=== PATIENT | male | born 1940 | race Caucasian/White ===

== ENCOUNTER 2022-04-17 09:50 | Inpatient (IN) | payer MEDICARE, SELFPAY ==
[2022-04-17] VITALS (15 sets, daily range): BP systolic 104–149; BP diastolic 65–92; PULSE 77–89; RESP 16–20; TEMP 37.2–37.4; O2SAT 91–98; BMI 26.4
--- NOTE | 2022-04-17 12:29 | CRLHL7_ITS ---
For Patients: As a result of the Century Cures Act, medical imaging exams and procedure reports are released immediately into your electronic medical record. You may view this report before your referring provider. If you have questions, please contact your health care provider. INDICATION: Abdominal pain x2 days. TECHNIQUE: CT abdomen and pelvis acquired with 100 cc Isovue 370 IV contrast. COMPARISON: None. FINDINGS: Lower chest: Scattered dependent atelectasis. Liver: Unremarkable. Normal in size and attenuation. No suspicious masses. Gallbladder and bile ducts: Unremarkable. No stones or inflammation. No biliary dilatation. Pancreas: Unremarkable. No mass or inflammation. Spleen: Unremarkable. Normal in size. No masses. Adrenal glands: Unremarkable. No nodules. Kidneys: Tiny hypodensities in both kidneys, too small to characterize. No suspicious masses, stones, or hydronephrosis. GI tract: Moderately distended appendix with appendicolith at the base (series 2/image 98). Significant wall thickening with inflammatory stranding about the adjacent cecum without dominant mass. No drainable fluid collections. Vasculature: Moderate aortoiliac arterial calcifications. Abdominal aorta is normal in caliber. Mesenteric arteries are patent. Lymph nodes: No lymphadenopathy. Peritoneum/Abdominal Wall: Unremarkable. No sign of mass or infiltration. No free air or significant free fluid. Pelvis: Mild prostatomegaly. Mildly distended bladder. Bones: Degenerative changes of the osseous structures. IMPRESSION: Findings suggestive of acute relatively uncomplicated appendicitis without drainable fluid collections. Significant inflammatory changes with wall thickening about the cecum, without dominant mass, favored to represent reactive inflammatory changes (particularly in this patient with appendicolith). However, consider endoscopic evaluation upon treatment form more definitive diagnosis. Case discussed with Dr. Aldrich at 1:20 p.m. on 04/17/2022. Please note that all CT scans at this facility use dose modulation, iterative reconstruction, and/or weight-based dosing when appropriate to reduce radiation dose to as low as reasonably achievable. Dictated by Jemal Khoury MD @ 04/17/2022 3:26:21 PM (Electronically Signed)
--- NOTE | 2022-04-17 12:49 | ED_ITS ---
[facility] - General Adult General Date Seen: 04/17/22 Chief complaint: Abdominal Pain Stated complaint: Abdominal pain Time Seen by Provider: 04/17/22 12:16 Source: patient History of Present Illness HPI narrative: Patient is an 81-year-old male here for evaluation of right lower quadrant pain. He says he has had pain in that area for the past couple of days and it seems to be getting worse. He indicates the right lower quadrant and right pelvis as the area of pain. He says as long as he is laying kind of still it does not hurt too badly but when he walks or tries to have a bowel movement he has a lot of pain. His appetite is decreased quite a bit over the past couple of days any really did not have much to eat today. He has had some nausea but has not had any vomiting. He denies diarrhea, says he has not had much in the way of bowel movements the past couple of days because he does not want to push. No black or bloody stools. Denies fever or urinary symptoms. He does have a history of remote hernia surgery on that side but has not noticed any bulges or swelling. 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 Related Data Home Medications Medication Instructions Recorded Confirmed No Known Home Medications 04/17/22 04/17/22 Allergies Allergy/AdvReac Type Severity Reaction Status Date / Time No Known Drug Allergies Allergy Verified 04/17/22 10:29 Review of Systems Status of ROS: Reports: 10 or more systems reviewed and unremarkable except as noted in History and below Exam Narrative: Exam Narrative: Vital signs as noted above. In general, an alert, well-appearing patient. Looks comfortable. Easily. Head: Normocephalic, atraumatic. Eyes: Pupils are equal reactive. Extraocular movements are full. Conjunctivae are normal. ENT: Mucous membranes are moist. Throat is normal. Neck: Supple without lymphadenopathy. Heart: Regular rate and rhythm. No murmur or rub. Lungs: Clear bilaterally. No increased work of breathing, crackles or wheezes. Abdomen: Nondistended. Isolated right lower quadrant tenderness with guarding. Bowel sounds are quiet. No palpable hernia. Extremities: Well perfused. No edema. No calf tenderness. Pulses intact. Neurologic: Patient is alert and oriented to person and place. Speech is fluent. Face is symmetric. Moves all extremities equally. Affect: Normal. Skin: Warm and dry. Well perfused. Const: Vital Signs, click to edit/add: Vital Signs - 24 hr 04/17/22 10:25 04/17/22 13:57 Temperature 99.4 F Pulse Rate [Right Pulse Oximeter] 89 89 Respiratory Rate 20 17 Blood Pressure [Ri ght Upper Arm] 125/75 149/87 H Pulse Oximetry 96 97 Oxygen Delivery Me thod Room Air Room Air Documenting provider has reviewed patient's vital signs: yes Course Course Hospital Course: Following initial evaluation, patient had an IV established, labs were drawn. White blood cell count is elevated at 16, hemoglobin is 13.1. Platelets normal. Metabolic panel is unremarkable. CRP is elevated at 8.8. UA was ordered but has not yet been obtained. Patient declined anything for pain. I did given 500 mL of normal saline given that he said he had not been taking much in orally today. Given his abdominal tenderness and worsening right lower quadrant pain, concern was for possible appendicitis. Other considerations were colitis, diverticulitis, aortic pathology felt less likely given duration of symptoms. Bowel obstruction less likely in the absence of vomiting. Urinary pathology less likely without urinary symptoms. Patient does not have any upper abdominal symptoms, therefore my suspicion for hepatitis, cholecystitis, cholangitis, pancreatitis, gastritis, was lessened. CT scan of the abdomen by my review showed a dilated and thickened appendix with surrounding inflammatory changes and inflamed bowel. I discussed his case with Dr. Whitley, who agreed. Final radiology report is pending at this time. Plan is for appendectomy, awaiting final radiology report to determine whether any evidence of perforation exists. Holding off on antibiotics per Dr. Whitley. Patient continues to feel comfortable and declines need for anything for pain. Hemodynamically stable. Reevaluation(s) Reevaluation #1: Final radiology report is as follows: Findings suggestive of acute relatively uncomplicated appendicitis without drainable fluid collections. Significant inflammatory changes with wall thickening about the cecum, without dominant mass, favored to represent reactive inflammatory changes (particularly in this patient with appendicolith). However, consider endoscopic evaluation upon treatment form more definitive diagnosis. Note that radiologist dictated that he discussed the report with me at 1:20 a.m., case was read at 3:30 a.m. and was not discussed with me in person. No evidence of perforation. Mention is made of consideration of endoscopic evaluation of colon if indicated to further evaluate after surgery. Vital Signs Vital signs: Initial Vital Signs Temperature 99.4 F 04/17/22 10:25 Temperature Source Temporal Artery Scan 04/17/22 10:25 Pulse Rate 89 04/17/22 10:25 Respiratory Rate 20 04/17/22 10:25 Blood Pressure 125/75 04/17/22 10:25 Blood Pressure Mean 91 04/17/22 10:25 Blood Pressure Position Sitting 04/17/22 10:25 Pulse Oximetry 96 04/17/22 10:25 Oxygen Delivery Method 04/17/22 10:25 Vital Signs Temperature 99.4 F 04/17/22 10:25 Pulse Rate 89 04/17/22 10:25 Respiratory Rate 20 04/17/22 10:25 Blood Pressure 125/75 04/17/22 10:25 Pulse Oximetry 96 04/17/22 10:25 Oxygen Delivery Method 04/17/22 10:25 Temperature 99.4 F 04/17/22 10:25 Pulse Rate 89 04/17/22 13:57 Respiratory Rate 17 04/17/22 13:57 Blood Pressure 149/87 H 04/17/22 13:57 Pulse Oximetry 97 04/17/22 13:57 Oxygen Delivery Method 04/17/22 13:57 Medical Decision Making Lab Data Labs: Lab Results 04/17/22 04/17/22 Range/Units 12:32 12:32 WBC 16.23 H (4.50-11.00) K/uL RBC 4.33 (4.30-5.90) m/uL Hgb 13.1 L (13.5-17.5) gm/dL Hct 39.1 (37.0-53.0) % MCV 90 (80-100) fL MCH 30 (26-34) pg MCHC 34 (32-36) gm/dL RDW Coeff of Gelacio 13.2 (11.5-15.5) % Plt Count 229 (140-440) K/uL Neut % (Auto) 83.7 H (42.0-72.0) % Lymph % (Auto) 7.0 L (20-44) % Cook % (Auto) 8.7 (0.0-11.0) % Eos % (Auto) 0.1 (0.0-7.0) % Baso % (Auto) 0.1 (0.0-3.0) % Neut # (Auto) 13.60 H (1.7-7.0) K/uL Lymph # (Auto) 1.10 (0.90-2.90) K/uL Cook # (Auto) 1.40 H (0.00-0.90) K/UL Eos # (Auto) 0.00 (0.00-0.50) K/uL Baso # (Auto) 0.00 (0.00-0.30) K/uL Sodium 137 (135-149) mmol/L Potassium 4.0 (3.6-5.1) mmol/L Chloride 105 (96-114) mmol/L Carbon Dioxide 23 (20-32) mmol/L BUN 20 (7-30) mg/dL Creatinine 1.1 (0.5-1.5) mg/dL Estimated Creat Clear 55.85 Estimated GFR 67 ml/min Glucose 107 (60-115) mg/dL Calcium 9.1 (8.4-10.6) mg/dL C-Reactive Protein 8.8 H (0.5-1.0) mg/dL Discharge Plan Discharge Clinical Impression: Acute appendicitis Patient Disposition: Admitted As Inpatient Condition: Stable
[2022-04-17 12:59] LABS: Basophils Percent Auto 0.1 % (0.0-3.0); Eosinophils Percent Auto 0.1 % (0.0-7.0); Hematocrit 39.1 % (37.0-53.0); Hemoglobin* 13.1 gm/dL (13.5-17.5); Immature Granulocytes Pct Auto 0.4 %; Mean Corpuscular HGB Conc 34 gm/dL (32-36); Mean Corpuscular Hemoglobin 30 pg (26-34); Mean Corpuscular Volume 90 fL (80-100); Monocytes Percent Auto 8.7 % (0.0-11.0); Neutrophils Percent Auto 83.7 % (42.0-72.0); Platelet Count* 229 K/uL (140-440); RDW Coefficient of Variation % 13.2 % (11.5-15.5); Red Blood Count 4.33 m/uL (4.30-5.90); White Blood Count* 16.23 K/uL (4.50-11.00)
[2022-04-17 13:02] LABS: Slide Review Reflex No
[2022-04-17] MEDS: 0.9 % SODIUM CHLORIDE 500 ML 500 ML IV (13:12)
[2022-04-17 13:14] LABS: Chloride* 105 mmol/L (96-114)
[2022-04-17 13:15] LABS: Sodium* 137 mmol/L (135-149)
[2022-04-17 13:17] LABS: Creatinine* 1.1 mg/dL (0.5-1.5); Est. Creatinine Clearance* 55.85; Estimated Glomerular Filt Rate 67 ml/min
[2022-04-17 13:18] LABS: Blood Urea Nitrogen* 20 mg/dL (7-30); Carbon Dioxide* 23 mmol/L (20-32)
[2022-04-17 13:19] LABS: Calcium* 9.1 mg/dL (8.4-10.6); Glucose* 107 mg/dL (60-115)
[2022-04-17 13:21] LABS: C Reactive Protein* 8.8 mg/dL (0.5-1.0)
--- NOTE | 2022-04-17 16:13 | PM.GSCN ---
History of Present Illness Consult details Date Seen: 04/17/22 Consult date: 04/17/22 Narrative: Patient presented to the emergency department for 3 day history of right lower quadrant abdominal pain. He states that he has never had pain like this before. He came into the emergency department today because the pain never went away and continued to get worse. Moving makes the pain more severe, nothing seems to improve it. He denies any fevers or chills at home. No reported diarrhea but has suffered from constipation for the last 6 months. Denies any nausea or vomiting but has had a decreased appetite. He last ate yesterday evening. His surgical history is positive for an open sigmoidectomy and open right inguinal hernia repair. He denies any problems with anesthesia. He does not take any medications on a daily basis. He does live independently with his and is very active. Review of Systems Status of ROS: Reports: 10 or more systems reviewed and unremarkable except as noted in History and below Meds Home Medications and Allergies Home Medications Medication Instructions Recorded Confirmed Type No Known Home Medications 04/17/22 04/17/22 History Allergies Allergy/AdvReac Type Severity Reaction Status Date / Time No Known Drug Allergies Allergy Verified 04/17/22 10:29 Exam Narrative: Exam Narrative: General: Alert and oriented, no acute distress Respiratory: Equal breath rise bilaterally, maintained on room air CV: Regular rhythm rate, well perfused Abdomen: Midline incision well healed. Soft, nondistended, tender to palpation right lower quadrant with some guarding. Const: Vital Signs, click to edit/add: Vital Signs - 24 hr 04/17/22 10:25 04/17/22 13:57 Temperature 99.4 F Pulse Rate [Right Pulse Oximeter] 89 89 Respiratory Rate 20 17 Blood Pressure [Ri ght Upper Arm] 125/75 149/87 H Pulse Oximetry 96 97 Oxygen Delivery Me thod Room Air Room Air Results Labs Labs: Abnormal lab results 04/17/22 04/17/22 Range/Units 12:32 12:32 WBC 16.23 H (4.50-11.00) K/uL Hgb 13.1 L (13.5-17.5) gm/dL Neut % (Auto) 83.7 H (42.0-72.0) % Lymph % (Auto) 7.0 L (20-44) % Neut # (Auto) 13.60 H (1.7-7.0) K/uL [place] # (Auto) 1.40 H (0.00-0.90) K/UL C-Reactive Protein 8.8 H (0.5-1.0) mg/dL Diabetes panel 04/17/22 Range/Units 12:32 Sodium 137 (135-149) mmol/L Potassium 4.0 (3.6-5.1) mmol/L Chloride 105 (96-114) mmol/L Carbon Dioxide 23 (20-32) mmol/L BUN 20 (7-30) mg/dL Creatinine 1.1 (0.5-1.5) mg/dL Glucose 107 (60-115) mg/dL Calcium 9.1 (8.4-10.6) mg/dL Calcium panel 04/17/22 Range/Units 12:32 Calcium 9.1 (8.4-10.6) mg/dL Pituitary panel 04/17/22 Range/Units 12:32 Sodium 137 (135-149) mmol/L Potassium 4.0 (3.6-5.1) mmol/L Chloride 105 (96-114) mmol/L Carbon Dioxide 23 (20-32) mmol/L BUN 20 (7-30) mg/dL Creatinine 1.1 (0.5-1.5) mg/dL Glucose 107 (60-115) mg/dL Calcium 9.1 (8.4-10.6) mg/dL Adrenal panel 04/17/22 Range/Units 12:32 Sodium 137 (135-149) mmol/L Potassium 4.0 (3.6-5.1) mmol/L Chloride 105 (96-114) mmol/L Carbon Dioxide 23 (20-32) mmol/L BUN 20 (7-30) mg/dL Creatinine 1.1 (0.5-1.5) mg/dL Glucose 107 (60-115) mg/dL Calcium 9.1 (8.4-10.6) mg/dL All other labs normal. Imaging Abdomen CT scan report/results: report reviewed and image reviewed Assessment and Plan Assessment and plan (1) Acute appendicitis: Status: Acute Plan The patient presented with a history, exam and imaging findings consistent with acute appendicitis. I discussed the treatment options with the patient including non-surgical and surgical options. I recommended laparoscopic appendectomy. The risks of surgery were reviewed with the patient including the risks of bleeding, post-operative wound or intra-abdominal infection, injury to abdominal structures and possible conversion to an open operation. We also discussed anesthetic complications including CT, stroke, respiratory failure and blood clots. The patient voiced an understanding of our conversation, had the opportunity to ask questions, agreed to accept the risks of surgery and asked that we proceed with surgery. -OR for laparoscopic appendectomy -NPO -IV Jatinder
[2022-04-17] MEDS: LACTATED RINGERS 1000 ML 1,000 ML 75 ML IV ×2 (16:30→19:47)
[2022-04-17] MEDS: PIPERACILLIN/TAZOBACTAM 3.375 GM INJ IVPB (16:40)
--- NOTE | 2022-04-17 19:44 | SUR.OPER ---
contacted at [phone], [phone], and [phone] with updates.
--- NOTE | 2022-04-17 19:49 | P.NB_ITS ---
Nerve Block Nerve Block Time Seen by Provider: 16:40 Date Seen: 04/17/22 Type of block requested by surgeon for post-operative analgesia: TAP Side: bilateral Time out performed: Yes Verification of patient name: Yes Verification of date of : Yes Site marking: site marked Name of person performing procedure: Gene Hutton Continuous monitoring Was continuous monitoring of O2 sat, B/P, information technology specialist, recorded every 15 minutes?: Yes Procedure Checklist: sterile prep, needles and gloves Ultrasound guided. Images saved: Yes Medications given in 5ml increments after negative aspiration: Marcaine %: 0.25 mL: 30 Needle gauge: 20 and Exparel mL: 10 Needle gauge: 20 Patient tolerated procedure well: Yes Additional comments: Injected in 5ml increments after negative aspiration Block Charges Block Charge (with Pro Fee): TAP Bilateral Use of Ultrasound Machine for Block: Yes- US Guidance/pain block
--- NOTE | 2022-04-17 20:29 | P.GSOP_ITS ---
Operative Note Date of procedure: 04/17/22 Pre-op diagnosis: 1. Acute appendicitis Post-op diagnosis: 2. Acute appendicitis, perforation and necrosis at base of appendix Type of Procedure: Laparoscopic appendectomy converted to open ileocecectomy Procedure Description: After discussing the risks and benefits of the procedure, the patient signed informed consent.? The operative site was marked and the patient was brought to the operating room and placed on the operating table in supine position.? Care was taken to pad the patient's pressure points.?? The patient was then [intubated/given sedation] by anesthesia.?? The operative site was then prepped and draped in the usual sterile fashion.? A time-out was then performed. Entrance to the abdomen was obtained via a 5 mm optical trocar in the left upper quadrant. The abdomen was insufflated and briefly surveyed for any signs of injury. There were none. A 12 mm port was placed lateral to the umbilicus as we ll as a 5 mm port in the left lower quadrant under direct vision. There were a significant amount of midline omental adhesions present, obscuring my view of the appendix. These were taken down with careful dissection via the LigaSure. Once the adhesions were free the patient was then placed in Trendelenburg position with the right side up. The cecum was edematous and erythematous. There was adherent necrotic fat to the appendiceal base. The lateral and anterior abdominal wall adhesions were bluntly dissected free with a copious amount of purulence present. The right colon was mobilized with the LigaSure device by taking down the white line of Toldt. This allowed the cecum to come towards midline and better visualize the appendix base. With blunt dissection the base was seen and appeared frankly necrotic with a perforation right at the base and a small amount of feculent material present in the surrounding area. Due to the location of the perforation and associated edema of the cecum the decision was made to convert to an open operation The laparoscopic equipment was taken off the field. A transverse right lower quadrant incision was made with a 15 scalpel. Dissection was carried down through subcutaneous tissue with electrocautery. The anterior fascia was incised with electrocautery and extended medial and lateral. The underlying rectus muscle was partially divided with cautery. The posterior fascia was grasped and sharply incised to enter into the abdomen. The posterior fascia was then extended medial and lateral. A medium Alcon wound retractor was placed into the wound. Using [place]'s the cecum was identified and brought out onto the field. Using blunt and sharp dissection the body of the appendix was dissected free from the underlying cecum. The appendiceal mesentery was ligated with a 3-0 Vicryl tie. The appendix base was frankly necrotic with again the underlying perforation identified. The appendix body was then transected with electrocautery and passed off the field. I initially tried to close the cecal defect with a double layer closure of running 3-0 Vicryl on the mucosa and overlying 3-0 silk suture Lembert stitches. Unfortunately secondary to the inflammation and surrounding edema the sutures continued to tear through the tissue. The decision was then made to proceed with an ileocecectomy. The right colon was further mobilized by carefully taking down the lateral attachments with electrocautery. Mobilization of the small bowel was very difficult secondary to adhesions in the pelvis. The right lower quadrant incision was extended medial and lateral, to help assist with visualization. The adhesions were taken down with a right angle and electrocautery. There was a moderate amount of inter bowel adhesions, which were sharply excised. Once mobilization was complete a point of transection was identified on healthy ascending colon. A mesenteric defect was created along the colonic wall with electrocautery. Using a hand-held SADA 100 mm stapler the descending colon was transected. The staple line was inspected and appeared viable. A point of transection was then identified on healthy distal ileum. A mesenteric defect was created along the small bowel wall with electrocautery. Using a hand-held SADA 100 mm stapler the small bowel was transected. The staple line was inspected and appeared viable. A corner of each staple line along the small bowel and colon were then sharply excised. An arm of each stapler was placed in to the small bowel and colon enterotomies. The 100 mm staple load was then fired to create a functional [id number] anastomosis. As the stapler was removed the mucosa staple lines were inspected, appeared viable and had adequate hemostasis. The common enterotomy was closed with 3-0 silk suture Lembert stitches. A single 3-0 silk suture crotch stitch was placed. The mesenteric defect was closed with running 3-0 Vicryl suture. After the completion of the anastomosis the staple line on the ascending colon was slightly dusky in appearance, so I made the decision to over sew the staple line. The staple line was sewed with interrupted 3-0 silk Lembert stitches. The anastomosis was palpated and widely patent. The abdomen was then irrigated with warm normal saline. At this point in the procedure all dirty equipment was removed and we changed our outer gloves. The posterior fascia and peritoneum was closed with running 3-0 Vicryl. The anterior fascia was then closed with two running 1 PDS suture. The subcutaneous tissues were irrigated with a mixture of normal saline and iodine. The skin was then closed with jenna. The 12 mm port site fascia was closed with a figure-eight 0 Vicryl stitch. The laparoscopic sites were then closed with 4-0 Monocryl suture. The laparoscopic sites were dressed with Steri-Strips. The right lower quadrant incision was dressed with 4 x 4 and Medipore tape. Instrument sponge and needle counts were correct at the end of the case. The patient was then woken and transported to the PACU in stable condition. ? Sterile dressings were then applied. ? The patient was then woken and transported to the recovery area in stable condition. ? The patient tolerated the procedure well. Indications: Perforated appendicitis Findings: Perforated appendicitis with a necrotic appendix base and associated cecal edema. Anesthesia: GETA Surgeon: Nyasia Whitley MD Estimated blood loss (mL): 20 Additional Specimen Information: 1. Appendix 2. Cecum and distal ileum Condition: stable Disposition: floor
--- NOTE | 2022-04-17 21:25 | P.IMCN_ITS ---
Date of Consult Patient: Jeannie Patient Consult date: 04/17/22 Requesting Physician: General Surgery Primary Care Provider: Lisa Marcus MD Consult Narrative Reason for consult: Narrative: HOSPITALIST CONSULT Hospital Day # 1 Post Op Day # 0 Date of procedure: 04/17/22/Dr. Whitley Acute appendicitis, perforation and necrosis at base of appendix Type of Procedure: Laparoscopic appendectomy converted to open ileocecectomy Estimated blood loss (mL): 20 The hospital medicine team was asked by General Surgery team to manage the patient's peripheral neuropathy, advanced age, prolonged anethesia There have been no perioperative concerns or questions. His H/P was reviewed as were his annual physicals at the [facility]. His last physical was in 08/01. He does not take prescription meds and has had a few routine surgeries to include a hemicolectomy, sphincterectomy, left total knee replacement, left ankle fracture without anesthesia complications. Postop vitals 130/71 Pulse 79 Respiratory rate 18 Socks 98% on 3 L nasal cannula oxygen 88.4 kilos Preop labs: 16.23 leukocytosis, 83.7% neutrophils Hemoglobin 13.1 Platelet count 229 Basic chemistries are normal with a creatinine of 1.1 and GFR of 67 CRP 8.8 I updated the [facility] histories and Medications and Allergies in the Expanse tabs REVIEW OF SYSTEMS: 12-point ROS completed with patient and negative unless otherwise stated in HPI or below. PHYSICAL EXAM: CODE STATUS: FULL CODE CONSTITUTIONAL: groggy but answers questions appropriately; knows how long he's been . gives me his history. holding his 's hand. VITAL SIGNS: see record. HEENT: Normocephalic, atraumatic. PERRL, EOMI, conjunctivae pink, no scleral icterus. Ears and nose externally normal. Pharynx normal. NECK: No JVD. No carotid bruit, no thyromegaly, no adenopathy. CHEST: Clear to auscultation bilaterally HEART: No harsh murmurs. S1/S2. ABDOMEN: flat; nondistended. surgical dressing is intact. no hematoma. EXTREMITIES: No edema. NEURO: Cranial nerves intact. Normal affect. No gross deficits. Speech intelligible. SKIN: No rashes, petechiae, concerning changes PSYCHIATRIC: Euthymic. INVESTIGATIONS: EMR Reviewed DISPOSITION: Floor care DVT: Lovenox tomorrow GI: IV PPI PFSH PFSH Medical History (Updated 04/17/22 @ 22:20 by Letty Sim MD) [place] (hard of hearing) 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 Surgical History (Updated 04/17/22 @ 21:49 by Letty Sim MD) H/O fracture of ankle H/O hemicolectomy H/O hernia repair H/O rectal sphincterotomy History of total left knee replacement Meds Home Medications and Allergies Home Medications Medication Instructions Recorded Confirmed Type No Known Home Medications 04/17/22 04/17/22 History Allergies Allergy/AdvReac Type Severity Reaction Status Date / Time No Known Drug Allergies Allergy Verified 04/17/22 10:29 Exam Const: Vital Signs, click to edit/add: Vital Signs - 24 hr 04/17/22 10:25 04/17/22 13:57 04/17/22 20:30 Temperature 99.4 F 99.4 F Pulse Rate 82 Pulse Rate [Right Pulse Oximeter] 89 89 Respiratory Rate 20 17 16 Blood Pressure 133/81 Blood Pressure [Ri ght Upper Arm] 125/75 149/87 H Pulse Oximetry 96 97 93 Oxygen Delivery Me thod Room Air Room Air Room Air Oxygen Flow Rate 04/17/22 20:35 04/17/22 20:40 04/17/22 20:45 Temperature Pulse Rate 84 80 81 Pulse Rate [Right Pulse Oximeter] Respiratory Rate 16 16 18 Blood Pressure 126/92 H 108/80 131/80 Blood Pressure [Ri ght Upper Arm] Pulse Oximetry 97 97 98 Oxygen Delivery Me thod Nasal Cannula Room Air Room Air Oxygen Flow Rate 3 3 3 04/17/22 20:50 Temperature Pulse Rate 79 Pulse Rate [Right Pulse Oximeter] Respiratory Rate 18 Blood Pressure 130/71 Blood Pressure [Ri ght Upper Arm] Pulse Oximetry 98 Oxygen Delivery Me thod Oxygen Flow Rate Labs Labs: Short CBC 04/17/22 Range/Units 12:32 WBC 16.23 H (4.50-11.00) K/uL Hgb 13.1 L (13.5-17.5) gm/dL Hct 39.1 (37.0-53.0) % Plt Count 229 (140-440) K/uL BMP 04/17/22 12:32 Sodium 137 Potassium 4.0 Chloride 105 Carbon Dioxide 23 BUN 20 Creatinine 1.1 Glucose 107 Calcium 9.1 Assessment and Plan Assessment and plan (1) Acute appendicitis: Problem comment: Hospital medicine team is happy to follow this patient through to discharge. I have asked for some add on labs to his preop blood draw to include a BNP, troponin, LFTs and a procalcitonin. He is hemodynamically stable. His pain is well managed. I have ordered a respiratory panel, liver he is COVID vaccinated x4. 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 Status: Acute (2) 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: Problem comment: saw neurology in 2015; sent to PT. c/o of cold feet and left foot drop. Good for PT/OT to know as we head into postop recovery and mobility Status: Acute (3) [place] (hard of hearing): Problem comment: Wears hearing aids Status: Acute
[2022-04-17] MEDS: HYDROmorphone 0.5 mg/0.5 ml inj IVP (21:42)
[2022-04-17] MEDS: PIPERACILLIN/TAZOBACTAM 3.375 GM in 0.9 % SODIUM CHLORIDE Mini-bag 100 ML IVPB (21:43)
[2022-04-17] MEDS: LACTATED RINGERS 1000 ML 1,000 ML 100 ML IV (21:43)
[2022-04-17 21:52] LABS: INR 1.02 (0.91-1.10)
[2022-04-17 22:10] LABS: Troponin I* 0.02 ng/mL (0.01-0.04)
[2022-04-17 22:12] LABS: NT Pro B Type NatriureticPept* 178 pg/mL
[2022-04-17 22:25] LABS: Albumin* 4.4 g/dL (3.3-5.0)
[2022-04-17 22:27] LABS: Bilirubin Direct* 0.2 mg/dL (0.0-0.5); Bilirubin Total* 2.5 mg/dL (0.1-1.5)
[2022-04-17 22:28] LABS: Alanine Aminotransferase* 18 U/L (4-50); Alkaline Phosphatase* 92 U/L (40-150); Aspartate Amino Transferase* 37 U/L (12-35); Total Protein* 7.6 g/dL (6.0-8.3)
[2022-04-17 22:35] LABS: PCR FLU A Negative PCR FLU A (Negative); PCR FLU B Negative PCR FLU B (Negative); PCR RSV Negative PCR RSV (Negative)
[2022-04-17 22:57] LABS: SARS PCR* Negative SARS-CoV-2 (Negative)
[2022-04-18] VITALS (10 sets, daily range): BP systolic 96–120; BP diastolic 57–76; PULSE 78–85; RESP 18–20; TEMP 37–37.8; O2SAT 91–97
[2022-04-18] MEDS: PIPERACILLIN/TAZOBACTAM 3.375 GM in 0.9 % SODIUM CHLORIDE Mini-bag 100 ML IVPB ×4 (03:03→20:44)
[2022-04-18] MEDS: HYDROmorphone 0.5 mg/0.5 ml inj IVP ×2 (03:08→06:43)
[2022-04-18] MEDS: LACTATED RINGERS 1000 ML 1,000 ML 100 ML IV ×2 (06:43→20:43)
--- NOTE | 2022-04-18 07:51 | PC.NURSE ---
Patient to unit at 2100. Pleasant and cooperative. Nevin at bedside and supportive. 3 lap sites with steri-strips and R. lateral incision C/D/I. Rates pain 0-4/10. PRN Dilaudid x3 for relief. A1/walker/GB. Tolerating small amounts of ice chips. Denies N/V. Unable to void. Bladder scan for 374.
[2022-04-18 07:52] LABS: Hematocrit 36.9 % (37.0-53.0); Hemoglobin* 12.2 gm/dL (13.5-17.5); Immature Granulocytes Pct Auto 0.1 %; Lymphocytes Percent Auto 5.1 % (20-44); Mean Corpuscular HGB Conc 33 gm/dL (32-36); Mean Corpuscular Hemoglobin 30 pg (26-34); Mean Corpuscular Volume 91 fL (80-100); Neutrophils Percent Auto 85.8 % (42.0-72.0); Platelet Count* 226 K/uL (140-440); RDW Coefficient of Variation % 13.4 % (11.5-15.5); Red Blood Count 4.05 m/uL (4.30-5.90); White Blood Count* 15.06 K/uL (4.50-11.00)
[2022-04-18 07:58] LABS: Slide Review Reflex No
[2022-04-18 08:07] LABS: Chloride* 108 mmol/L (96-114); Sodium* 138 mmol/L (135-149)
[2022-04-18 08:09] LABS: Creatinine* 1.2 mg/dL (0.5-1.5); Est. Creatinine Clearance* 51.19; Estimated Glomerular Filt Rate 60 ml/min
[2022-04-18 08:10] LABS: Blood Urea Nitrogen* 20 mg/dL (7-30); Carbon Dioxide* 22 mmol/L (20-32); Glucose* 139 mg/dL (60-115)
--- NOTE | 2022-04-18 13:45 | PM.GSPN ---
Subjective Subjective Date Seen: 04/18/22 Interval history: Jayson is doing well this morning. Minimal pain. He is hoping to get up and ambulate. He has continued to have urinary retention however. He has gotten straight catheterization x2. No nausea. Exam Narrative: Exam Narrative: General: No acute distress CV: Regular rate and rhythm Pulmonary: Clear to auscultation bilaterally Abdomen: Soft, minimally tender. Incisions are clean and dry without erythema. Const: Vital Signs, click to edit/add: Vital Signs - 24 hr 04/17/22 22:43 04/17/22 21:00 04/17/22 21:15 Temperature 98.9 F 98.9 F 98.9 F Pulse Rate 79 Pulse Rate [Right Pulse Oximeter] 79 80 Respiratory Rate 18 18 18 Blood Pressure Blood Pressure [Le ft Arm] 133/76 133/76 130/76 Blood Pressure [Ri ght Upper Arm] Pulse Oximetry 92 94 Oxygen Delivery Me thod Room Air Room Air Room Air Oxygen Flow Rate 04/17/22 21:30 04/17/22 21:45 04/17/22 22:00 Temperature 98.9 F 98.9 F 99.1 F Pulse Rate Pulse Rate [Right Pulse Oximeter] 82 83 85 Respiratory Rate 16 18 16 Blood Pressure Blood Pressure [Le ft Arm] 123/76 121/69 106/66 Blood Pressure [Ri ght Upper Arm] Pulse Oximetry 92 91 94 Oxygen Delivery Me thod Room Air Room Air Room Air Oxygen Flow Rate 04/17/22 22:30 04/17/22 23:00 04/18/22 00:00 Temperature 99.1 F 99.1 F 99.1 F Pulse Rate Pulse Rate [Right Pulse Oximeter] 81 77 81 Respiratory Rate 16 18 18 Blood Pressure Blood Pressure [Le ft Arm] 113/68 104/65 114/68 Blood Pressure [Ri ght Upper Arm] Pulse Oximetry 94 91 92 Oxygen Delivery Me thod Room Air Room Air Room Air Oxygen Flow Rate 04/18/22 01:00 04/18/22 02:00 04/18/22 03:00 Temperature 99.2 F 99.2 F 99.2 F Pulse Rate Pulse Rate [Right Pulse Oximeter] 82 85 80 Respiratory Rate 18 18 20 Blood Pressure Blood Pressure [Le ft Arm] 120/68 111/65 103/63 Blood Pressure [Ri ght Upper Arm] Pulse Oximetry 92 91 91 Oxygen Delivery Me thod Room Air Room Air Room Air Oxygen Flow Rate 04/17/22 13:57 04/17/22 20:30 04/17/22 20:35 Temperature 99.4 F Pulse Rate 82 84 Pulse Rate [Right Pulse Oximeter] 89 Respiratory Rate 17 16 16 Blood Pressure 133/81 126/92 H Blood Pressure [Le ft Arm] Blood Pressure [Ri ght Upper Arm] 149/87 H Pulse Oximetry 97 93 97 Oxygen Delivery Me thod Room Air Room Air Nasal Cannula Oxygen Flow Rate 3 04/17/22 20:40 04/17/22 20:45 04/17/22 20:50 Temperature Pulse Rate 80 81 79 Pulse Rate [Right Pulse Oximeter] Respiratory Rate 16 18 18 Blood Pressure 108/80 131/80 130/71 Blood Pressure [Le ft Arm] Blood Pressure [Ri ght Upper Arm] Pulse Oximetry 97 98 98 Oxygen Delivery Me thod Room Air Room Air Oxygen Flow Rate 3 3 Labs/Imaging Labs Labs: White blood cell count remains elevated but is 15 from 16. Hemoglobin is 12 from 13 Electrolytes within normal limits but for mild hypocalcemia Progress Note: A&P Assessment and plan (1) Acute appendicitis: Status: Acute (2) S/P small bowel resection: Problem details: Ileocecectomy for perforated appendicitis Status: Acute (3) Urinary retention: Status: Acute Plan Jayson is an 81-year-old male who is postop day 1 status post open ileocecectomy for perforated appendicitis. He is doing well today. -continue maintenance IV fluids -encouraged him to go very slowly with sips of clear liquids as he will likely have an ileus. Burping or nausea should result in NPO status again -continue IV Zosyn -hemoglobin is slightly lower, however stable likely mostly dilutional. Have ordered Lovenox to start tomorrow for DVT prophylaxis. -ambulate with assist as this patient is somewhat unsteady. Will order PT OT. -will continue bladder scans and post void residuals. If he continues to have urinary retention will place a So today. I explained the rationale behind this to the patient and his family.
[2022-04-18] MEDS: ACETAMINOPHEN 325 MG TABLET 650 MG PO ×2 (14:14→23:37)
--- NOTE | 2022-04-18 20:05 | PC.NURSE ---
shift note [id number]: pt pleasant and cooperative. pain controlled with tylenol and heating pad. up to ambulate in hallway today and tolerated this well with walker and GB. BS hypo active. no flatus reported. Pt retaining urine. Bladder scan this AM at 0700- 374cc's, 0830 pt able to void 70cc's, post void residual scanned for 258 however when straight cathed at 0940, 750cc clear/ngozi urine. pt attempted to void at 1500, unsuccessful. Bladder scanned at 1520 for 86cc in bladder. Certified Energy Manager discussed with Dr. Vides who agreed if patient is unable to void next attempt, So catheter will be placed. Certified Energy Manager passed this along to next shift. afebrile. denies nausea with sips of clears. surgical dressing/lap sites CDI.
[2022-04-19] VITALS (7 sets, daily range): BP systolic 106–121; BP diastolic 60–73; PULSE 75–938; RESP 16–18; TEMP 36.8–37.4; O2SAT 92–96
[2022-04-19] MEDS: PIPERACILLIN/TAZOBACTAM 3.375 GM in 0.9 % SODIUM CHLORIDE Mini-bag 100 ML IVPB ×4 (02:30→20:32)
--- NOTE | 2022-04-19 05:36 | PC.NURSE ---
Addendum entered by Cari Wiley RN 04/19/22 06:57: Patient voided 250mL @0600 Original Note: [id number]: Patient pleasant and cooperative. Rates pain 2/10. Declined pain medications. Using the Aqua K pad for pain relief. Tylenol administered for 100.1 temp, decreased to 99.3. BS active. Denies passing gas. Lap sites and lateral incision C/D/I. A1/walker/GB/. Tolerating clears. Denies N/V. Voided 175mL at 2030 with post residue of 157. Voided 250 @2330.
[2022-04-19 07:13] LABS: Basophils Percent Auto 0.1 % (0.0-3.0); Eosinophils Percent Auto 0.3 % (0.0-7.0); Hematocrit 35.4 % (37.0-53.0); Hemoglobin* 11.5 gm/dL (13.5-17.5); Immature Granulocytes Pct Auto 0.3 %; Lymphocytes Percent Auto 7.9 % (20-44); Mean Corpuscular HGB Conc 33 gm/dL (32-36); Mean Corpuscular Hemoglobin 30 pg (26-34); Mean Corpuscular Volume 92 fL (80-100); Monocytes Percent Auto 8.1 % (0.0-11.0); Neutrophils Percent Auto 83.3 % (42.0-72.0); Platelet Count* 230 K/uL (140-440); RDW Coefficient of Variation % 13.1 % (11.5-15.5); Red Blood Count 3.87 m/uL (4.30-5.90); White Blood Count* 11.78 K/uL (4.50-11.00)
[2022-04-19 07:17] LABS: Slide Review Reflex No
[2022-04-19 07:26] LABS: Albumin* 3.5 g/dL (3.3-5.0); Chloride* 106 mmol/L (96-114); Sodium* 138 mmol/L (135-149)
[2022-04-19 07:27] LABS: Potassium* 3.8 mmol/L (3.6-5.1)
[2022-04-19 07:29] LABS: Creatinine* 1.3 mg/dL (0.5-1.5); Est. Creatinine Clearance* 47.26; Estimated Glomerular Filt Rate 55 ml/min
[2022-04-19 07:30] LABS: Alanine Aminotransferase* 17 U/L (4-50); Alkaline Phosphatase* 77 U/L (40-150); Aspartate Amino Transferase* 31 U/L (12-35); Bilirubin Direct* 0.5 mg/dL (0.0-0.5); Bilirubin Total* 2.5 mg/dL (0.1-1.5); Blood Urea Nitrogen* 19 mg/dL (7-30); Calcium* 8.3 mg/dL (8.4-10.6); Carbon Dioxide* 26 mmol/L (20-32); Glucose* 104 mg/dL (60-115); Total Protein* 6.6 g/dL (6.0-8.3)
[2022-04-19 07:49] LABS: C Reactive Protein* 20.4 mg/dL (0.5-1.0)
[2022-04-19] MEDS: LACTATED RINGERS 1000 ML 1,000 ML 100 ML IV ×2 (08:21→22:19)
--- NOTE | 2022-04-19 13:59 | PM.GSPN ---
Subjective Subjective Date Seen: 04/19/22 Interval history: Jayson is now able to urinate on his own. He is complaining of some abdominal pain with eating. No nausea. He does have some incisional pain as well when he coughs. Very low-grade fever yesterday Exam Narrative: Exam Narrative: General: No acute distress CV: Regular rate and rhythm Pulmonary: Clear to auscultation bilaterally Abdomen: Soft. Appropriately tender for the postop state. No erythema around incisions. Bowel sounds are present Const: Vital Signs, click to edit/add: Vital Signs - 24 hr 04/18/22 15:00 04/18/22 15:00 04/18/22 19:00 Temperature 98.7 F 99.0 F Pulse Rate [Right Pulse Oximeter] 78 81 78 Respiratory Rate 20 20 18 Blood Pressure [Le ft Arm] 96/57 L 119/66 Pulse Oximetry 92 97 Oxygen Delivery Me thod Room Air Room Air Oxygen Flow Rate 0 04/18/22 23:37 04/19/22 04:18 04/18/22 23:30 Temperature 100.1 F H 99.3 F 100.1 F H Pulse Rate [Right Pulse Oximeter] 85 Respiratory Rate 20 Blood Pressure [Le ft Arm] 120/65 Pulse Oximetry 94 Oxygen Delivery Me thod Room Air Oxygen Flow Rate 04/19/22 02:30 04/19/22 09:00 04/19/22 11:00 Temperature 99.3 F 99 F 99 F Pulse Rate [Right Pulse Oximeter] 82 75 92 Respiratory Rate 18 18 16 Blood Pressure [Le ft Arm] 106/60 112/68 114/65 Pulse Oximetry 93 92 96 Oxygen Delivery Me thod Room Air Room Air Room Air Oxygen Flow Rate Labs/Imaging Labs Labs: White blood cell count is down this morning. CRP is 20 Electrolytes within normal limits Bilirubin remains elevated however this is indirect Progress Note: A&P Assessment and plan (1) S/P small bowel resection: Problem details: Ileocecectomy for perforated appendicitis Status: Acute Plan The patient is an 81-year-old male who is postop day 2 status post ileocecectomy for perforated appendicitis. His urinary retention has resolved. -continue IV fluids. -will decrease his diet to ice chips for comfort given that he states taking in p.o. increased abdominal discomfort -okay to start Lovenox tonight DVT prophylaxis -continue IV Zosyn -recheck labs tomorrow. -continue therapy
[2022-04-19] MEDS: HYDROmorphone 0.5 mg/0.5 ml inj IVP ×2 (14:08→19:32)
[2022-04-19] MEDS: ONDANSETRON 2 MG/ML inj IVP (14:13)
--- NOTE | 2022-04-19 14:53 | PC.NURSE ---
Shift Summary: Patient pleasant and cooperative. Up with one assist, using urinal per self and staff empty as needed. Was clears this morning but has not been tolerating well, c/o nausea and pain 09/19, managed with PRN medication. Aqua-k over abdomen for comfort, dressings dry and intact. Still not passing gas, no BM.
[2022-04-19] MEDS: ENOXAPARIN 40 MG/0.4 ML INJ SUBCUT (20:32)
--- NOTE | 2022-04-19 22:14 | PC.NURSE ---
Shift note: Pt complained os pain of 10/10 art the incisional sites. Pain was managed with IV Deluded. Pt remained in bed for the shift. Incisional sites clean and dry and open to air. Active abdominal sound heard on auscultation.
[2022-04-20] VITALS (9 sets, daily range): BP systolic 96–118; BP diastolic 69–88; PULSE 70–136; RESP 14–18; TEMP 36.7–37.7; O2SAT 92–95
[2022-04-20] MEDS: PIPERACILLIN/TAZOBACTAM 3.375 GM in 0.9 % SODIUM CHLORIDE Mini-bag 100 ML IVPB ×4 (02:20→20:14)
[2022-04-20] MEDS: HYDROmorphone 0.5 mg/0.5 ml inj IVP ×5 (02:21→20:26)
--- NOTE | 2022-04-20 05:06 | PC.NURSE ---
Shift Summary [id number]: Patient pleasant and cooperative. C/o pain 5/10, given PRN dilaudid with relief. Patient stated he has been up x2 during the noc to use urinal at bedside.
[2022-04-20 06:32] LABS: Basophils Absolute Auto 0.02 K/uL (0.00-0.30); Basophils Percent Auto 0.2 % (0.0-3.0); Eosinophils Percent Auto 1.9 % (0.0-7.0); Hemoglobin* 11.2 gm/dL (13.5-17.5); Immature Granulocytes Abs Auto 0.03 K/uL (0.00-0.30); Immature Granulocytes Pct Auto 0.3 %; Lymphocytes Percent Auto 13.4 % (20-44); Mean Corpuscular HGB Conc 33 gm/dL (32-36); Mean Corpuscular Hemoglobin 30 pg (26-34); Mean Corpuscular Volume 91 fL (80-100); Monocytes Percent Auto 9.8 % (0.0-11.0); Neutrophils Percent Auto 74.4 % (42.0-72.0); Platelet Count* 292 K/uL (140-440); RDW Coefficient of Variation % 13.4 % (11.5-15.5); Red Blood Count 3.75 m/uL (4.30-5.90); White Blood Count* 10.27 K/uL (4.50-11.00)
[2022-04-20 06:36] LABS: Slide Review Reflex No
[2022-04-20 07:08] LABS: Chloride* 111 mmol/L (96-114)
[2022-04-20 07:09] LABS: Potassium* 3.7 mmol/L (3.6-5.1); Sodium* 141 mmol/L (135-149)
[2022-04-20 07:11] LABS: Creatinine* 1.3 mg/dL (0.5-1.5); Est. Creatinine Clearance* 47.26; Estimated Glomerular Filt Rate 55 ml/min
[2022-04-20 07:12] LABS: Blood Urea Nitrogen* 19 mg/dL (7-30); Carbon Dioxide* 24 mmol/L (20-32)
[2022-04-20 07:13] LABS: Calcium* 8.2 mg/dL (8.4-10.6); Glucose* 97 mg/dL (60-115)
[2022-04-20 07:34] LABS: C Reactive Protein* 20.2 mg/dL (0.5-1.0)
--- NOTE | 2022-04-20 09:46 | P.GSPN_ITS ---
Subjective Subjective Date Seen: 04/20/22 Interval history: Patient overall feels like he is doing better. His abdominal pain is well controlled. He has been urinating without difficulty. He has not yet passed gas. He has been tolerating some sips of water and ice chips, but denies fe eling hungry for anything more. If he does drink too much he states that he will get nauseous and feel bloated. No other concerns. No fevers overnight. Exam Narrative: Exam Narrative: General: Alert and oriented, no acute distress. Sitting comfortably in bed Abdomen: Soft, nondistended, appropriately tender over incision sites. Right lower quadrant with jenna in place clean/dry/intact. Lap sites with Steri- Strips in place. Const: Vital Signs, click to edit/add: Vital Signs - 24 hr 04/19/22 11:00 04/19/22 15:00 04/19/22 19:00 Temperature 99 F 98.5 F 98.5 F Pulse Rate [Right Pulse Oximeter] 92 83 93 Respiratory Rate 16 16 16 Blood Pressure [Le ft Arm] 114/65 107/67 121/71 Pulse Oximetry 96 94 93 Oxygen Delivery Me thod Room Air Room Air Room Air Oxygen Flow Rate 0 0 04/19/22 23:00 04/19/22 23:00 04/20/22 03:53 Temperature 98.3 F 98.8 F Pulse Rate [Right Pulse Oximeter] 89 938 H 86 Respiratory Rate 16 16 16 Blood Pressure [Le ft Arm] 112/73 104/72 Pulse Oximetry 93 92 Oxygen Delivery Me thod Room Air Room Air Oxygen Flow Rate 0 04/20/22 07:00 Temperature 98.9 F Pulse Rate [Right Pulse Oximeter] 70 Respiratory Rate 14 Blood Pressure [Le ft Arm] 111/75 Pulse Oximetry 95 Oxygen Delivery Me thod Oxygen Flow Rate Labs/Imaging Labs Labs: No evidence of leukocytosis. CRP remains elevated at 20.2, it is no longer trending up. Hemoglobin stable. Progress Note: A&P Assessment and plan (1) S/P small bowel resection: Problem details: Ileocecectomy for perforated appendicitis Status: Acute Plan The patient is an 81-year-old male who is postop day 3 status post ileocecectomy for perforated appendicitis. Vital signs stable and afebrile overnight. CRP remains elevated, but is no longer trending up and no evidence of WBC. Will continue with IV Zosyn while awaiting return of bowel function. Patient NPO with sips and chips. -continue IV fluids. -sips of water and ice chips for comfort until evidence of return of bowel function -Lovenox and SCDs for DVT prophylaxis -continue IV Zosyn -recheck labs tomorrow. -continue therapy
--- NOTE | 2022-04-20 11:49 | W.PM.CROSSCO ---
Subjective Subjective Date Seen: 04/20/22 Interval history: Jayson was found to be in AFib with RVR during routine VS check with nursing staff this morning. He has no chest pain or dyspnea, not noting any palpitations. Objective Objective Data Details: Patient is laying comfortably in bed, nontoxic in appearance Heart rate reveals irregular rhythm, rate in the 130s Lungs clear to auscultation bilaterally Assessment and Plan Assessment and plan (1) Atrial fibrillation with RVR: Problem comment: - will give IV Metoprolol x1, further medications for rate control pending response - increase dose of Lovenox to 1.5mg/kg daily; transition to Xarelto upon discharge - TTE ordered Status: Acute Plan - per above - reviewed plan of care with Dr. Whitley of General Surgery, patient, and Nevin
[2022-04-20] MEDS: METOPROLOL TARTRATE 1 MG/ML inj 5 MG IVP ×4 (11:51→22:11)
[2022-04-20] MEDS: LACTATED RINGERS 1000 ML 1,000 ML 100 ML IV (11:56)
[2022-04-20] MEDS: LACTATED RINGERS 1000 ML 500 ML IV (12:45)
[2022-04-20] MEDS: 0.9 % SODIUM CHLORIDE 500 ML 500 ML IV (16:07)
[2022-04-20 16:24] LABS: Lactate* 0.9 mmol/L (0.5-1.9)
[2022-04-20] MEDS: ALBUMIN HUMAN 25% 100 ML VIAL IV (16:32)
[2022-04-20 16:51] LABS: Potassium* 4.1 mmol/L (3.6-5.1)
[2022-04-20 16:54] LABS: Magnesium* 2.1 mg/dL (1.5-2.6)
--- NOTE | 2022-04-20 23:06 | CRLHL7_ITS ---
For Patients: As a result of the Cures Act, medical imaging exams and procedure reports are released immediately into your electronic medical record. You may view this report before your referring provider. If you have questions, please contact your health care provider. INDICATION: Fever. TECHNIQUE: Chest 1 views. COMPARISON: None. FINDINGS: Cardiovascular and mediastinum: Heart size and vasculature are normal in caliber and appearance. Lungs and pleural spaces: Low lung volumes. Lungs are clear. No sign of infiltrate or mass. No sign of pleural effusion. No pneumothorax. Bones and soft tissues: No significant findings. IMPRESSION: Low lung volumes without acute cardiopulmonary abnormality. Dictated by Jemal Khoury MD @ 04/20/2022 11:58:26 PM (Electronically Signed)
[2022-04-20 23:41] LABS: Lactate* 1.2 mmol/L (0.5-1.9)
[2022-04-21] VITALS (9 sets, daily range): BP systolic 107–118; BP diastolic 68–77; PULSE 78–131; RESP 20; TEMP 36.8–37.1; O2SAT 92–94
[2022-04-21] MEDS: METOPROLOL TARTRATE 1 MG/ML inj 5 MG IVP ×2 (00:55→06:22)
[2022-04-21] MEDS: HYDROmorphone 0.5 mg/0.5 ml inj IVP ×2 (01:02→08:13)
[2022-04-21] MEDS: LACTATED RINGERS 1000 ML 1,000 ML IV (02:37)
[2022-04-21] MEDS: PIPERACILLIN/TAZOBACTAM 3.375 GM in 0.9 % SODIUM CHLORIDE Mini-bag 100 ML IVPB ×4 (04:40→21:06)
--- NOTE | 2022-04-21 05:02 | PC.NURSE ---
pt had temp of 100, back down to 98.8. IV Abx. Bolus LR given. Pt continues to be tachy. Scheduled metoprolol given along with one time ordered doses. C/o pain to abdomen, given dilaudid declined tramadol and acetaminophen. Pt c/o of difficulty swallowing pills and declined also his metoprolol pill earlier.
[2022-04-21 06:19] LABS: Basophils Percent Auto 0.3 % (0.0-3.0); Eosinophils Percent Auto 3.7 % (0.0-7.0); Hematocrit 36.2 % (37.0-53.0); Hemoglobin* 11.9 gm/dL (13.5-17.5); Immature Granulocytes Pct Auto 0.4 %; Lymphocytes Percent Auto 15.2 % (20-44); Mean Corpuscular HGB Conc 33 gm/dL (32-36); Mean Corpuscular Hemoglobin 30 pg (26-34); Mean Corpuscular Volume 91 fL (80-100); Monocytes Percent Auto 10.4 % (0.0-11.0); Platelet Count* 394 K/uL (140-440); RDW Coefficient of Variation % 13.4 % (11.5-15.5); Red Blood Count 3.97 m/uL (4.30-5.90); White Blood Count* 12.05 K/uL (4.50-11.00)
[2022-04-21] MEDS: LACTATED RINGERS 1000 ML 1,000 ML 100 ML IV ×2 (06:25→13:23)
[2022-04-21 06:26] LABS: Slide Review Reflex No
[2022-04-21 06:33] LABS: Chloride* 111 mmol/L (96-114); Potassium* 3.7 mmol/L (3.6-5.1); Sodium* 142 mmol/L (135-149)
[2022-04-21 06:36] LABS: Creatinine* 1.2 mg/dL (0.5-1.5); Est. Creatinine Clearance* 51.19; Estimated Glomerular Filt Rate 60 ml/min
[2022-04-21 06:37] LABS: Blood Urea Nitrogen* 21 mg/dL (7-30); Calcium* 8.3 mg/dL (8.4-10.6); Carbon Dioxide* 24 mmol/L (20-32); Glucose* 102 mg/dL (60-115)
[2022-04-21 06:54] LABS: C Reactive Protein* 15.8 mg/dL (0.5-1.0)
--- NOTE | 2022-04-21 12:06 | PM.GSPN ---
Subjective Subjective Date Seen: 04/21/22 Interval history: Patient is full of energy this morning and doing well. He states that he slept good overnight. He has been passing gas. He had some clear liquids for breakfast, tolerated this well with no nausea or vomiting. He denies feeling really hungry, but regular food sounds appealing. He does suffer from chronic constipation and frequently uses stool softeners and suppositories at home. He has been walking the halls and working with therapy. His is at the bedside. She spoke with me outside the room and states that earlier today the patient seemed a little bit confused. This was shortly after he received IV pain medicine, but she still feels like he is telling ?stories?. Denies any shortness of breath or chest pain. Exam Narrative: Exam Narrative: General: Alert and oriented, no acute distress Abdomen: Soft, nontender and nondistended. Right lower quadrant with jenna in place. Left side incisions with Steri-Strips. Incisions are clean/dry/intact with no concern for infection. Active bowel sounds. Const: Vital Signs, click to edit/add: Vital Signs - 24 hr 04/20/22 16:17 04/20/22 15:45 04/20/22 15:15 Temperature 98.1 F Pulse Rate 122 H Pulse Rate [Right Pulse Oximeter] 127 H 127 H Respiratory Rate 16 16 Blood Pressure [Le ft Arm] 96/69 Pulse Oximetry 95 Oxygen Delivery Me thod Room Air Oxygen Flow Rate 0 04/20/22 18:00 04/20/22 20:04 04/21/22 00:58 Temperature 98.1 F 100 F H 98.2 F Pulse Rate Pulse Rate [Right Pulse Oximeter] 114 H 123 H 123 H Respiratory Rate 16 18 20 Blood Pressure [Le ft Arm] 118/79 98/88 107/72 Pulse Oximetry 94 92 94 Oxygen Delivery Me thod Room Air Room Air Room Air Oxygen Flow Rate 0 04/21/22 01:14 04/21/22 03:42 04/21/22 03:42 Temperature 98.8 F Pulse Rate 131 H 113 H Pulse Rate [Right Pulse Oximeter] 112 H Respiratory Rate 20 Blood Pressure [Le ft Arm] 116/77 Pulse Oximetry 92 Oxygen Delivery Me thod Room Air Oxygen Flow Rate 04/21/22 07:18 04/21/22 07:30 04/21/22 09:08 Temperature 98.7 F Pulse Rate 109 H 79 Pulse Rate [Right Pulse Oximeter] 114 H Respiratory Rate 20 Blood Pressure [Le ft Arm] 110/73 Pulse Oximetry 93 Oxygen Delivery Me thod Room Air Oxygen Flow Rate 0 Labs/Imaging Labs Labs: WBC has slightly increased at 12 this morning. CRP continues to down trend (20-->15). Hemoglobin remains stable. Imaging Imaging: Chest x-ray with no acute findings. Progress Note: A&P Assessment and plan (1) S/P small bowel resection: Problem details: Ileocecectomy for perforated appendicitis Status: Acute Plan The patient is an 81-year-old male who is postop day 4 ileocecectomy for perforated appendicitis. Vital signs stable, he did have a low-grade fever last night (100.1). He had a chest x-ray at that time, which was within normal limits and a 1 time dose of IV vancomycin by the hospitalist. He has been afebrile this morning and his rhythm converted back into normal sinus rhythm. His white blood cell count has slightly increased (10--12), but CRP is down trending (20--15). His exam this morning is benign with him reporting improvement in his abdominal pain. He has also started to pass gas and is tolerating clear liquids. Hospitalist continues to follow for atrial fibrillation management. They are working up his confusion with a cognitive exam scheduled for tomorrow. This could be associated with his medications. Patient is at risk for postoperative abscess/infection, given the amount of contamination noted intraoperatively. No concern for anastomotic leak. No evidence of pneumonia on chest x-ray. UA has been ordered and is pending. Low concern for DVT or PE. At this time we will continue with IV Zosyn. -will advance to low fiber diet -stool softeners, suppository this afternoon -Lovenox and SCDs for DVT prophylaxis -continue IV Zosyn -recheck labs tomorrow. -trend fever and WBC, CRP curves -continue therapy
--- NOTE | 2022-04-21 12:17 | PM.IMPN1 ---
Progress Note: A&P Assessment and plan (1) Atrial fibrillation with RVR: Problem details: - will give IV Metoprolol x1, further medications for rate control pending response - increase dose of Lovenox to 1.5mg/kg daily; transition to Xarelto upon discharge - TTE unremarkable - now converted to normal sinus rhythm. Since atrial fibrillation lasted less than 48 hours, stop metoprolol and anticoagulation. Continue to monitor on telemetry in case of recurrence. I suspect this happen secondary to fluid shifting. Status: Resolved (2) Urinary retention: Status: Resolved (3) S/P small bowel resection: Problem details: Ileocecectomy for perforated appendicitis Status: Acute (4) [place] (hard of hearing): Problem details: Wears hearing aids Status: Chronic (5) 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: Problem details: saw neurology in 2014; sent to PT. c/o of cold feet and left foot drop. Good for PT/OT to know as we head into postop recovery and mobility Status: Chronic (6) Acute appendicitis: Status: Acute (7) Dysphagia: Problem details: This has been going on since childhood and has not changed. He recently get new dentures. He is deciding if he would like an outpatient speech therapy consult to help him find foods that are easier for him to eat. Status: Chronic Plan Change enoxaparin to low-dose nightly dosing for VTE prophylaxis. White count trended back upward today, CRP trending downward. I have reviewed yesterday's chest x-ray and it is unremarkable. He has no symptoms at present that would be concerning for infection. He is currently on Zosyn and got a dose of vancomycin last night. At this time I am not finding a reason to continue vancomycin. Obtain UA UC. Recheck white count and CRP tomorrow. Monitor symptoms. Time Spent With Patient Total time spent: Today I spent 35 minutes rounding on the patient. Greater than 50% included discussing care with the patient and , team, Dr. Whitley, reviewing data, updating and managing the care plan. Subjective Time Seen by Provider: 09:53 Date Seen: 04/21/22 Interval history: This morning Jayson converted back into NSR. Since then, he has been feeling a lot better. Jayson's , Nevin, was in the room with him this morning. He has passed gas 3 times this morning already. Jayson told me that he has a long history of dysphagia. He had two tonsil procedures as a child because of it. He recently got new dentures. He described sometimes pureeing his food, but mostly just chewing very well. We discussed outpatient speech therapy evaluation. He wanted to think about this first. Exam Narrative: Exam Narrative: General: No acute distress. Awake, alert, oriented. No pallor. No jaundice. Oropharynx: Clear. Mucous membranes moist. Cardiovascular: Regular rate and rhythm. No murmurs, gallops, or rubs. Respiratory: Clear to auscultation bilaterally. No wheezes or crackles. Abdomen: Bowel sounds hypoactive. Soft, nondistended, nontender. Surgical wound is clean, dry, and intact. Extremities: No pedal edema. Const: Vital Signs, click to edit/add: Vital Signs - 24 hr 04/20/22 16:17 04/20/22 15:45 04/20/22 15:15 Temperature 98.1 F Pulse Rate 122 H Pulse Rate [Right Pulse Oximeter] 127 H 127 H Respiratory Rate 16 16 Blood Pressure [Le ft Arm] 96/69 Pulse Oximetry 95 Oxygen Delivery Me thod Room Air Oxygen Flow Rate 0 04/20/22 18:00 04/20/22 20:04 04/21/22 00:58 Temperature 98.1 F 100 F H 98.2 F Pulse Rate Pulse Rate [Right Pulse Oximeter] 114 H 123 H 123 H Respiratory Rate 16 18 20 Blood Pressure [Le ft Arm] 118/79 98/88 107/72 Pulse Oximetry 94 92 94 Oxygen Delivery Me thod Room Air Room Air Room Air Oxygen Flow Rate 0 04/21/22 01:14 04/21/22 03:42 04/21/22 03:42 Temperature 98.8 F Pulse Rate 131 H 113 H Pulse Rate [Right Pulse Oximeter] 112 H Respiratory Rate 20 Blood Pressure [Le ft Arm] 116/77 Pulse Oximetry 92 Oxygen Delivery Me thod Room Air Oxygen Flow Rate 04/21/22 07:18 04/21/22 07:30 04/21/22 09:08 Temperature 98.7 F Pulse Rate 109 H 79 Pulse Rate [Right Pulse Oximeter] 114 H Respiratory Rate 20 Blood Pressure [Le ft Arm] 110/73 Pulse Oximetry 93 Oxygen Delivery Me thod Room Air Oxygen Flow Rate 0 Documenting provider has reviewed patient's vital signs: yes Labs Labs: Laboratory Results - last 24 hr 04/20/22 04/20/22 04/20/22 16:17 16:17 23:25 WBC RBC Hgb Hct MCV MCH MCHC RDW Coeff of [place]acio Plt Count Neut % (Auto) Lymph % (Auto) [place] % (Auto) Eos % (Auto) Baso % (Auto) Neut # (Auto) Lymph # (Auto) [place] # (Auto) Eos # (Auto) Baso # (Auto) Sodium Potassium 4.1 Chloride Carbon Dioxide BUN Creatinine Estimated Creat Clear Estimated GFR Glucose Lactate 0.9 1.2 Calcium Magnesium 2.1 C-Reactive Protein 04/21/22 04/21/22 05:45 05:45 WBC 12.05 H RBC 3.97 L Hgb 11.9 L Hct 36.2 L MCV 91 MCH 30 MCHC 33 RDW Coeff of [place]acio 13.4 Plt Count 394 Neut % (Auto) 70.0 Lymph % (Auto) 15.2 L [place] % (Auto) 10.4 Eos % (Auto) 3.7 Baso % (Auto) 0.3 Neut # (Auto) 8.40 H Lymph # (Auto) 1.80 [place] # (Auto) 1.30 H Eos # (Auto) 0.40 Baso # (Auto) 0.00 Sodium 142 Potassium 3.7 Chloride 111 Carbon Dioxide 24 BUN 21 Creatinine 1.2 Estimated Creat Clear 51.19 Estimated GFR 60 Glucose 102 Lactate Calcium 8.3 L Magnesium C-Reactive Protein 15.8 H Imaging Echo: Attestation: I have reviewed the pertinent imaging results. Radiologist's impression: 04/20/2022 Technically limited exam. Normal LV size, not well visualized wall thickness. EF 65-70%. RV is not well visualized. No significant valve disease detected. IVC is not well visualized. ECG Attestation: I personally reviewed and interpreted this ECG as follows: (04/21/2022 12:24 p.m.) Interpretation: Normal sinus rhythm with sinus arrhythmia. Heart rate [address] and T-wave abnormality, consider inferior lateral ischemia.
[2022-04-21] MEDS: TRAMADOL HCL 50 MG TABLET PO ×2 (12:53→21:07)
[2022-04-21] MEDS: ONDANSETRON 2 MG/ML inj IVP (13:52)
--- NOTE | 2022-04-21 15:54 | PC.NURSE ---
PATIENT TELE AT BEGINNING OF SHIFT SHOWING AFIB WITH RVR. PATIENT NOTED TO HAVE CONVERTED MID-MORNING CONFIRMED BY EKG. MD UPDATED. PATIENT REPORTING HALLUCINATIONS THAT IT WAS RAINING FROM THE CEILING. PATIENT AGITATED AND TIMES AND NEEDING REORIENTATION. PATIENT TOLERATED CLEAR LIQUIDS FOR BREAKFAST. PATIENT ATTEMPTED TO EAT FISH FOR LUNCH BUT HAD INCREASE IN PAIN AND REPORTED NAUSEA. ZOFRAN ADMINISTERED AND DR. MUNSON UPDATED. PATIENT STATED HE WAS STILL PASSING GAS AND BURPING FREQUENTLY. PAIN IMPROVED WITH TRAMADOL. PATIENT DOES NEED MEDS CRUSHED IN APPLESAUCE. PATIENT REPORTS LONGSTANDING ISSUES WITH SWALLOWING PILLS AND SOME FOODS.
[2022-04-21] MEDS: ENOXAPARIN 40 MG/0.4 ML INJ SUBCUT (21:06)
--- NOTE | 2022-04-21 23:22 | PC.NURSE ---
Patient has positive bowel sounds in all 4 quadrants. Reports passing gas. No bowel movement. Abdomen incision is clean dry and open to air. Rates pain at a 4/10 - Pt given 50mg tramadol for this. Up in the halls for walk - tolerated well.
[2022-04-22] VITALS (10 sets, daily range): BP systolic 127–146; BP diastolic 67–87; PULSE 73–85; RESP 16–20; TEMP 36.7–37.4; O2SAT 79–95
[2022-04-22] MEDS: PIPERACILLIN/TAZOBACTAM 3.375 GM in 0.9 % SODIUM CHLORIDE Mini-bag 100 ML IVPB ×2 (02:41→08:15)
[2022-04-22] MEDS: SENNOSIDES/DOCUSATE TABLET 1 TAB PO ×2 (03:54→21:26)
--- NOTE | 2022-04-22 04:36 | PC.NURSE ---
Pt c/o pain to abdomen but decline prn. C/o constipation and given scheduled stool softener. No BM yet. BSC available in room. VSS. IV Abx given. Afebrile. Tele - normal sinus rhythm.
[2022-04-22 04:50] LABS: Appearance Urine Clear (Clear); Bilirubin Urine 1+ (Negative); Blood Urine Negative (Negative); Color Urine Amber (Yellow); Glucose Urine Negative (Negative); Ketones Urine 1+ (Negative); Leukocyte Esterase Urine Negative (Negative); Nitrite Urine Negative (Negative); Protein Urine 1+ (Negative); pH Urine 5.5 (5.0-8.5)
[2022-04-22 05:05] LABS: Bacteria Urine Few; Fine Granular Casts Urine Few; RBC Urine 0-2 (0-2); Squamous Epithelial Cell Urine Few (None-Few)
[2022-04-22 06:51] LABS: Basophils Absolute Auto 0.02 K/uL (0.00-0.30); Basophils Percent Auto 0.2 % (0.0-3.0); Eosinophils Percent Auto 7.1 % (0.0-7.0); Hematocrit 30.3 % (37.0-53.0); Hemoglobin* 10.3 gm/dL (13.5-17.5); Immature Granulocytes Abs Auto 0.07 K/uL (0.00-0.30); Immature Granulocytes Pct Auto 0.8 %; Lymphocytes Percent Auto 16.6 % (20-44); Mean Corpuscular HGB Conc 34 gm/dL (32-36); Mean Corpuscular Hemoglobin 31 pg (26-34); Mean Corpuscular Volume 91 fL (80-100); Monocytes Percent Auto 10.6 % (0.0-11.0); Neutrophils Absolute Auto 5.68 K/uL (1.7-7.0); Neutrophils Percent Auto 64.7 % (42.0-72.0); Platelet Count* 322 K/uL (140-440); RDW Coefficient of Variation % 13.4 % (11.5-15.5); Red Blood Count 3.33 m/uL (4.30-5.90); White Blood Count* 8.78 K/uL (4.50-11.00)
[2022-04-22 06:54] LABS: Chloride* 112 mmol/L (96-114); Potassium* 3.8 mmol/L (3.6-5.1); Sodium* 141 mmol/L (135-149)
[2022-04-22 06:56] LABS: Slide Review Reflex No
[2022-04-22 06:57] LABS: Carbon Dioxide* 27 mmol/L (20-32); Creatinine* 1.1 mg/dL (0.5-1.5); Est. Creatinine Clearance* 55.85; Estimated Glomerular Filt Rate 67 ml/min
[2022-04-22 06:58] LABS: Blood Urea Nitrogen* 20 mg/dL (7-30); Calcium* 7.9 mg/dL (8.4-10.6); Glucose* 96 mg/dL (60-115)
[2022-04-22 07:16] LABS: C Reactive Protein* 11.5 mg/dL (0.5-1.0)
--- NOTE | 2022-04-22 08:28 | P.GSPN_ITS ---
Subjective Subjective Date Seen: 04/22/22 Interval history: Patient is doing well this morning. He was able to sleep last night. He denies any abdominal pain. Yesterday around lunch she had a little bit of nausea when he tried to eat some fish. For dinner he tolerated some full liquids. Still does not have much of an appetite. Continues to pass gas, no bowel movement yet. Has been ambulating the hallway and working with therapies. Exam Narrative: Exam Narrative: General: Alert and oriented, no acute distress. Lying comfortably in bed Abdomen: Soft, appropriately tender over incision sites. Right lower quadrant with jenna in place clean/dry/intact. Left side of the abdomen with Steri- Strips in place. No concern for infection. Const: Vital Signs, click to edit/add: Vital Signs - 24 hr 04/21/22 09:08 04/21/22 13:45 04/21/22 15:00 Temperature 98.7 F Pulse Rate 79 79 Pulse Rate [Right Pulse Oximeter] 80 Respiratory Rate 20 Blood Pressure [Le ft Arm] 118/68 Pulse Oximetry 94 Oxygen Delivery Me thod Room Air Oxygen Flow Rate 0 04/21/22 15:00 04/21/22 15:00 04/21/22 19:00 Temperature 98.5 F 98.7 F Pulse Rate Pulse Rate [Right Pulse Oximeter] 80 78 79 Respiratory Rate 20 20 20 Blood Pressure [Le ft Arm] 108/73 118/74 Pulse Oximetry 94 94 Oxygen Delivery Me thod Room Air Room Air Oxygen Flow Rate 0 0 04/22/22 00:12 04/22/22 01:52 04/22/22 03:46 Temperature 98.1 F 98.5 F Pulse Rate 81 Pulse Rate [Right Pulse Oximeter] 77 77 Respiratory Rate 20 20 Blood Pressure [Le ft Arm] 135/77 139/85 Pulse Oximetry 94 95 Oxygen Delivery Me thod Room Air Room Air Oxygen Flow Rate 04/22/22 07:50 Temperature Pulse Rate 73 Pulse Rate [Right Pulse Oximeter] Respiratory Rate Blood Pressure [Le ft Arm] Pulse Oximetry Oxygen Delivery Me thod Oxygen Flow Rate Labs/Imaging Labs Labs: WBC has normalized, CRP continues to trend down (15--11) Imaging Imaging: No new imaging Progress Note: A&P Assessment and plan (1) S/P small bowel resection: Problem details: Ileocecectomy for perforated appendicitis Status: Acute Plan The patient is an 81-year-old male who is postop day 5 ileocecectomy for perforated appendicitis. Vital signs stable and afebrile overnight. He has had normalization of his leukocytosis and CRP continues to trend down. He continues to pass gas and is tolerating full liquids, still waiting for a bowel movement. Patient does suffer from constipation chronically. Will transition to oral antibiotic today. -continue full liquids until patient has a bowel movement -stool softeners, suppository, will add some milk of magnesia -Lovenox and SCDs for DVT prophylaxis -oral Augmentin to start today -continue therapy
[2022-04-22] MEDS: LACTATED RINGERS 1000 ML 1,000 ML 100 ML IV ×2 (11:38→21:28)
--- NOTE | 2022-04-22 14:53 | PM.IMPN1 ---
Progress Note: A&P Assessment and plan (1) Atrial fibrillation with RVR: Problem details: - will give IV Metoprolol x1, further medications for rate control pending response - increase dose of Lovenox to 1.5mg/kg daily; transition to Xarelto upon discharge - TTE unremarkable - now converted to normal sinus rhythm. Since atrial fibrillation lasted less than 48 hours, stop metoprolol and anticoagulation. Continue to monitor on telemetry in case of recurrence. I suspect this happen secondary to fluid shifting. Status: Resolved (2) Urinary retention: Status: Resolved (3) Acute appendicitis: Status: Acute (4) S/P small bowel resection: Problem details: Ileocecectomy for perforated appendicitis Status: Acute (5) [place] (hard of hearing): Problem details: Wears hearing aids Status: Chronic (6) 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: Problem details: saw neurology in 2014; sent to PT. c/o of cold feet and left foot drop. Status: Chronic (7) Dysphagia: Problem details: Outpatient speech referral if patient desires. Status: Chronic Plan Low-dose nightly enoxaparin for VTE prophylaxis. White count has normalized, UA fairly unremarkable, blood cultures x2 from 04/20/2022 are negative. CRP is trending downward. Subjective Time Seen by Provider: 10:20 Date Seen: 04/22/22 Interval history: Jayson is feeling better today. He continues to have flatus, no bowel movement yet. He has remained in normal sinus rhythm. Exam Narrative: Exam Narrative: General:? No acute distress.? Awake, alert, oriented.? No pallor.? No jaundice. Oropharynx:? Clear.? Mucous membranes moist. Cardiovascular:? Regular rate and rhythm.? No murmurs, gallops, or rubs. Respiratory:? Clear to auscultation bilaterally.? No wheezes or crackles. Abdomen:? Bowel sounds active.? Soft, nondistended, nontender.? Surgical wound is clean, dry, and intact. Const: Vital Signs, click to edit/add: Vital Signs - 24 hr 04/21/22 15:00 04/21/22 15:00 04/21/22 15:00 Temperature 98.5 F Pulse Rate 79 Pulse Rate [Right Pulse Oximeter] 80 78 Respiratory Rate 20 20 Blood Pressure [Le ft Arm] 108/73 Pulse Oximetry 94 Oxygen Delivery Me thod Room Air Oxygen Flow Rate 0 04/21/22 19:00 04/22/22 00:12 04/22/22 01:52 Temperature 98.7 F 98.1 F Pulse Rate 81 Pulse Rate [Right Pulse Oximeter] 79 77 Respiratory Rate 20 20 Blood Pressure [Le ft Arm] 118/74 135/77 Pulse Oximetry 94 94 Oxygen Delivery Me thod Room Air Room Air Oxygen Flow Rate 0 04/22/22 03:46 04/22/22 07:50 04/22/22 07:00 Temperature 98.5 F 98.3 F Pulse Rate 73 Pulse Rate [Right Pulse Oximeter] 77 76 Respiratory Rate 20 16 Blood Pressure [Le ft Arm] 139/85 133/83 Pulse Oximetry 95 94 Oxygen Delivery Nm thod Room Air Room Air Oxygen Flow Rate 04/22/22 07:00 04/22/22 11:00 Temperature 98.5 F Pulse Rate Pulse Rate [Right Pulse Oximeter] 77 77 Respiratory Rate 16 Blood Pressure [Le ft Arm] 135/86 Pulse Oximetry 92 Oxygen Delivery Nm thod Room Air Oxygen Flow Rate 0 Labs Labs: Laboratory Results - last 24 hr 04/22/22 04/22/22 04/22/22 04:04 05:45 05:45 WBC 8.78 RBC 3.33 L Hgb 10.3 L Hct 30.3 L MCV 91 MCH 31 MCHC 34 RDW Coeff of [place]acio 13.4 Plt Count 322 Neut % (Auto) 64.7 Lymph % (Auto) 16.6 L [place] % (Auto) 10.6 Eos % (Auto) 7.1 H Baso % (Auto) 0.2 Neut # (Auto) 5.68 Lymph # (Auto) 1.50 [place] # (Auto) 0.90 Eos # (Auto) 0.60 H Baso # (Auto) 0.02 Sodium 141 Potassium 3.8 Chloride 112 Carbon Dioxide 27 BUN 20 Creatinine 1.1 Estimated Creat Clear 55.85 Estimated GFR 67 Glucose 96 Calcium 7.9 L C-Reactive Protein 11.5 H Urine Color [place] A Urine Appearance Clear Urine pH 5.5 Ur Specific [place] 1.020 Urine Protein 1+ A Urine Glucose (UA) Negative Urine Ketones 1+ A Urine Blood Negative Urine Nitrite Negative Urine Bilirubin 1+ A Urine Urobilinogen 1.0 Ur Leukocyte Esterase Negative Urine RBC 0-2 Urine WBC 2-5 Ur Squamous Epith Cells Few Urine Bacteria Few A Fine Granular Casts Few A
[2022-04-22] MEDS: AMOXICILLIN/CLAVULANATE 500 mg/125 mg TABLET PO (17:47)
[2022-04-22] MEDS: ENOXAPARIN 40 MG/0.4 ML INJ SUBCUT (21:27)
[2022-04-23] VITALS (10 sets, daily range): BP systolic 104–136; BP diastolic 72–88; PULSE 72–86; RESP 16–20; TEMP 36.4–36.9; O2SAT 95–97
--- NOTE | 2022-04-23 06:18 | PC.NURSE ---
pt continues to c/o not having BM. Declined stool softener prn when suggested because he stated that his stomach couldn't take another crushed medication. Pt meds are crushed per request of patient because of difficulty swallowing pills since childhood. C/o pain to abdomen. Kpad effective with alleviating pain. VSS.
[2022-04-23] MEDS: SENNOSIDES/DOCUSATE TABLET 1 TAB PO ×2 (09:01→20:38)
[2022-04-23] MEDS: ACETAMINOPHEN 325 MG TABLET 650 MG PO (09:01)
[2022-04-23] MEDS: AMOXICILLIN/CLAVULANATE 500 mg/125 mg TABLET PO ×2 (09:02→18:30)
[2022-04-23] MEDS: LACTATED RINGERS 1000 ML 1,000 ML 100 ML IV (09:02)
--- NOTE | 2022-04-23 10:07 | P.GSPN_ITS ---
Subjective Subjective Date Seen: 04/23/22 Interval history: Patient is doing great this morning. He continues to pass a lot of gas but still no bowel movement. He is feeling hungry and wants to try regular food today, he denies any nausea. No fevers overnight. Exam Narrative: Exam Narrative: General: Alert and oriented, no acute distress. Lying comfortably in bed. Abdomen: Soft, nontender, mild distention. Positive bowel sounds. Right lower quadrant with jenna in place, left-sided incisions with Steri-Strips. No concern for infection. Const: Vital Signs, click to edit/add: Vital Signs - 24 hr 04/22/22 11:00 04/22/22 18:00 04/22/22 17:00 Temperature 98.5 F Pulse Rate 74 Pulse Rate [Right Pulse Oximeter] 77 79 Respiratory Rate 16 16 Blood Pressure [Le ft Arm] 135/86 Pulse Oximetry 92 Oxygen Delivery Me thod Room Air Oxygen Flow Rate 0 04/22/22 17:00 04/22/22 19:50 04/22/22 23:51 Temperature 98.6 F 99.3 F 98.1 F Pulse Rate Pulse Rate [Right Pulse Oximeter] 79 85 79 Respiratory Rate 16 20 18 Blood Pressure [Le ft Arm] 127/67 146/78 H 146/87 H Pulse Oximetry 94 94 79 L Oxygen Delivery Me thod Room Air Room Air Room Air Oxygen Flow Rate 0 04/23/22 01:57 04/23/22 03:08 04/23/22 08:06 Temperature 98.2 F Pulse Rate 76 72 Pulse Rate [Right Pulse Oximeter] 77 Respiratory Rate 20 Blood Pressure [Le ft Arm] 134/85 Pulse Oximetry 96 Oxygen Delivery Me thod Room Air Oxygen Flow Rate Progress Note: A&P Assessment and plan (1) S/P small bowel resection: Problem details: Ileocecectomy for perforated appendicitis Status: Acute Plan The patient is an 81-year-old male who is postop day 6 ileocecectomy for perfor ated appendicitis. Vital signs stable and afebrile overnight. Meds have been transition to oral. Will advance diet to regular this morning and try suppository. Anticipate discharge once patient has a bowel movement.
[2022-04-23] MEDS: ONDANSETRON 2 MG/ML inj IVP (10:32)
[2022-04-23] MEDS: bisacodyL 10 MG SUPP.RECT PR (12:12)
--- NOTE | 2022-04-23 14:06 | PC.NURSE ---
PATIENT PLEASANT AND COOPERATIVE, UP 1A WITH WALKER AND BELT TOLERATING WELL, ENCOURAGING PATIENT TO WALK MORE EACH SHIFT, PILLS CRUSHED AND GIVEN WITH SOME YOGURT PATIENT TOLERATED FAIRLY, THOSE MEDICATION TASTE GROSS, DO I HAVE TO TAKE MORE, SALINE LOCKED, TOLERATED REGULAR DIET, EXPRESSED SOME NAUSEA AFTER BREAKFAST BUT PATIENT FELT THE NAUSEA WAS MORE RELATED TO THE PILLS THAN BREAKFAST, LAP SITES INTACT OPEN TO AIR, SURGICAL SITE TO RIGHT LOWER ABDOMEN INTACT WITH CHRIS, X1 STAPLE REMOVED PER DR. MUNSON THE STAPLE WAS ONLY PARTIALLY ATTACHED TO PATIENT, TELE SHOWING SINUS ARRHYTHMIA, PRN SUPPOSITORY GIVEN PER MD NO RESULTS AT THIS TIME, RATING PAIN 3-5/10 IN ABDOMEN BEING MANAGED WITH PRN TYLENOL DECLINING NEED FOR ANY STRONGER PAIN MEDICATION.
--- NOTE | 2022-04-23 16:35 | PM.IMPN1 ---
Progress Note: A&P Assessment and plan (1) S/P small bowel resection: Problem details: Ileocecectomy for perforated appendicitis Status: Acute (2) Atrial fibrillation with RVR: Problem details: -resolved. - TTE unremarkable - now converted to normal sinus rhythm. Since atrial fibrillation lasted less than 48 hours, stop metoprolol and anticoagulation. Continue to monitor on telemetry in case of recurrence. I suspect this happen secondary to fluid shifting. 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 c/o of cold feet and left foot drop. Status: Chronic (5) Dysphagia: Problem details: Outpatient speech referral if patient desires. Status: Chronic Subjective Date Seen: 04/23/22 Interval history: Daily Progress Note - Hospital Medicine Day #:7 POST OP Day #6 Type of Procedure: Laparoscopic appendectomy converted to open ileocecectomy (04/17/22 MUNSON Direct from ED to OR) CC: Acute perforated complicated appendicitis, history of AFib RVR, now in sinus OVERNIGHT UPDATES FROM STAFF & MED, LAB, IMAGING UPDATES Improving. Passing gas and and as of this afternoon stool. His pain is well controlled. He has chronic issues with swallowing and dysphagia. This is not acute. 121/82. Afebrile. Pulse 76. Respiratory rate 16. Pulse ox 95% on room air. Postop hemoglobin is now 10.3, on presentation it was 13.1 Leukocytosis has resolved. CRP is down trending Echo on 04/20/2022 was normal. Objective: Vitals: see above Lungs: Clear. Cardiac: S1S2. Abdomen: Continues to improve in his less tender. Disposition/Potential discharge - Likely to return to previous living situation. Total time is 35 minutes with greater than 50% spent in counseling and coordination of care. Exam Const: Vital Signs, click to edit/add: Vital Signs - 24 hr 04/22/22 18:00 04/22/22 17:00 04/22/22 17:00 Temperature 98.6 F Pulse Rate 74 Pulse Rate [Right Pulse Oximeter] 79 79 Respiratory Rate 16 16 Blood Pressure [Le ft Arm] 127/67 Pulse Oximetry 94 Oxygen Delivery Me thod Room Air Oxygen Flow Rate 0 04/22/22 19:50 04/22/22 23:51 04/23/22 01:57 Temperature 99.3 F 98.1 F Pulse Rate 76 Pulse Rate [Right Pulse Oximeter] 85 79 Respiratory Rate 20 18 Blood Pressure [Le ft Arm] 146/78 H 146/87 H Pulse Oximetry 94 79 L Oxygen Delivery Me thod Room Air Room Air Oxygen Flow Rate 04/23/22 03:08 04/23/22 08:06 04/23/22 07:00 Temperature 98.2 F 98.2 F Pulse Rate 72 Pulse Rate [Right Pulse Oximeter] 77 75 Respiratory Rate 20 18 Blood Pressure [Le ft Arm] 134/85 128/88 Pulse Oximetry 96 95 Oxygen Delivery Me thod Room Air Room Air Oxygen Flow Rate 0 04/23/22 11:00 Temperature 97.6 F Pulse Rate Pulse Rate [Right Pulse Oximeter] 76 Respiratory Rate 16 Blood Pressure [Le ft Arm] 121/82 Pulse Oximetry 95 Oxygen Delivery Me thod Room Air Oxygen Flow Rate 0
[2022-04-23] MEDS: MAGNESIUM HYDROXIDE 30 ML ORAL.SUSP PO (18:30)
[2022-04-23] MEDS: ENOXAPARIN 40 MG/0.4 ML INJ SUBCUT (20:38)
--- NOTE | 2022-04-23 22:24 | PC.NURSE ---
End of Shift: Patient pleasant and cooperative. Afebrile. Lap sites with steri-strips and horizontal incision with jenna to abdomen C/D/I. Bowel sounds active and 2 small BMs this shift. Tolerating regular diet with no nausea. Up to bathroom and chair with SBA, walker and gait belt. Walked in hallway 1. Rating pain in abdomen 2-3/10 and denies need for PRN pain medication.
[2022-04-24 03:00] VITALS: BP 120/84; PULSE 74; RESP 18; TEMP 36.9; O2SAT 93
--- NOTE | 2022-04-24 05:16 | PC.NURSE ---
PT PLEASANT AND COOPERATIVE WITH CARES. VSS ON RA; AFEBRILE. PT DENIES CP, SOB, N/V. 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 PT PASSING FLATUS. PLAN TO D/C HOME WITH 04/24. LSCTA. PT USING URINAL OVERNIGHT.
[2022-04-24] MEDS: METOPROLOL TARTRATE 1 MG/ML inj 5 MG IVP (08:01)
[2022-04-24] MEDS: AMOXICILLIN/CLAVULANATE 500 mg/125 mg TABLET PO (08:01)
[2022-04-24 08:20] VITALS: BP 129/83; PULSE 116; PULSE 79; RESP 16; TEMP 36.7; O2SAT 94
[2022-04-24 08:25] VITALS: PULSE 116
[2022-04-24] MEDS: SENNOSIDES/DOCUSATE TABLET 1 TAB PO (08:45)
--- NOTE | 2022-04-24 08:45 | P.DS_ITS ---
DS: Providers Provider Date Seen: 04/24/22 Date of admission: 04/17/22 20:26 Primary care physician: Lisa Marcus MD Admitting Clinician: Nyasia Whitley MD Consults: 04/17/22 20:26 Consult to Physician [CONS] Routine Comment: Consulting Provider: Letty Sim Has provider been notified: Yes 04/18/22 13:51 Consult to Occupational Therapy [CONS] Routine Comment: Reason(s) for OT Consult:: ADLs Prior to Discharge Any Restrictions?:: No Restrictions Consult to Physical Therapy [CONS] Routine Comment: Reason(s) for PT Consult:: Balance Assessment Any Restrictions?:: No Restrictions 04/21/22 10:31 Consult to Occupational Therapy [CONS] Routine Comment: Reason(s) for OT Consult:: Evaluate and Treat Any Restrictions?:: Unknown Comment: moca Attending Physician on discharge: Nyasia Whitley MD DS: Summary Hospital Course Hospital Course: Patient presented the emergency department with clinical workup consistent with acute appendicitis. He was taken to the operating room, where there was evidence of perforation and necrosis at the appendix base. The procedure was converted from laparoscopic to open. Due to the surrounding amount of edema and inflammation and ileocecectomy was performed. Postoperatively the patient did have slow to return bowel function. He does suffer from constipation chronically. At the time of discharge he was passing gas, having bowel movements and tolerating a regular diet. He was continued on antibiotics, to complete a 10 day course. During his hospital stay he had new onset atrial fibrillation. This was likely secondary to fluid shifts postoperatively. He spontaneously converted back to normal rhythm. The decision was made by the hospitalist to not start him anticoagulation. An echo was obtained and stable. At the time of discharge patient was tolerating a regular diet, having bowel movements, pain was well controlled on oral medication and he was ambulating independently. Time Spent with Patient Time attestation: Total time spent providing and/or coordinating discharge services: Exam Narrative: Exam Narrative: General: Alert and oriented, no acute distress Respiratory: Equal breath rise bilaterally, maintained on room air CV: Regular rhythm rate, well perfused Abdomen: Soft, nontender and nondistended. Right lower quadrant jenna removed with Steri-Strips replaced. Left-sided incisions with Steri-Strips in place. No concern for infection. Const: Vital Signs, click to edit/add: Vital Signs - 24 hr 04/23/22 11:00 04/23/22 15:00 04/23/22 15:00 Temperature 97.6 F 98.1 F Pulse Rate Pulse Rate [Right Pulse Oximeter] 76 72 72 Respiratory Rate 16 18 18 Blood Pressure [Le ft Arm] 121/82 104/72 Pulse Oximetry 95 95 Oxygen Delivery Me thod Room Air Room Air Oxygen Flow Rate 0 04/23/22 17:00 04/23/22 19:00 04/23/22 23:00 Temperature 98.4 F Pulse Rate 75 Pulse Rate [Right Pulse Oximeter] 76 86 Respiratory Rate 16 20 Blood Pressure [Le ft Arm] 109/79 Pulse Oximetry 97 Oxygen Delivery Me thod Room Air Oxygen Flow Rate 04/23/22 23:00 04/23/22 23:35 04/24/22 03:00 Temperature 98.4 F Pulse Rate 75 Pulse Rate [Right Pulse Oximeter] 76 74 Respiratory Rate 20 18 Blood Pressure [Le ft Arm] 136/82 120/84 Pulse Oximetry 95 93 Oxygen Delivery Me thod Room Air Room Air Oxygen Flow Rate 04/24/22 08:20 04/24/22 08:20 04/24/22 08:25 Temperature 98.1 F Pulse Rate 116 H Pulse Rate [Right Pulse Oximeter] 116 H 79 Respiratory Rate 16 Blood Pressure [Le ft Arm] 129/83 Pulse Oximetry 94 Oxygen Delivery Me thod Room Air Oxygen Flow Rate DS: Data Data Completed and Pending Labs on day of discharge: Preliminary micro results at discharge 04/20/22 23:30 Blood Culture - Preliminary Blood NO GROWTH AFTER 72 HOURS 04/20/22 23:25 Blood Culture - Preliminary Blood NO GROWTH AFTER 72 HOURS Discharge Plan Discharge Disposition: Home, Self-Care Date of Admission: 04/17/22 20:26 Attending Provider on Discharge: Nyasia Whitley Consulting Providers: Letty Sim Primary Care Provider: Lisa Marcus Condition: Improved Anticipated Discharge Date/Time: 04/23/22 10:10 Discharge Medications: New sennosides-docusate sodium [Stool Softener-Laxative] 8.6-50 mg Tablet 1 tab PO BID Qty: 90 0RF tramadol 50 mg Tablet 50 - 100 mg PO Q6H PRN (Reason: Pain) Qty: 10 0RF amoxicillin-pot clavulanate [Augmentin] 500-125 mg Tablet 1 tab PO BIDWM Qty: 6 0RF Discharge Orders: Discharge Order (Routine); Ordered 04/24/22 Ordered By: Nyasia Whitley Consulting provider completed their portion of the discharge: No Patient Education: Post-Operative Instructions: Appendectomy Additional Instructions: Activity as tolerated. Avoid strenuous activity. No lifting greater than 20 lb for 6 weeks. You can shower. Do not soak in a bath or swim until your incisions are fully healed. You have jenna in place. These need to be removed 10 days after the procedure. A nursing visit has been scheduled for this. You were prescribed a narcotic pain medication. In addition you may supplement with Tylenol and/or ibuprofen. Be sure to not exceed greater than 4 g of Tylenol in a 24 hour period. While on narcotic pain medicine please take stool softeners. A prescription of stool softeners has been sent to the pharmacy. Stop if having greater than 2 stools per day. Activity Level: No strenuous activity Discharge Diet: Regular Follow Up Appointments: Nyasia Whitley MD [Staff Physician] - (Nursing appointment for suture removal needed on 04/27/22. visit for 2 weeks post op) Forms: [employer] Info Instructions
[2022-04-24 09:20] VITALS: BP 98/72; PULSE 150
[2022-04-24] MEDS: dilTIAZem 5 MG/ML inj 10 MG IVP (09:22)
[2022-04-24 10:00] VITALS: BP 105/72; PULSE 145
[2022-04-24] MEDS: METOPROLOL TARTRATE 25 MG TABLET PO (10:02)
[2022-04-24] MEDS: APIXABAN 5 MG TABLET 10 MG PO (10:17)
[2022-04-24 13:49] VITALS: BP 117/82; PULSE 76; RESP 18; TEMP 36.6
--- NOTE | 2022-04-24 13:51 | PC.NURSE ---
Addendum entered by Janee Miles RN 04/24/22 13:54: discharge @ 1341 Original Note: Shift Summary: Patient pleasant and cooperative. Up with SBA and walker. HR as high as 150bpm this morning, see MAR for management, HR at time of discharge controlled, rate 76bpm, BP WNL. Surgical site dry and intact with steristrips. IV removed, discharge instructions given, follow ups reviewed. Questions answered as needed. Patient discharged home with @ 1441 via wheelchair.
--- NOTE | 2022-04-24 18:53 | P.IMPN_ITS ---
Progress Note: A&P Assessment and plan (1) S/P small bowel resection: Problem details: Ileocecectomy for perforated appendicitis -converted the pill form of Augmentin to liquid. Status: Acute (2) Atrial fibrillation with RVR: Problem details: Paroxysmal - TTE unremarkable - now converted to normal sinus rhythm. Since this is now considered paroxysmal. I sent him home on a Holter monitor. I also making sure he is anticoagulated with Eliquis 5 mg b.i.d.. I am also sending him home on 12.5 mg of metoprolol b.i.d.. Would like for him to see his PCP within the next week. I have asked the to monitor his heart rate twice a day. She is also instructed on how to use metoprolol p.r.n. for increased heart rate. -I think discharge is still appropriate. I did have him walk up and down the [place] with PT after he had spontaneously converted to sinus. He stayed in sinus. I am hopeful that his paroxysmal AFib will become history once he completely recovered from his appendicitis. Status: Resolved (3) [place] (hard of hearing): Problem details: Wears hearing aids Status: Chronic (4) 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: Problem details: saw neurology in 2014; sent to PT. c/o of cold feet and left foot drop. Status: Chronic (5) Dysphagia: Problem details: Outpatient speech referral if patient desires. Status: Chronic Subjective Date Seen: 04/24/22 Interval history: Daily Progress Note - Hospital Medicine Day #:8 POST OP Day #7 Type of Procedure: Laparoscopic appendectomy converted to open ileocecectomy (04/17/22 [facility] Direct from ED to OR) CC: Acute perforated complicated appendicitis, new diagnosis of AFib RVR, now paroxysmal. OVERNIGHT UPDATES FROM STAFF & MED, LAB, IMAGING UPDATES Patient was set for discharge. Upon ambulation this morning, noted to be in RVR, AFib on the telemetry with a heart rate in the 140s. Patient is completely asymptomatic. Within 2 hours the patient was back in sinus spontaneously. We did use 1 push of 5 mg of metoprolol, 1 push of 10 mg of Cardizem, 1 p.o. dose of 25 mg of metoprolol. I also started him on Eliquis. 121/82. Afebrile. Pulse 76. Respiratory rate 16. Pulse ox 95% on room air. Postop hemoglobin is now 10.3, on presentation it was 13.1 Leukocytosis has resolved. CRP is down trending Echo on 04/20/2022 was normal. Objective: Vitals: see above Lungs: Clear. Cardiac: S1S2. Regular. Abdomen: Continues to improve in his less tender. Disposition/Potential discharge - Likely to return to previous living situation. Total time is 35 minutes with greater than 50% spent in counseling and coordination of care. Exam Const: Vital Signs, click to edit/add: Vital Signs - 24 hr 04/23/22 19:00 04/23/22 23:00 04/23/22 23:00 Temperature 98.4 F Pulse Rate Pulse Rate [Right Pulse Oximeter] 76 86 76 Respiratory Rate 16 20 20 Blood Pressure Blood Pressure [Le ft Arm] 109/79 136/82 Pulse Oximetry 97 95 Oxygen Delivery Me thod Room Air Room Air 04/23/22 23:35 04/24/22 03:00 04/24/22 08:20 Temperature 98.4 F Pulse Rate 75 Pulse Rate [Right Pulse Oximeter] 74 116 H Respiratory Rate 18 Blood Pressure Blood Pressure [Le ft Arm] 120/84 Pulse Oximetry 93 Oxygen Delivery Me thod Room Air 04/24/22 08:20 04/24/22 08:25 04/24/22 09:20 Temperature 98.1 F Pulse Rate 116 H Pulse Rate [Right Pulse Oximeter] 79 150 H Respiratory Rate 16 Blood Pressure Blood Pressure [Le ft Arm] 129/83 98/72 Pulse Oximetry 94 Oxygen Delivery Me thod Room Air 04/24/22 10:00 04/24/22 13:49 Temperature 98 F Pulse Rate 76 Pulse Rate [Right Pulse Oximeter] 145 H Respiratory Rate 18 Blood Pressure 117/82 Blood Pressure [Le ft Arm] 105/72 Pulse Oximetry Oxygen Delivery Me thod
--- NOTE | 2022-05-08 09:44 | W.ANESCHARGE ---
Anesthesia Charges Start Date/Time Anesthesia Start Date: 04/17/22 Anesthesia Start Time: 16:30 Stop Date/Time Anesthesia Stop Date: 04/17/22 Anesthesia Stop Time: 20:31 Summary Emergency: Yes Extremes of Age: Over 68-CPT [id number]
== END 2022-04-24 13:41 | disposition home or self-care (01) | DRG 330 ==
LOC: ED 15:12 → OR 15:15 → MEDSURG 04-18 03:00
PROVIDERS: Family Medicine; Hospitalist; Surgery; Admitting Provider Surgery; Emergency Provider Emergency Medicine; PCP Family Medicine; Visit Provider Surgery
PROC: 0DTJ4ZZ Resection of Appendix, Percutaneous Endoscopic Approach (ICD-10-PCS; CPT 44970; principal; 2022-04-17 16:30)
DX: K35.32 Acute appendicitis with perforation, localized peritonitis, and gangrene, without abscess (principal); I97.191 Other postprocedural cardiac functional disturbances following other surgery; G62.9 Polyneuropathy, unspecified; H90.5 Unspecified sensorineural hearing loss; R33.9 Retention of urine, unspecified; I48.91 Unspecified atrial fibrillation; R13.10 Dysphagia, unspecified; Z96.652 Presence of left artificial knee joint
CPT/HCPCS: 00840; 36415; 51702; 51798; 64488; 71045; 74177; 76942; 80048; 80076; 81001; 83605; 83735; 83880; 84132; 84145; 84146; 84484; 85025; 85610; 86140; 87040; 87502; 87634; 87635; 88304; 88307; 93005; 93225; 93226; 93306; 97110; 97112; 97116; 97161; 97165; 97535; 99100; 99140; 99284; 99285; G0378; A9270; J0330; J1100; J1170; J1650; J2405; J2543; J2704; J3010; J3370; J7120; P9047; Q9967

== ENCOUNTER 2023-02-20 13:12 | Emergency (ER) | payer MEDICARE, SELFPAY ==
[2023-02-20 13:17] VITALS: BP 143/77; PULSE 84; RESP 18; TEMP 36.4; O2SAT 97; BMI 23.7
--- NOTE | 2023-02-20 13:18 | ED.GENADULT ---
HPI - General Adult General Date Seen: 02/20/23 Chief complaint: Extremity Pain/Injury, Upper Stated complaint: Caught in a machine-debride? Susan peralta Time Seen by Provider: 02/20/23 13:17 History of Present Illness HPI narrative: This is a very pleasant, robust 82-year-old male presenting to the ER today with his for evaluation of a right hand, 5th digit injury. 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 He was wearing gloves. As he was wiping away some metal shards he got his right hand caught in the Milling machine. It sounds like in a machine caught hold of his glove and then abruptly pulled his hand into the machine. He suffered injury to the pinky finger. The distal phalanx of the finger at was torn off an amputated. The middle phalanx was degloved in the bone is explosives. The proximal phalanx is still covered with skin. He is having pain radiating all the way down the ulnar border of his hand into the flexor compartment on the ulnar side of his wrist. He suspects he might have injured the tendon that flexes his fingers (possibly flexor carpi ulnaris tendon?). No other injuries. He has mild pain in the 4th and 3rd digit but they are not deformed. No lacerations there. No numbness or tingling in his 4th and 3rd digits. He is up-to-date on tetanus. He is not diabetic or immunosuppressed. No known drug allergies. Related Data Previous Rx's Medication Instructions Recorded sennosides 8.6 mg-docusate sodium 1 tab PO BID #90 tabs 04/23/22 50 mg tablet (Stool Softener-Laxative) tramadol 50 mg tablet 50 - 100 mg (1 - 2 x 50 mg) PO Q6H 04/23/22 PRN Pain #10 tabs amoxicillin 250 mg-potassium 10 ml PO TID #150 mL 04/24/22 clavulanate 62.5 mg/5 mL oral suspension (Augmentin) apixaban 5 mg tablet (Eliquis) 5 mg PO BID #60 tabs 04/24/22 metoprolol tartrate 25 mg tablet 12.5 mg (1/2 x 25 mg) PO BID #90 04/24/22 tabs Allergies Allergy/AdvReac Type Severity Reaction Status Date / Time No Known Drug Allergies Allergy Verified 04/17/22 10:29 [facility] Medical History (Updated 02/20/23 @ 14:16 by Tai Argueta MD) [place] (hard of hearing) ?H91.90 - Unspecified hearing loss, unspecified ear (ICD-10) 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, 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) ?G62.9 - Polyneuropathy, unspecified (ICD-10) ?H90.5 - Unspecified sensorineural hearing loss (ICD-10) Surgical History (Updated 04/24/22 @ 18:57 by Letty Sim MD) H/O rectal sphincterotomy ?Z98.890 - Other specified postprocedural states (ICD-10) H/O hemicolectomy ?Z90.49 - Acquired absence of other specified parts of digestive tract (ICD-10) History of total left knee replacement ?Z96.652 - Presence of left artificial knee joint (ICD-10) H/O fracture of ankle ?Z87.81 - Personal history of (healed) traumatic fracture (ICD-10) H/O hernia repair ?Z98.890 - Other specified postprocedural states (ICD-10) ?Z87.19 - Personal history of other diseases of the digestive system (ICD-10) Social History Smoking Status: Unknown if ever smoked How often do you have a drink containing alcohol: never AUDIT-C Alcohol total score: 0 Non-prescribed substance use: denies use service: No Exam Narrative: Exam Narrative: Constitutional: Appears well-developed and well-nourished. Alert. Conversant. Non toxic. HENT: Head: Atraumatic. Nose: Nose normal. Mouth/Throat: Oral mucosa is clear and moist. no trismus. Pharynx normal. Tonsils symmetric. No tonsillar enlargement, erythema, or exudate. Eyes: Conjunctivae normal. EOM normal. Pupils equal, round, and reactive to light. No scleral icterus. Neck: Normal range of motion. Neck supple. No tracheal deviation present. Cardiovascular: Normal rate, regular rhythm. Symmetric radial artery pulses . Scant amount of slow venous oozing from the injured finger. No pulsatile bleeding. Pulmonary/Chest: Effort normal. No stridor. No respiratory distress. No wheezes. No rales. No rhonchi . No tenderness. Abdominal: Soft. Bowel sounds normal. No distension. No mass. No tenderness. No rebound. No guarding. Musculoskeletal: RUE: Normal range of motion in the shoulder, elbow, wrist, thumb, and digits 2, 3, 4. The 5th digit is injured. The distal phalanx is absent. The skin from the middle phalanx has been degloved on the dorsal and volar aspects, exposing the bone and a little bit of flexor tendon or ligament. The proximal phalanx seems to be intact and is covered by skin. He is able to flex and extend the MCP and to a lesser extent the PIP joint. He has pain and tenderness in the line spreading proximally from the 5th digit along the hypothenar eminence and the radial aspect of his forearm. There is no other bruising, abrasion, or other injuries. Normal range of motion in his wrist. No other deformity LUE: Normal range of motion. No tenderness. No deformity RLE: Normal range of motion. No edema. No tenderness. No deformity LLE: Normal range of motion. No edema. No tenderness. No deformity Neurological: Alert and oriented to person, place, and time. Normal strength. CN II-VII intact. No sensory deficit. GCS eye subscore is 4. GCS verbal subscore is 5. GCS motor subscore is 6. Normal coordination Skin: Skin is warm and dry. No rash noted. No pallor. Normal capillary refill. Psychiatric: Normal mood. Normal affect. Const: Vital Signs, click to edit/add: Vital Signs - 24 hr 02/20/23 13:17 Temperature 97.5 F L Pulse Rate [Right Pulse Oximeter] 84 Respiratory Rate 18 Blood Pressure [Ri ght Upper Arm] 143/77 H Pulse Oximetry 97 Oxygen Delivery Me thod Room Air Course Course ED Course: Patient arrived and was assessed in room 4. Based on my initial assessment I felt the patient need evaluation by Hand surgery. Likely will require more extensive amputation of the digit, and or a grafting procedure to try to cover his exposed middle phalanx bone. He and his requested [facility] rather than transfer to the trauma center is in the [facility]. I placed a consult phone call through the [facility] transfer line. Patient was accepted to the ER at [facility] in [facility] by Dr. Tillman. While this was occurring I had the nurses started an IV, administer 1 g of IV Ancef. Once I completed the transfer call to [facility] we performed a digital block. Procedure: Digital block Indication-right hand 5th digit injury Procedure: Sterile prepped using Betadine. Using 0.25% bupivacaine without epinephrine after sterile prep we used a 27 gauge needle from a dorsal approach on the radial side and on the ulnar side of the digit. We injected a total of 5 mL of 0.5% bupivacaine. Good anesthesia of the digit was achieved. No complication noted. Patient continued to have pain in his right wrist and forearm, likely from a tendon injury that was more bothersome than his finger. For this we administered IV Dilaudid. Zofran to prevent nausea. Subsequently I received a phone call back from the hand surgeon at [facility], Dr. granados. He requested that we obtain x-rays and push them to [facility]. X-rays were obtained, as above. Vital Signs Vital signs: Initial Vital Signs Temperature 97.5 F L 02/20/23 13:17 Temperature Source Temporal Artery Scan 02/20/23 13:17 Pulse Rate 84 02/20/23 13:17 Respiratory Rate 18 02/20/23 13:17 Blood Pressure 143/77 H 02/20/23 13:17 Blood Pressure Mean 99 02/20/23 13:17 Blood Pressure Position Sitting 02/20/23 13:17 Pulse Oximetry 97 02/20/23 13:17 Oxygen Delivery Method Room Air 02/20/23 13:17 Vital Signs Temperature 97.5 F L 02/20/23 13:17 Pulse Rate 84 02/20/23 13:17 Respiratory Rate 18 02/20/23 13:17 Blood Pressure 143/77 H 02/20/23 13:17 Pulse Oximetry 97 02/20/23 13:17 Oxygen Delivery Method Room Air 02/20/23 13:17 Temperature 97.5 F L 02/20/23 13:17 Pulse Rate 84 02/20/23 13:17 Respiratory Rate 18 02/20/23 13:17 Blood Pressure 143/77 H 02/20/23 13:17 Pulse Oximetry 97 02/20/23 13:17 Oxygen Delivery Method Room Air 02/20/23 13:17 Medications Administered Medications: Discontinued Medications Generic Name Dose Route Start Last Admin Trade Name Sunitha PRN Reason Stop Dose Admin Cefazolin Sodium 1 gm 02/20/23 13:31 02/20/23 13:53 Cefazolin 1 Gm Inj IVP 02/20/23 13:32 1 gm ONCE ONE Administration Hydromorphone HCl 0.5 mg 02/20/23 13:31 02/20/23 13:55 Hydromorphone 0.5 Mg/0.5 Ml Inj IVP 0.5 mg Q1H PRN Administration Pain Ondansetron HCl 4 mg 02/20/23 13:31 02/20/23 13:55 Ondansetron 2 Mg/Ml Inj IVP 02/20/23 13:32 4 mg ONCE ONE Administration Medical Decision Making MDM Narrative Medical decision making narrative: Who very pleasant robust 82-year-old gentleman presenting to the ER today with a partial amputation/partial degloving injury to his right hand 5th digit that occurred in his home shop while using a 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 Based on his presentation we believe that he needs evaluation today by Hand surgery. He and his family selected [facility]. We were able to contact [facility] and arrange transfer for the patient to go from our ER in [place] to the ER at [facility] where he will be evaluated in the ER and seen by Hand surgery. Discussed with the patient that he will either require grafting to cover his exposed bone and or further amputation of the injured digit. Tetanus is up-to-date. He was started on IV prophylactic antibiotics here in the ER. Digital block and IV opiates for pain. His will be able to drive him to his home in [place]. From there they will ride with her adult son straight to [facility]. He will remain NPO until seen in the ER at [facility] The patient left his amputated part of his finger tip in the dirty glove in the shop of his home. While they stop at home they will roller picker the glove and digit. I recommended that they put the amputated digit into zip lockk bag and then put that is the block bagged a cool water but not directly on ice. Discussed with them that it has likely been too contaminated by working in the shop and had too much warm ischemia time to be reimplanted. Nonetheless they will bring it with him to [facility] in case and surgeon wants to try to reimplant or use part of it for grafting. Imaging Data xr roght 5th fingers: Attestation: I have reviewed the pertinent imaging results. My impression: Amputation of the distal phalanx. No fracture through the middle or proximal phalanges. No definite FB Radiologist's impression: FINDINGS: Amputation of the right 5th phalanx to the middle phalanx. No radiopaque foreign body. Soft tissue edema. There is otherwise no acute fractures are seen. Discharge Plan Discharge Clinical Impression: Degloving injury of finger, Amputation of finger of right hand Patient Disposition: [facility] Additional Instructions: Please go directly home and meet with your son. Leave with him as soon as possible to get to the ER at [facility]. Go to the emergency department of [address] If you have time and if it is feasible at home, please receive the amputated part of your finger from the shop. If possible, remove the finger from the glove and place it into a ziplock bag. But the ziplock bag into some cool water with some ice cubes into a cooler. Do not place your injured finger directly onto ice. Do not eat or drink until you are seen in the ER at [facility] Prescriptions: No Action sennosides-docusate sodium [Stool Softener-Laxative] 8.6-50 mg Tablet 1 tab PO BID Qty: 90 0RF tramadol 50 mg Tablet 50 - 100 mg PO Q6H PRN (Reason: Pain) Qty: 10 0RF Eliquis 5 mg tablet 5 mg PO BID Qty: 60 2RF metoprolol tartrate 25 mg tablet 12.5 mg PO BID Qty: 90 3RF amoxicillin-pot clavulanate [Augmentin] 250-62.5 mg/5 mL suspension for reconstitution 10 ml PO TID Qty: 150 0RF Rx Instructions: finish three days of antibiotics; three doses each day Stand Alone Forms: [employer] Info Instructions
--- NOTE | 2023-02-20 13:50 | CRLHL7_ITS ---
For Patients: As a result of the Cures Act, medical imaging exams and procedure reports are released immediately into your electronic medical record. You may view this report before your referring provider. If you have questions, please contact your health care provider. INDICATION: Injury amputation TECHNIQUE: Views of the right 5th finger FINDINGS: Amputation of the right 5th phalanx to the middle phalanx. No radiopaque foreign body. Soft tissue edema. There is otherwise no acute fractures are seen. Dictated by Simi Smith MD @ 02/20/2023 2:19:20 PM (Electronically Signed)
[2023-02-20] MEDS: CEFAZOLIN 1 GM inj IVP (13:53)
[2023-02-20] MEDS: ONDANSETRON 2 MG/ML inj 4 MG IVP (13:55)
[2023-02-20] MEDS: HYDROmorphone 0.5 mg/0.5 ml inj IVP (13:55)
--- NOTE | 2023-02-20 14:13 | ED.NURSE ---
Right 5th digit wrapped in gauze and foam tape upon arrival. Dr. Argueta removed dressing to assess wound. Upon removal of dressing, bone is visualized on the pinky finger. Tip of finger is absent, middle knuckle is fully degloved, most proximal knuckle is badly lacerated on the palm side of the finger and edematous. Area is oozing but mostly well controlled. Wound cleansed and numbed by Dr. Argueta. Finger dressed with moist gauze and secured in place with dry cling wrap gauze.
== END 2023-02-20 14:32 | disposition short-term general hospital (02) ==
PROVIDERS: Emergency Provider Emergency Medicine; PCP Family Medicine
DX: S68.126A Partial traumatic metacarpophalangeal amputation of right little finger, initial encounter (principal); W31.1XXA Contact with metalworking machines, initial encounter; G89.4 Chronic pain syndrome
CPT/HCPCS: 64450; 73140; 96374; 96375; 99284; J0690; J1170; J2405

== ENCOUNTER 2025-01-26 14:53 | Emergency (ER) | payer MEDICARE, OTHER, SELFPAY ==
[2025-01-26] VITALS (31 sets, daily range): BP systolic 129–153; BP diastolic 85–104; PULSE 66–88; RESP 0–18; TEMP 36.3; O2SAT 80–100; BMI 23.6
--- OUTSIDE RECORDS SUMMARY | 2025-01-26 14:56 | XMS_ITS | Clinical Summary ---
Author Organization [facility] Address [address] [place] [address] Care Team Providers Care Hall Porter Name Role Phone Christian Washington MD, Kayden Couch Unavailable [phone] Lisa Marcus MD Primary Care Prov ider Allergies No known active allergies Medications MULTIVITAMIN TAB 0 03/21/2007 Active cholecalciferol (VITAMIN D) 1,000 unit tablet Take 1 tablet by mouth once daily. 0 09/04/2014 Active docusate (COLACE) 100 mg capsule Take 1 Capsule (100 mg) by mouth 2 times daily if needed for Constipation . 0 07/29/2022 Active aspirin chewable 81 mg chewable tabletIndicatio ns:PAD (peripheral artery disease) Chew 1 Tablet (81 mg) by mouth once daily with a meal. 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 09/08/2023 Cramps, muscle, general 01/04/2014 Impaired fasting glucose 01/04/2014 DDD (degenerative disc disease), lumbar 01/05/20 14 DDD (degenerative disc disease), cervical 2013 Hearing loss 06/08/2013 Colon polyp 07/17/2011 Overview (03/08/2017): Colonoscopy 07/2011 polyp repeat in 5 years Colonoscopy 02/2017 polyp repeat in 5 years Back pain 06/23/2010 Elevated CK 06/23/2010 Neuropathy 06/23/2010 Myalgia and myositis, unspecified 06/05/2010 Resolved Problems Problem Noted Date Diagnosed Date Resolved Date Paroxysmal atrial fibrillation 09/08/2023 09/08/2023 Encounters Date Type Department Care Team Description 01/26/2025 9:30 AM CDT Office Visit [facility] [address] [place] [address] Nato Velasquez, AuD Hearing Aid 01/26/2025 Nurse Triage [facility] Nurse Triage Lisa Marcus MD Breathing Problem 01/26/2025 Travel 11/29/2024 9:05 AM CDT Office Visit [facility] [address] [place] [address] Lisa Marcus MD Medicare ANNUAL (subsequent) Visit (84 yo male) 11/29/2024 Travel 11/15/2024 1:00 PM CDT Office Visit [facility] [address] [place] [address] Nato Velasquez, AuD Hearing Aid 11/15/2024 Travel from Last 3 Months Immunizations Immunization Administration Dates Next Due AMB INFLUENZA IIV3 (AGE 65+ YRS) PF (Flu Clinic Only) 02/13/2017 AMB Influenza, IIV4 PF (=>6 mos Flulaval,Fluzone Fluarix)(Flu Clinic Only) 02/09/2019 Amb Influenza, Inact (High-d ose) (Flu Clinic Only) 02/24/2016,01/02/2014 COVID-19 VACCINE COMIRNATY (PFIZER-BIONTECH 30MCG/0.3ML) 12YO+ PFS 01/03/2024 COVID-19 vaccine (Moderna 50 mcg/0.5mL) 12YO+ BIVALENT PF, MDV 02/02/2023 COVID-19 vaccine (Pfizer-Bio NTech 30mcg/0.3mL) 12YO+ ERIKA-SUCROSE PF, MDV 07/22/2021 COVID-19 vaccine (Pfizer-Bio NTech 30mcg/0.3mL) PF, MDV 07/22/2021,06/25/2020,06/04/2020 Influenza A (H1N1), Inactivated 05/01/2009 Influenza A (H1N1), Inactiva rohith (Age >=3 Years) 05/01/2009 Influenza Virus, Unspecified 02/02/2023, 05/01/2009,03/24/2006,02/03,02/23/2003 Influenza, High-dose Inactivated 024,05/16/2018,02/24/2016,01/18,01/02/2014 Influenza, High-dose Quadriv alent Inactivated 02/02/2023,01/21/2022,12/19/2020 Influenza, IIV3 (Age 6-35 mos) 02/03/2012,2009 Influenza, IIV3 (Age >=3 years) 03/07/20 13,06/26/2011,05/23/2010,05/01,03/21/2007,03/24/2006,02/04/2004 ,02/23/2003 Pneumococcal Conj 20-valent (Prevnar 20) 02/10/2023 Pneumococcal Poly,23-Valent (Pneumovax) 06/23/2004 Pneumococcal conj 13-Valent (Prevnar 13) 02/25/2015 RSV, Recombinant ADJ Reconst ituted (Arexvy 120MCG/0.5mL) 02/10/2023 Td (Age >=7 Years) 06/23/2004 Tdap 10/21/2021,06/26/2011 Zoster (Shingrix-RZV, recombinant) 03/25/2021, Zoster (Zostavax-ZVL, live) 05/23/2010 Family History Medical History Relation Name Comments Other Brother 1 ALS Other Brother 2 ALS Other Brother 3 mva Good Health Brother 4 Good Health Brother 5 Cancer Brother 6 Not sure what t ype Heart Disease Brother 6 Stroke Father 80s Other Mother pneumonia, at age 54 Diabetes Other 1 none Cancer Other 2 none Good Health Sister 1 Good Health Sister 2 Good Health Sister 3 Good Health Sister 4 Good Health Sister 5 Good Health Sister 6 Good Health Sister 7 Relation Name Status Comments Brother 1 Brother 2 Brother 3 Brother 4 Alive Brother 5 Alive Brother 6 Alive Father Mother Other 1 Other 2 Sister 1 Alive Sister 2 Alive Sister 3 Alive Sister 4 Alive Sister 5 Alive Sister 6 Alive Sister 7 Alive Social History Tobacco Use Types Packs/Day Years Used Date Smoking Tobacco: Former Cigarettes Q uit: 04/12/1959 Smokeless Tobacco: Never Tobacco Cessation:Counseling Given: Yes Comments:5 pack years Alcohol Use Standard Drinks/Week Comments No 0 (1 standard drink = 0.6 oz pur e alcohol) PHQ-2 Answer Date Recorded PHQ-2 TOTAL SCORE 0 11/29/2024 Social Connections Answer Date Recorded Do you often feel lonely or isolated from those around you? 0 11/29/2024 Financial Resource Strain Answer Date R ecorded Difficulty of Paying Living Expenses 3 11/29/2024 Difficulty of Paying Living Expenses Not on file 11/29/2024 Food Insecurity Answer Date Recorded Do you worry your food will run out before you are able to buy more? 1 11/29/2024 Transportation Needs Answer Date Record ed Does lack of transportation keep you from medica l appointments? 1 11/29/2024 Does lack of transportation keep you from work, meetings or getting things that you need? 1 11/29/2024 Housing Stability Answer Date Recorded What is your housing situation today? 1 11/29/2024 Utilities Answer Date Recorded Do you have trouble paying f or utilities (for example, heat, electricity, water, phone)? 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 Not on file Not on file Not on fi le Obstetrics History Last Filed Vital Signs Vital Sign Reading Time Taken Comments Blood Pressure 104/68 11/29/2024 9:10 AM CDT Pulse 87 11/29/2024 9:10 AM CDT Temperature 36.6 C (97.9 F) 12/18/2022 8:04 AM CDT Respiratory Rate 16 06/13/2020 9:18 AM AIRPORT SKILLED MAINTENANCE SUPERVISOR Oxygen Saturation 98% 11/29/2024 9:10 AM CDT Inhaled Oxygen Concentration - - Weight 79.2 kg (174 lb 9.6 oz) 11/29/2024 9:10 A M CDT Height 182.9 cm (6') 11/29/2024 9:10 AM CDT Body Mass Index 23.68 11/29/2024 9:10 AM CDT Plan of Treatment Upcoming Encounters Date Type Department Care Team (Late st Contact Info) Description 02/14/2025 11:00 AM AIRPORT SKILLED MAINTENANCE SUPERVISOR Office Visit [facility] [address] [place] [address] Nato Velasquez, Aamir [address] [place] [address] Health Maintenance Due Date Last Done Comments COVID-19 vaccine series ( season) 2024 01/03/2024, 02/02/2023, 02/02/2023, Additional history exists Influenza Vaccine (#1) 2024 , 02/02/2023, 02/09/2019, Additional history exists BMI (ht and wt on same day) for age 18+ 11/29/2025 11/29/2024, 09/08/2023, 12/18/2022, Additional history exists Depression screening for age 12+ 11/29/2025 11/29/2024, 09/08/2023, 09/08/2023, Additional history exists Medicare Wellness for age 65+ 11/30/2025 11/29/2024, 09/08/2023, 07/29/2022, Additional history exists Tetanus booster 10/22/2031 10/21/2021, 06/10, 06/23/2004 Zoster (shingles) series for age 50+ Completed 03/25/2021, 12/19/2020, 05/23/2010 Pneumococcal series for age 50+ Completed 02/10/2023, 02/25/2015, 06/23/2004 RSV vaccine for adults or Completed 02/10/2023 Hepatitis B series for 19+ Aged Out N o longer eligible based on patient's age to complete this topic Insurance [facility] MEDICARE ADVANTAGE MR MEDICARE PART A HB ONLY [facility] MEDICARE ADVANTAGE MR [facility] Care Teams Hall Porter Relationship Specialty Start Date End Date Lisa Marcus MD [address] [place] [address] PCP - General Family Practice 08/27/14 Kayden Gonzales Jr., MD Ophthalmology Surgery 06/26/11
--- OUTSIDE RECORDS SUMMARY | 2025-01-26 14:56 | XMS_ITS | Clinical Summary ---
Author Organization [facility] Address [address] [place] [address] Care Team Providers Care Welfare Analyst Name Role Phone Elsewhere, Pcp Primary Care Provider Unavailabl e Source Comments Patient records contain information from all sites at [facility]. For routine questions regarding patient records, call [phone] during business hours, M-F 8:00 AM - 5:00 PM Central Time. Record requests for emergency care only can be directed to [phone] at any time.[facility] Allergies No known active allergies Medications multivitamin tablet Take 1 tablet by mouth daily. 03/21/2007 Active magnesium 200 mg tablet Take 200 mg by mouth at bedtime as needed. 09/04/2014 Active docusate sodium (COLACE) 100 mg capsule Take 100 mg by mouth 2 (two) times a day as needed. 07/29/2022 Active cholecalciferol , vitamin D3, 25 mcg (1,000 Unit) tablet Take 1 tablet by mouth daily. 09/04/2014 Active ascorbic acid, vitamin C, (ascorbic acid) 500 mg tablet Take 1 tablet by mouth daily. 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 Gender Identity Not on file Sexual Orientation Not on file Last Filed Vital Signs Vital Sign Reading Time Taken Comments Blood Pressure 114/65 03/11/2023 11:15 AM CUSTOMS PATROL OFFICER Pulse 62 03/11/2023 11:15 AM CUSTOMS PATROL OFFICER Temperature 36 C (96.8 F) 03/11/2023 10:45 AM CUSTOMS PATROL OFFICER Respiratory Rate 10 03/11/2023 11:15 AM CUSTOMS PATROL OFFICER Oxygen Saturation 96% 03/11/2023 11:15 AM CUSTOMS PATROL OFFICER Inhaled Oxygen Concentration - - Weight 73.5 kg (162 lb 0.6 oz) 03/11/2023 7:14 A M CUSTOMS PATROL OFFICER Height 182.9 cm (6') 03/11/2023 7:14 AM CUSTOMS PATROL OFFICER Body Mass Index 21.98 03/11/2023 7:14 AM CUSTOMS PATROL OFFICER Plan of Treatment Health Maintenance Due Date Last Done Comments Depression Screening (Annual PHQ-2) 04/12/2024 Fall Risk Screen (Annual) 04/12/2024 COVID-19 Vaccine ( season) 2024 02/02/2023, 01/21/2022, 07/22/2021, Additional history exists Influenza Vaccine (#1) 2024 , 01/21/2022, 12/19/2020, Additional history exists DTaP,Tdap,and Td Vaccines (3 - Td or Tdap) 10/22/2031 10/21/2021, 06/26/2011 Zoster Vaccines Completed 03/25/2021, 0912/2020, 05/23/2010 Pneumococcal vaccine (50+ years) Completed 02/10/2023, 02/25/2015, 06/23/2004 RSV vaccine - (32-36 weeks) or 50+ years Completed 02/10/2023 IPV Vaccines Aged Out No longer eligi ble based on patient's age to complete this topic Medical Devices Implanted Type Area Shank Skinner Device Identifier Shelf Expiration Date Model / Serial / Lot L Knee Implant Knee Implant Left: Knee Insurance ARE Care Teams Welfare Analyst Relationship Specialty Start Date End Date Elsewhere, Pcp PCP - General Internal Medicine 02/20/23
--- OUTSIDE RECORDS SUMMARY | 2025-01-26 14:56 | XMS_ITS | Clinical Summary ---
Author Organization [facility] Address [address] [place] [address] , [address] [place] [address] Phone Care Team Providers Care Oracle Manufacturing Consultant Name Role Phone [facility] Unavailable Unava ilable Conditions or Problems Problem Name Problem Code Onset Date Status Entry Date Provider Comment Standard Description Annotate Peripheral polyneuropathy 783215963 (SNOMED CT) 04/27 Active 04/27 Kofi Brown MD Peripheral nerve disease Median neuropathy, right 365912482 (SNOMED CT) 04/27 Active 04/27 Kofi Brown MD Median neuropathy Muscle weakness 21489515 (SNOMED CT) 12/18 Active 12/18 Jared Aponte MD Muscle weakness Neuropathy 958836220 (SNOMED CT) Active Ela Gomez MD Neuropathy LEG CRAMPS [id number] (SNOMED CT) 06/17 Active 06/17 Femi Connolly MD Cramp in lower limb Medications Medication Instructions Start Date Stop Date Generic Name [facility] Provider VITAMIN D 1000 IU daily VITAMIN D 1000 IU Jared Aponte MD Medications Administered No information available. Allergies, Adverse Reactions, Alerts Observed no known allergies at Results Date Name Value Unit Range Flag Description Internal Other: Authorizatio n - OBS PTSTAUTHDT DONE N PT Todd merchant Authorization Date Office Visit: PER REFERRING, MUSCLE ATROPHY 12/18/14 11:26- 12/18/14 11:26... MEDS REVIEW Done Documenta tion of current medications (procedure) SMOK STATUS former smoker Tobacco smoking status Replaced Document: (P) CREAT INE KINASE, TOTAL, PARANEOPLASTIC AUTOANTIBODY EVAL ... B-12 * pg/mL Cobalamin (Vi tamin B12) [Mass/volume] in Serum or Plasma TSH * u[iU]/mL Thyrotropin [Units/volume] in Serum or Plasma [id number] * GE use only - for LinkLogic import when terms are not otherwise specified SSB * Sjogren's syn drome-B, extractable nuclear Ab, serum SSA * Sjogren's syn drome-A, extractable nuclear Ab, serum INTRP * Interpretatio n ANASCR IFA * JORGE SCREEN , IFA TTG * U/mL TTG (tissue transglutaminase antibody) ESR * mm/h Erythrocyte sedimentation rate by Westergren method STRIA MUS AB * striated muscle antibody CRMP-5-IGG * CRMP-5 - I gG, S AMPHIPHYS AB * Amphiphy sin Ab, S REHEAT FURNACE OPERATOR-2 * Purkinje Cell Cytoplasmic Ab Type 2 REHEAT FURNACE OPERATOR-1 * Purkinje Cell Cytoplasmic Ab Type 1 COMMENTS * comments CPK 474 U/L 29-196 H Creatine marium se [Enzymatic activity/volume] in Serum or Plasma JORGE TITER 2 * JORGE TITER 2 JORGE PATTERN * JORGE (anti nuclear antibody) pattern, serum RHEUMOT FACT * [iU]/mL Rheumato id factor [Units/volume] in Serum or Plasma DS DNA AB * Double Stra nd DNA Antibody (ds DNA) antibody Internal Other: Authorizatio n AUTHBENEFIT Yes Authoriza tion: Assignment of Benefits and Payment Agreement [email or web address] Yes Authorizat ion: Authorization for Norjeremiah/FOZIA to leave messages, voicemail, send text messages, send emails AUTHRELHCARE Yes Authoriz ation: Release/Retrieval of Information to/from Healthcare Facilities, Pharmacy Benefit Payers and Providers ROIAUTHOTHER Yes Authoriz ation: Release of Information - Authorize Others/Insurance - Payment and Healthcare Operations [email or web address] Yes Authoriza tion: Release of Information - Authorize Noran/MDC - Payment and Healthcare Operations AUTHPRIVPRAC Yes Authoriz ation: Notice of privacy practices HIECONSENT Yes Consent To Release information to the Health Information Exchange (HIE) Internal Other: Verbal Autho rization/Emergency Contact VERBAL_EMER Done Verbal au thorization and emergency contact Plan of Care No information available. Procedures Code Procedure Name Date Entry Date CPT-15240 Nerve Conduction 13 or more studies 04/27 CPT-27726 EMG with NCS (5+ muscles) - 2 limbs 04/27 CPT-65715 Thoracic PS (T3-11) CPT-24429 Nerve Conduction 9-10 studies CPT-00919 EMG with NCS (5+ muscles) - 2 limbs 01/18 CPT-63623 Sensory NCS x 2 CPT-63124 Motor NCS x 4 CPT-54946 EMG 2 limb Vital Signs Date Name Value Unit Description Height 73 [in_us] height E&M BMI (Body Mass Index) 26.22 kg/m2 Bod y Mass Index (Ratio) BP Diastolic 78 mm[Hg] blood pressu re, diastolic BP Systolic 134 mm[Hg] blood pressur e, systolic Heart Rate 64 /min pulse rate Weight Measured 198 [lb_av] weight E& M Weight Measured 198 [lb_av] weight E& M Immunizations No information available. Advance Directives No information available.
--- OUTSIDE RECORDS SUMMARY | 2025-01-26 14:57 | XMS_ITS | Encounter Summary ---
Author Organization [facility] Address [address] [place] [address] Care Team Providers Care Occupational Therapist Aide Name Role Phone Elsewhere, Pcp Primary Care Provider Bri e Encounter Details Date Type Department Care Team (Late st Contact Info) Description 05/10/2015 Historical Ophthalmology [facility] Kayden Gonzales Jr., M.D. [address] [place] [id number] Social History Tobacco Use Types Packs/Day Years Used Date Smoking Tobacco: Never Assessed Sex and Gender Information Value Date Recorded Sex Assigned at Not on file Legal Sex Male 7:25 AM HEAT TREATING FURNACE TENDER Gender Identity Not on file Sexual Orientation Not on file documented as of this encounter Progress Notes * Kayden Gonzales M.D. - 05/10/2015 10:03 AM CST Eye General CHIEF COMPLAINT CE HISTORY OF PRESENT ILLNESS Pt here for complete exam No VA co's IMPRESSION / REPORT / PLAN #1 Mild cataracts MR if desired, rto 1 year DIAGNOSIS #1 Mild cataracts CDM Reports - EYEGEN Id: [id number] Status: Fnl documented in this encounter Plan of Treatment Not on file documented as of this encounter Visit Diagnoses Not on filedocumented in this encounter Care Teams Occupational Therapist Aide Relationship Specialty Start Date End Date Elsewhere, Pcp PCP - General Internal Medicine 02/20/23 documented as of this encounter
--- NOTE | 2025-01-26 15:07 | ED_ITS ---
HPI - Weakness General Time Seen by Provider: 15:08 Date Seen: 01/26/25 Chief complaint: Weakness Stated complaint: Shortness of breath/dizziness Time Seen by Provider: 01/26/25 15:07 Source: patient, RN notes reviewed and old records reviewed Mode of arrival: ambulatory Limitations: no limitations History of Present Illness HPI Narrative: Jayson is a very pleasant 84-year-old male with history of small-bowel resection x2, atrial fibrillation with RVR according to the chart but not known by patient or his who comes to the emergency room for evaluation regarding not feeling well. Jayson notes that yesterday morning he had the onset of a headache which was somewhat everywhere, dizziness weakness and shortness of breath that lasted throughout the morning but was gone by noon. He had no known fever at that time. Today the symptoms started again and his noted that he had a blood pressure of 90/60 but his O2 sats were okay. He comes here to the emergency room and does agree that he just does not feel well. His headache is somewhat mild any states is everywhere. He has a little bit of chest pain when asked but initially had denied any symptoms. He notes very mild nausea but no vomiting. He does have some abdominal pain in the mid aspect of his stomach. 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 He also had an appendectomy in the past urine a half and at that time they also removed part of the bowel. He also noted a some low back pain earlier today but denies any trauma falls urinary symptoms. Patient also states that he is short of breath and with exertion it really takes his breath away. He denies any calf tenderness or swelling. He has not had a history of a DVT in the past. Patient noted to have atrial fibrillation on his EKG today. According to his chart he is on Eliquis he denies any fevers chills cough or cold. He has not had any recent falls or trauma. 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 Related Data Previous Rx's ?Medication ?Instructions ?Recorded sennosides 8.6 mg-docusate sodium 1 tab PO BID #90 tab s 04/23/22 50 mg tablet (Stool Softener-Laxative) tramadol 50 mg tablet 50 - 100 mg (1 - 2 x 50 mg) PO Q6H 04/23/22 PRN Pain #10 tabs amoxicillin 250 mg-potassium 10 ml PO TID #150 mL 04/12 07/02 clavulanate 62.5 mg/5 mL oral suspension (Augmentin) apixaban 5 mg tablet (Eliquis) 5 mg PO BID #60 tabs metoprolol tartrate 25 mg tablet 12.5 mg (1/2 x 25 mg) PO BID #90 04/24/22 tabs fluticasone propionate 50 1 spray intranasal BID #16 g carl 12/14/24 mcg/actuation nasal spray,suspension Allergies Allergy/AdvReac Type Severity Reaction Status Date / Time No Known Drug Allergies Allergy Verified 01/26/25 18:06 Review of Systems Status of ROS: Reports: 10 or more systems reviewed and unremarkable except as noted in History and below Const: Reports: fatigue; Denies: fever or chills Eyes: Denies: change in vision, blurry vision or seeing flashes ENMT: Denies: throat pain, neck pain, throat swelling or nasal congestion Cardio: Reports: chest pain (Mild anterior), lightheadedness and shortness of breath with exertion (Especially with exertion); Denies: palpitations, edema or swelling of feet/ankles Resp: Reports: shortness of breath (Especially with exertion); Denies: cough GI: Reports: abdominal pain and nausea; Denies: vomiting or diarrhea : Denies: painful urination, urinary frequency or urinary urgency Musculo: Reports: back pain (Lumbar); Denies: neck pain, extremity pain or extremity swelling Integ/Breast: Denies: rash or itching Neuro: Reports: headache (Mild and global) Endo: Reports: fatigue Allergy/Immuno: Denies: throat swelling [facility] Medical History QAWALANGIN (hard of hearing) ?H91.90 - Unspecified hearing loss, unspecified ear (ICD-10) 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, 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) ?G62.9 - Polyneuropathy, unspecified (ICD-10) ?H90.5 - Unspecified sensorineural hearing loss (ICD-10) Surgical History H/O rectal sphincterotomy ?Z98.890 - Other specified postprocedural states (ICD-10) H/O hemicolectomy ?Z90.49 - Acquired absence of other specified parts of digestive tract (ICD- 10) History of total left knee replacement ?Z96.652 - Presence of left artificial knee joint (ICD-10) H/O fracture of ankle ?Z87.81 - Personal history of (healed) traumatic fracture (ICD-10) H/O hernia repair ?Z98.890 - Other specified postprocedural states (ICD-10) ?Z87.19 - Personal history of other diseases of the digestive system (ICD-10) Social History Smoking Status: Unknown if ever smoked How often do you have a drink containing alcohol: never AUDIT-C Alcohol total score: 0 Non-prescribed substance use: denies use service: No Exam Narrative: Exam Narrative: Alert and oriented. He is nontoxic in appearance. Mentation and speech is normal. Face symmetrical with EOM is full. Neck is supple. No lymphadenopathy. Heart with a regular rate irregularly irregular rhythm. No additional murmurs or heart sounds noted lungs are clear bilaterally. Abdomen is soft nontender. Lower extremities with no evidence of edema. Moving all extremities. Const: Vital Signs, click to edit/add: Vital Signs - 24 hr 01/26/25 15:02 01/26/25 15:43 01/26/25 15:46 Temperature 97.4 F L Pulse Rate 84 Pulse Rate [Pulse Oximeter] 88 Respiratory Rate 18 16 Blood Pressure 133/88 Blood Pressure [Ri ght Upper Arm] 140/95 H Pulse Oximetry 99 96 93 Oxygen Delivery Me thod Room Air 01/26/25 15:47 01/26/25 16:00 01/26/25 16:02 Temperature Pulse Rate 86 79 76 Pulse Rate [Pulse Oximeter] Respiratory Rate 13 Blood Pressure 129/85 Blood Pressure [Ri ght Upper Arm] Pulse Oximetry 93 96 93 Oxygen Delivery Me thod 01/26/25 16:15 01/26/25 16:30 01/26/25 16:32 Temperature Pulse Rate 73 83 80 Pulse Rate [Pulse Oximeter] Respiratory Rate 12 Blood Pressure 133/93 H Blood Pressure [Ri ght Upper Arm] Pulse Oximetry 99 98 100 Oxygen Delivery Me thod 01/26/25 16:45 01/26/25 17:00 01/26/25 17:02 Temperature Pulse Rate 85 76 75 Pulse Rate [Pulse Oximeter] Respiratory Rate 12 Blood Pressure 137/102 H Blood Pressure [Ri ght Upper Arm] Pulse Oximetry 100 99 99 Oxygen Delivery Me thod 01/26/25 17:15 01/26/25 17:30 01/26/25 17:32 Temperature Pulse Rate 75 66 68 Pulse Rate [Pulse Oximeter] Respiratory Rate 14 14 Blood Pressure 141/96 H Blood Pressure [Ri ght Upper Arm] Pulse Oximetry 100 100 Oxygen Delivery Me thod 01/26/25 17:33 01/26/25 17:45 01/26/25 18:05 Temperature Pulse Rate 73 76 73 Pulse Rate [Pulse Oximeter] Respiratory Rate 12 Blood Pressure 153/104 H Blood Pressure [Ri ght Upper Arm] Pulse Oximetry 96 100 100 Oxygen Delivery Me thod 01/26/25 18:15 01/26/25 18:30 01/26/25 18:32 Temperature Pulse Rate 69 75 76 Pulse Rate [Pulse Oximeter] Respiratory Rate Blood Pressure Blood Pressure [Ri ght Upper Arm] Pulse Oximetry 99 98 97 Oxygen Delivery Me thod 01/26/25 18:33 01/26/25 18:45 01/26/25 19:00 Temperature Pulse Rate 76 80 Pulse Rate [Pulse Oximeter] Respiratory Rate 0 L 0 L Blood Pressure Blood Pressure [Ri ght Upper Arm] Pulse Oximetry 96 99 Oxygen Delivery Me thod 01/26/25 19:05 01/26/25 19:15 01/26/25 19:30 Temperature Pulse Rate 77 74 78 Pulse Rate [Pulse Oximeter] Respiratory Rate 10 L 9 L 10 L Blood Pressure Blood Pressure [Ri ght Upper Arm] Pulse Oximetry 98 98 100 Oxygen Delivery Me thod 01/26/25 19:35 01/26/25 19:45 01/26/25 20:09 Temperature Pulse Rate 74 83 Pulse Rate [Pulse Oximeter] Respiratory Rate 11 L 13 Blood Pressure Blood Pressure [Ri ght Upper Arm] Pulse Oximetry 80 L 99 98 Oxygen Delivery Me thod 01/26/25 20:10 Temperature Pulse Rate Pulse Rate [Pulse Oximeter] Respiratory Rate Blood Pressure 129/94 H Blood Pressure [Ri ght Upper Arm] Pulse Oximetry Oxygen Delivery Me thod Documenting provider has reviewed patient's vital signs: yes Course Course ED Course: Patient noted to have no focal neurological deficits, atrial fibrillation on EKG which is surprised patient and his although this is listed as a previous diagnosis in his chart and he is currently on Eliquis. He has no active fever a t this time. Blood pressure is normal here in the emergency room. At this time differential diagnosis is quite broad and includes underlying infection such as COVID influenza pneumonia UTI cholecystitis bowel pathology. We will also include acute coronary event, angina, aortic dissection. 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 Reevaluation(s) Reevaluation #1: I have clarified with Jayson in his that he did have a history of atrial fibrillation after his appendectomy. He was on Eliquis for short period of time but is no longer on that medication. Reevaluation #2: Improvement of symptoms after normal saline bolus. Vital Signs Vital signs: Initial Vital Signs Temperature 97.4 F L 01/26/25 15:02 Temperature Source Temporal Artery Scan 01/26/25 15:02 Pulse Rate 88 01/26/25 15:02 Respiratory Rate 18 01/26/25 15:02 Blood Pressure 140/95 H 01/26/25 15:02 Blood Pressure Mean 110 H 01/26/25 15:02 Pulse Oximetry 99 01/26/25 15:02 Oxygen Delivery Method Room Air 01/26/25 15:02 Vital Signs Temperature 97.4 F L 01/26/25 15:02 Pulse Rate 88 01/26/25 15:02 Respiratory Rate 18 01/26/25 15:02 Blood Pressure 140/95 H 01/26/25 15:02 Pulse Oximetry 99 01/26/25 15:02 Oxygen Delivery Method Room Air 01/26/25 15:02 Temperature 97.4 F L 01/26/25 15:02 Pulse Rate 83 01/26/25 20:09 Respiratory Rate 13 01/26/25 19:45 Blood Pressure 129/94 H 01/26/25 20:10 Pulse Oximetry 98 01/26/25 20:09 Oxygen Delivery Method Room Air 01/26/25 15:02 Medications Administered Medications: Discontinued Medications Generic Name Dose Route Start Last Admin Trade Name Sunitha PRN Reason Stop Dose Admin Sodium Chloride 500 mls @ 500 mls/hr 01/26/25 15:23 01/26/25 16:40 0.9 % Sodium Chloride 500 Ml IV 01/26/25 16:22 Infused .Q1H DIMA Infusion MDM - Weakness MDM Narrative Medical decision making narrative: 1. Atypical chest pain-patient has 2 sets of negative cardiac enzymes and reassuring EKG. 2. Atrial fibrillation-rate controlled at this time. No evidence of tachycardia while in the emergency room. Hard to say when patient went into AFib as he has no palpitations. Certainly could be that he is feeling poorly because of atrial fibrillation. I did contact [facility] and spoke with Dr. Winston. Suggest and agrees with initiation of Eliquis but would hold off on any rate control given his heart rate which is in the 70s to 80s. Patient is advised to follow-up with outpatient echocardiogram through his primary clinic. Also knee cardiac consult. Given his age he will be on Eliquis 2.5 mg p.o. b.i.d.. Patient's notes that she still has this medication at home. 3. Pulmonary nodules-these are discussed with family. Will need to follow up for a PET scan for repeat CT or possibly comparison is. This is discussed with Jayson and his . Will defer to primary clinic to arrange this. 4. Shortness of breath with exertion-no evidence of pneumonia PE on CT. Patient does have multiple pulmonary nodules. No evidence of hypoxia while in the emergency room. Likely in need of further cardiac evaluation and this will be deferred to his primary clinic. 5. . Disposition-patient is actually feeling improved after the normal saline bolus. I was unable to find source of an infection with negative chest abdominal and pelvic CT as well as urinalysis. We did draw blood cultures prior to his departure. Patient will follow-up with the [facility] and his primary provider. Of course should he have worsening symptoms he will return to the emergency room for further evaluation especially for fever, chest pain, syncope and as needed. Medical Records Attestation: I reviewed the patient's medical records. Lab Data Attestation: I reviewed the patient's lab results. Labs: Lab Results 01/26/25 01/26/2501/26/25 Range/Units 15:05 15:22 15:30 WBC 7.39 (4.50-11.00) K/uL RBC 4.39 (4.30-5.90) m/uL Hgb 12.9 L (13.5-17.5) gm/dL Hct 39.2 (37.0-53.0) % MCV 89 (80-100) fL MCH 29 (26-34) pg MCHC 33 (32-36) gm/dL RDW Coeff of Gelacio 13.7 (11.5-15.5) % Plt Count 237 (140-440) K/uL Neut % (Auto) 65.5 (42.0-72.0) % Lymph % (Auto) 22.1 (20-44) % [place] % (Auto) 8.4 (0.0-11.0) % Eos % (Auto) 2.7 (0.0-7.0) % Baso % (Auto) 0.4 (0.0-3.0) % Neut # (Auto) 4.84 (1.7-7.0) K/uL Lymph # (Auto) 1.63 (0.90-2.90) K/uL [place] # (Auto) 0.60 (0.00-0.90) K/UL Eos # (Auto) 0.20 (0.00-0.50) K/uL Baso # (Auto) 0.03 (0.00-0.30) K/uL Abs Immat Gran (auto) 0.07 (0.00-0.30) K/uL Imm/Tot Granulo (auto) 0.9 % Sodium 135 (135-149) mmol/L Potassium 4.0 (3.6-5.1) mmol/L Chloride 102 (96-114) mmol/L Carbon Dioxide 28 (20-32) mmol/L Anion Gap 5 L (7-15) mEq/L BUN 17 (7-30) mg/dL Creatinine 1.0 (0.5-1.5) mg/dL Estimated Creat Clear 58.20 Estimated GFR 73 ml/min Glucose 123 H (60-115) mg/dL Lactate 1.5 (0.5-1.9) mmol/L Calcium 9.6 (8.4-10.6) mg/dL Total Bilirubin 0.9 (0.1-1.5) mg/dL AST 36 H (12-35) U/L ALT 19 (4-50) U/L Alkaline Phosphatase 80 (40-150) U/L C-Reactive Protein < 0.5 L (0.5-1.0) mg/dL Total Protein 7.4 (6.0-8.3) g/dL Albumin 4.2 (3.3-5.0) g/dL Lipase 105 (23-300) U/L Urine Color (Yellow) Urine Appearance (Clear) Urine pH (5.0-8.5) Ur Specific [place] (1.000-1.030) Urine Protein (Negative) Urine Glucose (UA) (Negative) Urine Ketones (Negative) Urine Blood (Negative) Urine Nitrite (Negative) Urine Bilirubin (Negative) Urine Urobilinogen (0.2-1.0) Ur Leukocyte Esterase (Negative) Urine RBC (0-2) Urine WBC (0-5) Ur Squamous Epith Cells (None-Few) Urine Bacteria (None) SARS-CoV-2 (PCR) Negative SARS-CoV-2 (Negative) Influenza Type A (PCR) Negative PCR FLU A (Negative) Influenza Type B (PCR) Negative PCR FLU B (Negative) RSV (PCR) Negative PCR RSV (Negative) POC Troponin I 0.01 (0.01-0.04) ng/ml 01/26/25 01/26/25 Range/Units 16:21 18:55 WBC (4.50-11.00) K/uL RBC (4.30-5.90) m/uL Hgb (13.5-17.5) gm/dL Hct (37.0-53.0) % MCV (80-100) fL MCH (26-34) pg MCHC (32-36) gm/dL RDW Coeff of Gelacio (11.5-15.5) % Plt Count (140-440) K/uL Neut % (Auto) (42.0-72.0) % Lymph % (Auto) (20-44) % [place] % (Auto) (0.0-11.0) % Eos % (Auto) (0.0-7.0) % Baso % (Auto) (0.0-3.0) % Neut # (Auto) (1.7-7.0) K/uL Lymph # (Auto) (0.90-2.90) K/uL [place] # (Auto) (0.00-0.90) K/UL Eos # (Auto) (0.00-0.50) K/uL Baso # (Auto) (0.00-0.30) K/uL Abs Immat Gran (auto) (0.00-0.30) K/uL Imm/Tot Granulo (auto) % Sodium (135-149) mmol/L Potassium (3.6-5.1) mmol/L Chloride (96-114) mmol/L Carbon Dioxide (20-32) mmol/L Anion Gap (7-15) mEq/L BUN (7-30) mg/dL Creatinine (0.5-1.5) mg/dL Estimated Creat Clear Estimated GFR ml/min Glucose (60-115) mg/dL Lactate (0.5-1.9) mmol/L Calcium (8.4-10.6) mg/dL Total Bilirubin (0.1-1.5) mg/dL AST (12-35) U/L ALT (4-50) U/L Alkaline Phosphatase (40-150) U/L C-Reactive Protein (0.5-1.0) mg/dL Total Protein (6.0-8.3) g/dL Albumin (3.3-5.0) g/dL Lipase (23-300) U/L Urine Color Yellow (Yellow) Urine Appearance Clear (Clear) Urine pH 7.5 (5.0-8.5) Ur Specific [place] 1.015 (1.000-1.030) Urine Protein Negative (Negative) Urine Glucose (UA) Negative (Negative) Urine Ketones Negative (Negative) Urine Blood Negative (Negative) Urine Nitrite Negative (Negative) Urine Bilirubin Negative (Negative) Urine Urobilinogen 0.2 (0.2-1.0) Ur Leukocyte Esterase Negative (Negative) Urine RBC 0-2 (0-2) Urine WBC 0-2 (0-5) Ur Squamous Epith Cells None (None-Few) Urine Bacteria None (None) SARS-CoV-2 (PCR) (Negative) Influenza Type A (PCR) (Negative) Influenza Type B (PCR) (Negative) RSV (PCR) (Negative) POC Troponin I 0.00 L (0.01-0.04) ng/ml Imaging Data Chest x-ray: Attestation: I have reviewed the pertinent imaging results. My impression: I do not note any infiltrates warm widened mediastinum. Radiologist's impression: No patchy consolidation, effusion or pneumothorax. Cardiac size is within normal limits without pulmonary edema. CT scan - chest: Attestation: I have reviewed the pertinent imaging results. My impression: I do not note any evidence of PE. Radiologist's impression: Cardiovascular: The pulmonary arteries are unremarkable in enhancement with no evidence of acute pulmonary embolism. Mild biventricular cardiomegaly is present. Mild aneurysmal enlargement of the ascending aorta is noted measuring 4 cm. Mediastinum: Mild bilateral hilar adenopathy is noted with lymph nodes measuring up to 1.2 cm on the right and 1 cm on the left. Lung: There are 2 nodules along the left major fissure measuring up to 9 mm. A nodule is seen in the left lower lobe measuring 6 mm on image 170, series 5. An adjacent nodule along the base of the left lower lobe is noted on image 180 measuring 9 mm. Pleura and pericardium: No sign of pleural effusion seen. No significant pericardial effusion is present. Chest wall and axilla: No mass or adenopathy seen. Bone: Unremarkable for age. IMPRESSIONS: 1. No CT evidence of acute pulmonary emboli seen. 2. Mild aneurysmal enlargement of the ascending aorta is noted measuring 4 cm. 3. Mild biventricular cardiomegaly is present. 4. Mild bilateral hilar adenopathy is noted with lymph nodes measuring up to 1.2 cm on the right and 1 cm on the left. 5. Multiple pulmonary nodules are present in the left lower lobe measuring up to 9 mm. Comparison with any prior outside imaging is recommended. If these cannot be obtained, assessment with PET scan or biopsy of the largest nodule is recommended. CT scan - abdomen: Attestation: I have reviewed the pertinent imaging results. My impression: No evidence of bowel obstruction. Radiologist's impression: Liver: Unremarkable. Spleen: Unremarkable. Pancreas: Unremarkable. Gallbladder: Unremarkable. Kidney: Unremarkable. No kidney or ureteral stones or obstruction seen. Adrenal: Unremarkable. Bowel: Small bowel loops are present within the right ischiorectal fossa, consistent with an enterocele. No bowel obstruction is identified. Previous appendectomy noted with no significant appendiceal stump identified. Vascular: Moderate atherosclerotic calcifications of the abdominal aorta and its tributaries are present. Lymph: Unremarkable. Peritoneum: Unremarkable. No pneumoperitoneum is seen. No significant ascites is noted. Pelvis: Moderate enlargement of the prostate gland is present and impresses upon the base of the bladder. Soft tissue: Unremarkable. Bone: Unremarkable for age. IMPRESSION: 1. No CT correlate for the patient`s symptoms seen. ECG Data Attestation: I personally reviewed and interpreted this ECG as follows: ECG interpretation date: 01/26/25 Interpretation: EKG by my read shows atrial fibrillation at a rate of 84. Patient noted to have T-wave inversions in 3 and AVF. Questionable old septal infarct. QT interval within normal limits. Comparison with April 2022 this is largely unchanged. Discharge Plan Discharge Clinical Impression: Weakness Atrial fibrillation Qualifiers: Atrial fibrillation type: unspecified Qualified Code(s): I48.91 - Unspecified atrial fibrillation Clinical Impression: (Ruled Out): Acute myocardial infarction Patient Disposition: Home, Self-Care Condition: Improved Additional Instructions: Restart Eliquis 2.5 mg twice daily. Return to the ER if you have a fever, have worsening symptoms onset of new symptoms. Follow-up with Dr. Marcus. Would like you to have an outpatient echocardiogram and cardiac consult at the [facility] for your atrial fibrillation. Prescriptions: No Action fluticasone propionate 50 mcg/actuation spray,suspension 1 spray intranasal BID Qty: 16 2RF Rx Instructions: administer into each nostril sennosides-docusate sodium [Stool Softener-Laxative] 8.6-50 mg Tablet 1 tab PO BID Qty: 90 0RF tramadol 50 mg Tablet 50 - 100 mg PO Q6H PRN (Reason: Pain) Qty: 10 0RF Eliquis 5 mg tablet 5 mg PO BID Qty: 60 2RF metoprolol tartrate 25 mg tablet 12.5 mg PO BID Qty: 90 3RF amoxicillin-pot clavulanate [Augmentin] 250-62.5 mg/5 mL suspension for reconstitution 10 ml PO TID Qty: 150 0RF Rx Instructions: finish three days of antibiotics; three doses each day Follow Up/Referrals: Lisa Marcus MD [Primary Care Provider, Family Practice] Stand Alone Forms: [employer]adio Info Instructions
--- NOTE | 2025-01-26 15:22 | CRLHL7_ITS ---
For Patients: As a result of the Century Cures Act, medical imaging exams and procedure reports are released immediately into your electronic medical record. You may view this report before your referring provider. If you have questions, please contact your health care provider. INDICATION: Chest pain. TECHNIQUE: Chest 1 views. COMPARISON: X-ray chest April 20, 2022 FINDINGS/IMPRESSION: No patchy consolidation, effusion or pneumothorax. Cardiac size is within normal limits without pulmonary edema. Dictated by Anil Flowers MD @ 01/26/2025 3:58:03 PM (Electronically Signed)
--- OUTSIDE RECORDS SUMMARY | 2025-01-26 15:27 | XMS_ITS | Clinical Summary ---
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 Active 04/27 Kofi Brown MD Median neuropathy Muscle weakness [id number] (SNOMED CT) 12/18 Active 12/18 Jared Aponte MD Muscle weakness Neuropathy [id number] (SNOMED CT) Active Ela Gomez MD Neuropathy LEG CRAMPS [id number] (SNOMED CT) 06/17 Active 06/17 Femi Connolly MD Cramp in lower limb Medications Medication Instructions Start Date Stop Date Generic Name [facility] Provider VITAMIN D 1000 IU daily VITAMIN [...] AMPHIPHYS AB * Amphiphy sin Ab, S KILN STACKER-2 * Purkinje Cell Cytoplasmic Ab Type 2 KILN STACKER-1 * Purkinje Cell Cytoplasmic Ab Type 1 [...] Procedures Code Procedure Name Date Entry Date CPT-04870 Nerve Conduction 13 or more studies 04/27 CPT-75652 EMG with NCS (5+ muscles) - 2 limbs 04/27 CPT-70151 Thoracic PS (T3-11) CPT-59685 Nerve Conduction 9-10 studies CPT-06937 EMG with NCS (5+ muscles) - 2 limbs 01/18 CPT-52296 Sensory NCS x 2 CPT-87301 Motor NCS x 4 CPT-25766 EMG 2 limb Vital Signs Date Name [...]
[2025-01-26 15:37] LABS: Lactate* 1.5 mmol/L (0.5-1.9)
[2025-01-26] MEDS: 0.9 % SODIUM CHLORIDE 500 ML 500 ML IV (15:40)
[2025-01-26 15:45] LABS: Hematocrit* 39.2 % (37.0-53.0); Hemoglobin* 12.9 gm/dL (13.5-17.5); Immature Granulocytes Abs Auto 0.07 K/uL (0.00-0.30); Immature Granulocytes Pct Auto 0.9 %; Lymphocytes Absolute Auto 1.63 K/uL (0.90-2.90); Mean Corpuscular HGB Conc 33 gm/dL (32-36); Mean Corpuscular Hemoglobin 29 pg (26-34); Mean Corpuscular Volume 89 fL (80-100); RDW Coefficient of Variation % 13.7 % (11.5-15.5); Red Blood Count* 4.39 m/uL (4.30-5.90); White Blood Count* 7.39 K/uL (4.50-11.00)
[2025-01-26 15:46] LABS: Slide Review Reflex No
[2025-01-26 15:47] LABS: Troponin, Point-of-Care* 0.01 ng/ml (0.01-0.04)
[2025-01-26 15:55] LABS: Albumin* 4.2 g/dL (3.3-5.0); Chloride* 102 mmol/L (96-114); Potassium* 4.0 mmol/L (3.6-5.1); Sodium* 135 mmol/L (135-149)
[2025-01-26 15:55] LABS: PCR FLU A Negative PCR FLU A (Negative); PCR FLU B Negative PCR FLU B (Negative); PCR RSV Negative PCR RSV (Negative); SARS PCR* Negative SARS-CoV-2 (Negative)
[2025-01-26 15:58] LABS: Alanine Aminotransferase* 19 U/L (4-50); Alkaline Phosphatase* 80 U/L (40-150); Anion Gap 5 mEq/L (7-15); Aspartate Amino Transferase* 36 U/L (12-35); Bilirubin Total* 0.9 mg/dL (0.1-1.5); Blood Urea Nitrogen* 17 mg/dL (7-30); Calcium* 9.6 mg/dL (8.4-10.6); Carbon Dioxide* 28 mmol/L (20-32); Creatinine* 1.0 mg/dL (0.5-1.5); Est. Creatinine Clearance* 58.20; Estimated Glomerular Filt Rate 73 ml/min; Glucose* 123 mg/dL (60-115); Total Protein* 7.4 g/dL (6.0-8.3)
--- NOTE | 2025-01-26 16:11 | CRLHL7_ITS ---
For Patients: As a result of the Century Cures Act, medical imaging exams and procedure reports are released immediately into your electronic medical record. You may view this report before your referring provider. If you have questions, please contact your health care provider. INDICATION: Shortness of breath on exertion, weakness TECHNIQUE: CT chest with i.v. contrast using pulmonary angiographic technique. MIPS, coronal and sagittal reformats were obtained. CONTRAST: 95 mL Isovue 370 COMPARISON: None FINDINGS: Cardiovascular: The pulmonary arteries are unremarkable in enhancement with no evidence of acute pulmonary embolism. Mild biventricular cardiomegaly is present. Mild aneurysmal enlargement of the ascending aorta is noted measuring 4 cm. Mediastinum: Mild bilateral hilar adenopathy is noted with lymph nodes measuring up to 1.2 cm on the right and 1 cm on the left. Lung: There are 2 nodules along the left major fissure measuring up to 9 mm. A nodule is seen in the left lower lobe measuring 6 mm on image 170, series 5. An adjacent nodule along the base of the left lower lobe is noted on image 180 measuring 9 mm. Pleura and pericardium: No sign of pleural effusion seen. No significant pericardial effusion is present. Chest wall and axilla: No mass or adenopathy seen. Bone: Unremarkable for age. IMPRESSIONS: 1. No CT evidence of acute pulmonary emboli seen. 2. Mild aneurysmal enlargement of the ascending aorta is noted measuring 4 cm. 3. Mild biventricular cardiomegaly is present. 4. Mild bilateral hilar adenopathy is noted with lymph nodes measuring up to 1.2 cm on the right and 1 cm on the left. 5. Multiple pulmonary nodules are present in the left lower lobe measuring up to 9 mm. Comparison with any prior outside imaging is recommended. If these cannot be obtained, assessment with PET scan or biopsy of the largest nodule is recommended. Dictated by Johnie Naidu MD @ 01/26/2025 6:16:33 PM Please note that all CT scans at this facility use dose modulation, iterative reconstruction, and/or weight-based dosing when appropriate to reduce radiation dose to as low as reasonably achievable. Dictated by: Johnie Naidu MD @ 01/26/2025 18:16:37 (Electronically Signed)
--- NOTE | 2025-01-26 16:12 | CRLHL7_ITS ---
For Patients: As a result of the Cures Act, medical imaging exams and procedure reports are released immediately into your electronic medical record. You may view this report before your referring provider. If you have questions, please contact your health care provider. INDICATION: Weakness, abdominal pain TECHNIQUE: CT Abdomen and pelvis with i.v. contrast. Coronal and sagittal reformats were obtained. CONTRAST: 95 mL Isovue 370 COMPARISON: 04/17/2022 FINDINGS: Liver: Unremarkable. Spleen: Unremarkable. Pancreas: Unremarkable. Gallbladder: Unremarkable. Kidney: Unremarkable. No kidney or ureteral stones or obstruction seen. Adrenal: Unremarkable. Bowel: Small bowel loops are present within the right ischiorectal fossa, consistent with an enterocele. No bowel obstruction is identified. Previous appendectomy noted with no significant appendiceal stump identified. Vascular: Moderate atherosclerotic calcifications of the abdominal aorta and its tributaries are present. Lymph: Unremarkable. Peritoneum: Unremarkable. No pneumoperitoneum is seen. No significant ascites is noted. Pelvis: Moderate enlargement of the prostate gland is present and impresses upon the base of the bladder. Soft tissue: Unremarkable. Bone: Unremarkable for age. IMPRESSION: 1. No CT correlate for the patient`s symptoms seen. Dictated by Johnie Naidu MD @ 01/26/2025 6:18:11 PM Please note that all CT scans at this facility use dose modulation, iterative reconstruction, and/or weight-based dosing when appropriate to reduce radiation dose to as low as reasonably achievable. Dictated by: Johnie Naidu MD @ 01/26/2025 18:22:06 (Electronically Signed)
[2025-01-26 16:30] LABS: Appearance Urine Clear (Clear)
[2025-01-26 19:10] LABS: Troponin, Point-of-Care* 0.00 ng/ml (0.01-0.04)
== END 2025-01-26 20:15 | disposition home or self-care (01) ==
PROVIDERS: Emergency Provider Family Medicine; PCP Family Medicine
DX: I48.91 Unspecified atrial fibrillation (principal); R07.89 Other chest pain; R53.1 Weakness; R10.9 Unspecified abdominal pain; R06.02 Shortness of breath; R91.8 Other nonspecific abnormal finding of lung field
CPT/HCPCS: 36415; 71045; 71275; 74177; 80053; 81001; 83605; 83690; 84484; 85025; 86140; 87040; 87631; 94761; 99284; 99285; J7030; Q9967

== ENCOUNTER 2025-03-31 08:51 | Emergency (ER) | payer MEDICARE, OTHER, SELFPAY ==
--- OUTSIDE RECORDS SUMMARY | 2025-03-31 08:54 | XMS_ITS | Clinical Summary ---
Author Organization [facility] Address [address] [place] [id number] Care Team Providers Care Grocery Checker Name Role Phone Christian Washington MD, Kayden Couch Unavailable [phone] Lisa Smith MD Primary Care Prov ider Milena March RN, BSN Unavailable Unavailab Oc Ernst MD Unavailable [phone] Allergies No known active allergies Medications MedicationSigDispense QuantityRefillsLast FilledStart DateEnd DateStatus MULTIVITAMIN TAB ctive cholecalciferol (VITAMIN D) 1,000 unit tablet Take 1 tablet by mouth once daily.ctive docusate (COLACE) 100 mg capsule Take 1 Capsule (100 mg) by mouth 2 times daily if needed for Constipation.0 3Active calcium carbonate (TUMS ORAL) Take by mouth.Active ascorbic acid chewable (Vitamin C) 250 mg chew Chew 250 mg by mouth once daily.Active nitroglycerin 0.4 mg sublingual tablet Indications:Chest pain, unspecified typePlace 1 Tablet (0.4 mg) under the tongue every 5 minutes if needed for Chest Pain. Up to 3 tablets in 15 minutes. 25 Tablet 5Active apixaban (ELIQUIS) 5 mg tablet Indications:Atrial fibrillation, unspecified type (HC)Take 1 Tablet (5 mg) by mouth two times daily.5Active clopidogreL (PLAVIX) 75 mg tablet Indications:Arteriosclerotic heart disease (ASHD)Take 1 Tablet (75 mg) by mouth once daily. Take for 1 year 30 Tablet 1115Active apixaban (ELIQUIS) 5 mg tablet Indications:Atrial fibrillation, unspecified type (HC)Take 1 Tablet (5 mg) by mouth two times daily. 60 Tablet 310Discontinued nitroglycerin 0.4 mg sublingual tablet Indications:Preprocedural cardiovascular examinationPlace 2 Tablets (0.8 mg) under the tongue one time.Discontinued(*Med complete/Regimen complete/Level of care change) NaCl 0.9% IV solution Indications:Preprocedural cardiovascular examinationInject 500 mL intravenous one time.Discontinued(*Med complete/Regimen complete/Level of care change) rosuvastatin (CRESTOR) 20 mg tablet Indications:Coronary artery disease, unspecified vessel or lesion type, unspecified whether angina present, unspecified whether andreafski or transplanted heartTake 1 Tablet (20 mg) by mouth at bedtime. 90 Tablet Discontinued(Pharmacist change per medication history (E- cancel not sent)) clopidogreL (PLAVIX) 75 mg tablet Indications:Arteriosclerotic heart disease (ASHD)Take 1 Tablet (75 mg) by mouth once daily. Take for 1 year 90 Tablet Discontinued rosuvastatin (CRESTOR) 10 mg tablet Indications:Arteriosclerotic heart disease (ASHD)Take 1 Tablet (10 mg) by mouth at bedtime. 30 Tablet Discontinued(*IP Discontinued) Active Problems ProblemNoted DateDiagnosed DateArteriosclerotic heart disease (ASHD)03/30/2025 Overview (03/30/2025): - VANESSA x 2 to prox LAD Xuhfemtsgmqazm33/19/2025Nonrheumatic tricuspid valve fzirjtulmkeyy44/19/2025 Atrial qiiqtgervgxe16/29/2025Pulmonary nodule seen on imaging study02/07/2025PAD (peripheral artery disease)08/20/2025Occlusion of artery of leg06/18/2024Finger dnlkxsi6709/08/2023ramps, muscle, gbapqig2201/04/2014Impaired fasting glucose 01/04/2014DDD (degenerative disc disease), ricuhk4501/04/2014DDD (degenerative disc disease), laadaqui92/25/2014Hearing loss06/08/2013Colon polyp07/17/2011 Overview (03/08/2017): Colonoscopy 07/2011 polyp repeat in 5 years Colonoscopy 02/2017 polyp repeat in 5 years Back pain06/23/2010Elevated CK06/23/20100025Whvxqbzdwe21/14/2011Myalgia and myositis, dwowqjcjegn75/24/2011 Resolved Problems ProblemNoted DateDiagnosed DateResolved DateParoxysmal atrial fibrillation Encounters DateTypeDepartmentCare SumwXlyssiijvqp94/19/2025 9:09 AM TAX MANAGER CPA - 03/30/2025 8:30 PM CSTHospital Encounter [facility] [address] [place] [address] Rayna Ma MD Arteriosclerotic heart disease (ASHD) (Primary Dx); Cardiovascular symptoms; Atrial fibrillation, unspecified type (HC) Discharge Disposition: Home Self Care03/30/20252345Upfprs89/16/2025 12:06 PM TAX MANAGER CPA Anesthesia Event [facility] [address] [place] [address] Maxi Borges CRNA 03/26/2025Telephone [facility] [address] [place] [address] Nato Velasquez, Aamir OTHER (Hearing Aid Repair)03/22/2025Telephone [facility] [address] [place] [address] Lisa Smith MD Error-please wlkvqxcyq59/04/2025Telephone [facility] [id number] [place] [address] [address] [place] [address] Priya Patterson PA Medication Management (Rosuvastatin; Nitroglycerin)03/14/2025 10:30 AM TAX MANAGER CPA Ancillary Procedure [facility] [address] [place] [address] 03/14/2025 10:00 AM CSTOrders Only [facility] [address] [facility] [place] [address] [place] [address] Lab03/14/20256763Kitovk46/02/2025Orders Only [facility] Scanner 1 scan: (1-Ord) INCOMING RECORDS-EKG, [facility], 5105/14/2024 Orders Only [facility] Scanner 1 scan: (1-Ord) INCOMING RECORDS-CT, [facility], Orders Only [facility] Scanner 1 scan: (1-Ord) INCOMING RECORDS-LABS, [facility], 10:40 AM CSTOffice Visit [facility] [address] [place] [address] Oc Hutton MD 03/05/2025 3:15 PM CSTAncillary Procedure [facility] [address] [place] [address] 03/05/20251963Xwskje74/21/2025 8:00 AM CSTOffice Visit [facility] [address] [facility] [address] [place] [address] Priya Patterson PA Consult (Consult w/ Echo prior- under scans. /Pt states feeling )03/02/2025 Cndhtr3202/22/2025Telephone [facility] [address] [place] [address] Oncology, [facility] Referral ( 8mm nodule or Lung RAD 4 finding)02/21/2025Telephone [facility] [address] [place] [address] Lisa Smith MD Error-please ptsgwqboe95/12/2025Telephone [facility] [address] [place] [address] Lisa Smith MD 02/19/2025 2:00 PM CSTAncillary Procedure [facility] [address] [facility] [place] [address] 02/19/20251113Tkgpxx50/06/2025 8:02 AM TAX MANAGER CPA - 02/15/2025 11:59 PM CSTHospital Encounter [facility] [address] [place] [address] Lisa Smith MD Pulmonary nodule seen on imaging study02/14/2025 11:00 AM CSTOffice Visit [facility] [address] [facility] [place] [address] Nato Velasquez, AuD Hearing Aid02/14/20252662Opwrms12/29/2025 11:10 AM CDTOffice Visit [facility] [address] [place] [address] Lisa Smith MD [facility] F/ 8:00 AM CDTNurse/Clinic Staff Only [address] [place] [address] 02/07/20251473Aczlit24/17/2025 9:30 AM CDTOffice Visit [facility] [address] [place] [address] Nato Velasquez, AuD Hearing Aid01/26/2025Orders Only [facility] Scanner 1 scan: (1-Ord) PERRY, ABDOMEN PELVIS W CON, Orders Only [facility] Scanner 1 scan: (1-Ord) PERRY, ANGIO CHEST PE PROTOCOL , Orders Only [facility] Scanner 1 scan: (1-Ord) PERRY, XR CHEST 1 PORTABLE, Nurse Triage [facility] Centralized Nurse Triage Lisa Smith MD Breathing Zjcixqk7601/26/2025Travelfrom Last 3 Months Immunizations ImmunizationAdministration DatesNext DueAMB INFLUENZA IIV3 (AGE 65+ YRS) PF (Flu Clinic Only)02/13/2017AMB Influenza, IIV4 PF (=>6 mos Flulaval,Fluzone Fluarix)(Flu Clinic Only)02/09/2019Amb Influenza, Inact (High-dose) (Flu Clinic Only)02/24/2016,01/02/2014COVID-19 VACCINE COMIRNATY (eSentire 30MCG/0.3ML) 12YO+ PFS4COVID-19 vaccine (Moderna 50mcg/0.5mL) 12YO+ BIVALENT PF, MDV13COVID-19 vaccine (Thotz 30mcg/0.3mL) 12YO+ ERIKA-SUCROSE PF, MDV2COVID-19 vaccine (Thotz 30mcg/0.3mL) PF, MDV07/22/2021,06/25/2020,06/04/2020Influenza A (H1N1), Srhftosvncq42/20/2010 Influenza A (H1N1), Inactivated (Age >=3 Years)05/01/2009Influenza Virus, Qhndiuwxamc62/24/2023,05/01/2009,03/24/2006,02/04/2004,02/23/2003Influenza, High-dose Mfhdqwlcmfx88/30/2025,01/03/2024,05/16/2018,02/24/2016,01/18/2015, 01/02/2014Influenza, High-dose Quadrivalent Uonagbhwncr72/24/2023,01/21/2022, 12/19/2020Influenza, IIV3 (Age 6-35 mos)02/03/2012,05/01/2009Influenza, IIV3 (Age >=3 years)03/07/2013,06/26/2011,05/23/2010,05/01/2009,03/21/2007,03/24/2006 ,02/04/2004,02/23/2003Pneumococcal Conj 20-valent (Prevnar 20)02/10/2023 Pneumococcal Poly,23-Valent (Pneumovax)06/23/2004Pneumococcal conj 13-Valent (Prevnar 13)02/25/2015RSV, Recombinant ADJ Reconstituted (Arexvy 120MCG/0.5mL) 02/10/2023Td (Age >=7 Years)06/23/2004Tdap10/21/2021,06/26/2011Zoster (Shingrix- RZV, recombinant)03/25/2021,12/19/2020Zoster (Zostavax-ZVL, live)05/23/2010 Family History Medical HistoryRelationNameCommentsOtherBrother 1ALSOtherBrother 2ALSOther Brother 3mvaGood HealthBrother 4Good HealthBrother 5CancerBrother 6Not sure what typeHeart DiseaseBrother 1FxkgakWjgosa30uMuqwjYtraarukoxhxlpa, at age 54 DiabetesOther 1noneCancerOther 2noneGood HealthSister 1Good HealthSister 2Good HealthSister 3Good HealthSister 4Good HealthSister 5Good HealthSister 6Good HealthSister 7RelationNameStatusCommentsBrother 1DeceasedBrother 2Deceased Brother 3DeceasedBrother 4AliveBrother 5AliveBrother 6AliveFatherMotherOther 1 Other 2Sister 1AliveSister 2AliveSister 3AliveSister 4AliveSister 5AliveSister 6 AliveSister 7Alive Social History Tobacco UseTypesPacks/DayYears UsedDateSmoking Tobacco: UvdloiVhqgohdtdd5Csmi: 04/12/1959mokeless Tobacco: Never Tobacco Cessation:Counseling Given: Not Answered Comments:5 pack years Alcohol UseStandard Drinks/WeekCommentsNo0 (1 standard drink = 0.6 oz pure alcohol)PHQ-2AnswerDate RecordedPHQ-2 TOTAL KLFYF743Social Connections AnswerDate RecordedDo you often feel lonely or isolated from those around you?0 11/29/2024Financial Resource StrainAnswerDate RecordedDifficulty of Paying Living Zlipcwjy163/20/2025Difficulty of Paying Living ExpensesNot on file 11/29/2024Food InsecurityAnswerDate RecordedDo you worry your food will run out before you are able to buy more?Transportation NeedsAnswerDate RecordedDoes lack of transportation keep you from medical appointments?1 11/29/2024Does lack of transportation keep you from work, meetings or getting things that you need?Housing StabilityAnswerDate RecordedWhat is your housing situation today?Interpersonal SafetyAnswerDate RecordedAre you being hit, kicked, pushed or yelled at (see row info)?No03/30/2025 Interpersonal Safety Abuse 12 - 18Not on file03/30/2025Interpersonal Safety Ambulatory VulnerabilityNot on file03/30/2025UtilitiesAnswerDate RecordedDo you have trouble paying for utilities (for example, heat, electricity, water, phone)?Sex and Gender InformationValueDate RecordedSex Assigned at BirthNot on fileLegal QvjWkcp2304/25/2012 5:20 AM CSTGender IdentityNot on file Sexual OrientationNot on fileOccupationIndustryJob Start DateJob End Date 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--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 on fileNot on fileNot on file Last Filed Vital Signs Vital SignReadingTime TakenCommentsBlood Ykqbzehw339/9803/30/2025 8:00 PM TAX MANAGER CPA Gjanr949103/30/2025 8:00 PM MIIDjluuguboaa34.9 ??C (96.6 ??F)03/30/2025 4:02 PM CSTRespiratory Mpnd914805/31/2024 6:00 PM CSTOxygen Qaefnutslm95%03/30/2025 8:00 PM CSTInhaled Oxygen Concentration--Lbabgy93.6 kg (171 lb)03/30/2025 10:18 AM XSYNlezcl644.9 cm (6')03/30/2025 10:18 AM CSTBody Mass Index23.19105/31/2024 10:18 AM TAX MANAGER CPA Plan of Treatment DateTypeDepartmentCare Team (Latest Contact Info)Xywfwcnpirn57/27/2026 2:30 PM CSTOffice Visit [facility] [address] [place] [address] Aneesh Winston MD [address] [facility] [address] [place] [address] Health MaintenanceDue DateLast DoneCommentsCOVID-19 vaccine series (2024- season)509/, 02/02/2023, 02/02/2023, Additional history exists Depression screening for age 12+, 09/08/2023, 09/08/2023, Additional history existsMedicare Wellness for age 65+/, 09/08/2023, 07/29/2022, Additional history existsBMI (ht and wt on same day) for age 18+, 03/02/2025, 11/29/2024, Additional history exists Tetanus jmwmahy92/03/2022, 06/26/2011, 06/23/2004Zoster (shingles) series for age 50+Wetqbdyoy20/14/2021, 12/19/2020, 05/23/2010Pneumococcal series for age 50+Cpvjzftrt23/01/2023, 02/25/2015, 06/23/2004RSV vaccine for adults or xkjzkiqtgAhpnqwmjd76/01/2023Influenza IwskkbpPlckhyrnq24/30/2025, 01/03/2024, 02/02/2023, Additional history existsHepatitis B series for 19+Aged OutNo longer eligible based on patient's age to complete this topic Procedures Procedure NamePriorityDate/TimeAssociated DiagnosisCommentsCVL CORONARY ANGIOGRAM POSS WWKGzlzonw90/19/2025 2:26 PM TAX MANAGER CPA Cardiovascular symptoms EKG 12 WKZCIHHX88/19/2025 10:27 AM TAX MANAGER CPA CBC W PLT NO YPZHSJBK20/19/2025 10:25 AM TAX MANAGER CPA BASIC METABOLIC KMLHLSBXZ49/19/2025 10:25 AM TAX MANAGER CPA CBC WITH AUTO FBQOBAMDLVTPEnagtwn31/03/2025 11:55 AM TAX MANAGER CPA Atrial fibrillation, unspecified type (HC) Preprocedural cardiovascular examination CBC WITH AUTO KNPZIHCIDUZVBksjyas09/03/2025 11:55 AM TAX MANAGER CPA Atrial fibrillation, unspecified type (HC) Preprocedural cardiovascular examination CT CARDIAC CORONARY ARTERIES CV DUAL PLFNQwmwkgv33/03/2025 10:52 AM TAX MANAGER CPA Atrial fibrillation, unspecified type (HC) CT CARDIAC CORONARY ARTERIES RAD DUAL EJJNWoqmjnf89/03/2025 10:52 AM TAX MANAGER CPA Atrial fibrillation, unspecified type (HC) LIPID SMZXZXypgmmv06/03/2025 9:45 AM TAX MANAGER CPA Atrial fibrillation, unspecified type (HC) Hyperlipidemia, unspecified hyperlipidemia type Preprocedural cardiovascular examination TSH WITH YOIMJOEwblpli02/03/2025 9:45 AM TAX MANAGER CPA Atrial fibrillation, unspecified type (HC) CREATININE,GBIFPXcpubbd90/03/2025 9:45 AM TAX MANAGER CPA Preprocedural cardiovascular examination SCAN CORRESP-EKG BPXRYGA7503/13/2025 12:00 AM TAX MANAGER CPA SCAN CORRESP-LABORATORY ORSQKBW0603/13/2025 12:00 AM TAX MANAGER CPA SCAN CORRESP-ONWLJPI2003/13/2025 12:00 AM TAX MANAGER CPA US THYROID/FHIUSVFGULSBbwyikv51/24/2025 3:37 PM TAX MANAGER CPA Abnormal finding on imaging EKG 12 DFJVSmqwu91/21/2025 9:11 AM TAX MANAGER CPA Atrial fibrillation, unspecified type (HC) ECHO TTE COMPLETE WO KPYKPMCHYetowxd23/10/2025 2:43 PM TAX MANAGER CPA Atrial fibrillation, unspecified type (HC) PET CT SKULL BASE TO MID THIGH INITIAL TAJBMSaedaxi30/06/2025 9:37 AM TAX MANAGER CPA Pulmonary nodule seen on imaging study EXTENDED FMHJLBQknotah46/29/2025 Atrial fibrillation, unspecified type (HC) SCAN-CT JJEKNBDAFHRCUI27/17/2025 12:00 AM CDTSCAN-CT EZIDNCLSXSXOXV15/17/2025 12:00 AM CDTSCAN-RADIOLOGY HLYZXX5201/26/2025 12:00 AM CDT from Last 3 Months Results * CVL CORONARY ANGIOGRAM POSS PCI (03/30/2025 2:26 PM TAX MANAGER CPA)Anatomical Region LateralityModalityX-Ray Angiography, X-Ray AngiographySpecimen (Source) Anatomical Location / LateralityCollection Method / VolumeCollection Time Received Time03/30/2025 2:26 PM TAX MANAGER CPA Narrative Transcriptions Rayna Ma MD - 03/30/2025 4:01 PM CST [facility] Cardiac Catheterization Report Name: JAYSON TAO Event Date: 03/30/2025 14:26 [facility] ID #: [id number] JACKI #: [id number] Patient Class: Outpatient Diagnostic Physician: RAYNA MA [facility] Interventional Physician: RAYNA MA [facility] Referring Physician: Date: 1940 Gender: Male Age: 84 Summary/Conclusions PRESENTATION / INDICATIONS * Dyspnea, fatigue, abnormal coronary CTA, atrial fibrillation, tricuspid regurgitation. DIAGNOSTIC - CORONARY * The left main artery has mild disease. * The LAD is contains severe proximal and mid lesions. * The circumflex artery has moderate proximal disease. * The RCA is dominant with mild disease. VASCULAR ACCESS * Using ultrasound guidance and a percutaneous technique, the right radialartery was accessed. Ultrasound was used to confirm vessel patency,localizing needle into the lumen of the vessel. An image was saved for themedical record. INTERVENTION ? Successful IVUS guided 3mm x 15mm Balloon, 3mm x 26mm Drug ElutingStent, and 3.5mm x 8mm Balloon to Proximal LAD, post stenosis 0% ? Successful 3mm x 18mm Balloon, and 3.5mm x 8mm Balloon to Mid LAD, post stenosis 0% ? The RFR across the proximal circumflex was normal at 1.0 (nointervention indicated) RECOMMENDATIONS & PLAN * Optimize risk factors and medications * Plavix for 1 year Consent & Ramer Protocol The risks, benefits, and alternatives of the procedure were discussed withthe patient and written informed consent was obtained. Ramer protocol was followed. TIME OUT conducted just prior tostarting procedure confirmed patient identity, site/side, procedure,patient position, and availability of correct equipment and implants (ifapplicable). Staff Name Title RAYNA MA Diagnostic Medical Appointment Scheduler Ruth Ramos RN Nurse Tee, Rambo CVT Scrub Radha Negro CVT Monitor Geoffrey Grimes CVT Monitor Crow Bravo Fellow RAYNA MA White Hat Hacker Procedures ? Ultrasound Guided Vascular Access ? Coronary Angiogram ? Coronary Ultrasound ? Coronary Fractional Flow Measurement ? Stent Placement, Drug Eluting [PCI] Diagnostic Findings * Left Main Coronary Artery ? 20% stenosis in the LMCA. * Left Anterior Descending ? 80% (denovo) stenosis in the Proximal LAD. The lesion has a SALLIE flowof 3. ? 70% (denovo) stenosis in the Mid LAD. The lesion has a SALLIE flow of3. ? 20% stenosis in the Distal LAD. * Circumflex ? 50% stenosis in the Proximal Circumflex. * Right Coronary Artery ? 20% stenosis in the Proximal RCA. Lesion Information Lesion # Vessel Segment Lesion Length Lesion Details Distal LAD Proximal RCA Proximal Circumflex LMCA 1 Proximal LAD 19 2 Mid LAD 11 Hemodynamics State: Baseline Pressures (mmHg) Site Systolic Diastolic End Diastolic A Wave V Wave Mean AO 140 81 104 Interventional Results * Left Anterior Descending ? Successful intervention to the Proximal LAD 80% lesion with a finalstenosis of 0% using a IVUS, 3mm x 15mm Balloon, 3.5mm x 8mm Balloon,3mm x 18mm Drug Eluting Stent, and a 3mm x 26mm Drug Eluting Stent. Thefinal SALLIE flow was 3. ? Successful intervention to the Mid LAD 70% lesion with a finalstenosis of 0% using a 3mm x 18mm Drug Eluting Stent, 3mm x 18mmBalloon, and a 3.5mm x 8mm Balloon. The final SALLIE flow was 3. Interventional Devices Lesion # Vessel Segment Type Name Max Pressure 1 Proximal LAD Drug Eluting Stent VANESSA CHANDA [place] RX 3.4teQ93nn 1 Proximal LAD IVUS CATH 6F Opticross IVUS 1 Proximal LAD Balloon BLLN [place] RX 3.5uee70vm 1 Proximal LAD Balloon BLLN [place] RX 3.5MM X 8MM 2 Mid LAD Balloon BLLN [place] RX 3.5MM X 8MM 2 Mid LAD Drug Eluting Stent VANESSA CHANDA [place] [facility] 3.1yvB88gu 2 Mid LAD Balloon VANESSA CHANDA [place] RX 3.4cwM48bz Procedure Details Estimated Blood Loss: < 30 ml Specimen Collected: None Level of Sedation Achieved: Moderate Procedure Start: 14:26 Procedure End: 15:38 Procedure Time: 72 min Fluoroscopy Time: 18.3 min Cumulative Air Kerma: 930 mGy DAP: 4750 uGy/M2 Contrast: Omnipaque (low-osmolar), 115 ml Physiologic Data Weight: 77.6 kg BSA: 1.99 m2 Vascular Access Time Access Sheath Size 14:29 Right Radial Artery, sheath inserted Complications ? No Complications Medications Ordered and Administered Start Time Stop Time Medication Dose Units Route Ordered By Given By 14:26 Fentanyl 50 mcg IV Rayna Ma Anne RN 14:26 Versed 1 mg IV Rayna Ma Anne RN 14:27 1% Lidocaine 1.5 ml Subcut Rayna Ma Ayman 14:30 Verapamil 3 mg IA Rayna Ma Ayman 14:38 Heparin 7000 units IV Rayna Ma Anne RN 14:42 Plavix 600 mg PO Rayna Ma Anne RN 14:42 Fentanyl 25 mcg IV Rayna Ma Anne RN 14:42 Versed 0.5 mg IV Rayna Ma Anne RN 14:55 Heparin 3000 units IV Rayna Ma Anne RN 15:02 Fentanyl 25 mcg IV Rayna Ma Anne RN 15:02 Versed 0.5 mg IV Rayna Ma Anne RN 15:19 Nitroglycerin 200 mcg IC Rayna Ma Ayman 15:19 Nicardipine (Cardene) 0.2 mg IC Rayna Ma Ayman 15:26 Heparin 2000 units IV Rayna Ma Anne RN I personally monitored the patient?s conscious sedation during theprocedure. Conscious sedation starts with the first sedation medication dose ofFentanyl or Versed and ends when the procedure is completed, the patientis stable for recovery status, and the physician or other qualified healthcare professional providing the sedation ends personal lkxoypcrlotzeg-zf-jjjd time with the patient. The medications listed above were verbally ordered by me and read back tome as documented above. Refer to the procedure log report for additional case details. electronically signed on 03/30/2025 4:01:00 PM with status of Final Rayna Ma MD [facility] [address] [place] [address] (p) [phone](f) Authorizing ProviderResult TypeResult StatusProvider ReferringCV IMAGINGEdited Result - Final * 12 Lead EKG (03/30/2025 10:27 AM TAX MANAGER CPA) Only the most recent of2 resultswithin the time period is included. ComponentValueRef RangeTest MethodAnalysis TimePerformed AtPathologist Signature InterpretationAtrial fibrillation with rapid ventricular response and premature ventricular complexes Rightward axis Nonspecific T wave abnormality Abnormal ECG When compared with ECG of 02-Mar-2025 09:11, PVCs now present BEYOND NOWVentricular Ihgi153OJDXEDUIQ NOWAtrial RateBPMBEYOND NOWP-R Intervalms BEYOND NOWQRS Thsktzff937eiWJZVSE YPRWW421rkODRTOP RZBPGv004cvYTLNLG NOWP [place] degreesBEYOND NOWR Hbrw71mystjrxVQJONL NOWT [place]-48degreesBEYOND NOWSpecimen (Source)Anatomical Location / LateralityCollection Method / VolumeCollection TimeReceived Time03/30/2025 10:27 AM CST03/30/2025 4:47 PM TAX MANAGER CPA Narrative [facility] - 03/30/2025 4:47 PM TAX MANAGER CPA Test Indication: pre Authorizing ProviderResult TypeResult StatusYale Keo Ma MDEKG ORDFinal ResultPerforming OrganizationAddressCity/State/ZIP CodePhone Number [facility] [place], [place] * CBC with Platelets no Differential (03/30/2025 10:25 AM TAX MANAGER CPA)ComponentValueRef RangeTest MethodAnalysis TimePerformed AtPathologist SignatureWHITE BLOOD COUNT8.34.5 - 11.0 thou/cu mm03/30/2025 10:[address]ORYRED BLOOD COUNT4.794.30 - 5.90 mil/cu mm03/30/2025 10:47 AM [facility] IUZTREULLSLTGRRSUJXR25.013.5 - 17.5 g/dL 03/30/2025 10:47 AM [facility] LABORATORYHEMATOCRIT 42.737.0 - 53.0 %03/30/2025 10:47 AM [facility] IGSDHFGBXMLTF9442 - 100 fL03/30/2025 10:[address] [facility] LJFSBPWWDUTFS63.226.0 - 34.0 pg03/30/2025 10:47 AM [facility] BEJZQTSPYIVKEN77.832.0 - 36.0 g/dL03/30/2025 10:47 AM [facility] TFNNCRRYNDKKL15.611.5 - 15.5 %03/30/2025 10:47 AM [facility] LABORATORYPLATELET PJYXZ514440 - 440 thou/cu mm03/30/2025 10:47 AM [facility] FYASISANSBQRC95.26.5 - 11.0 fL03/30/2025 10:[address] [facility] LABORATORYNRBC0.0%03/30/2025 10:[address]ORATORYABS NRBC0.0thou /cu mm03/30/2025 10:47 AM [facility] LABORATORYSpecimen (Source)Anatomical Location / Laterality Collection Method / VolumeCollection TimeReceived TimeBloodBLOOD SPECIMEN / UnknownCapillary / Oguxmzp3403/30/2025 10:25 AM CST03/30/2025 10:34 AM TAX MANAGER CPA Narrative [facility] - 03/30/2025 10:47 AM TAX MANAGER CPA If not done within past 14 days. Nurse to release order. Authorizing ProviderResult TypeResult StatusYale Keo Ma MDHEMATOLOGYFinal ResultPerforming OrganizationAddressCity/State/ZIP CodePhone Number [facility] [address] [place] [phone], * (ABNORMAL) Basic Metabolic Panel (03/30/2025 10:25 AM [facility] [facility])ComponentValueRef RangeTest MethodAnalysis TimePerformed AtPathologist [id number] - 145 mmol/L105/31/2024 11:08 AM [facility] POTASSIUM3.83.5 - 5.1 mmol/L105/31/2024 11:08 AM [facility] IOLLPZBSHZHCWDPGHL38772 - 107 mmol/L105/31/2024 11:08 AM [facility] LABORATORYCO2,FRMFJ5690 - 29 mmol/L105/31/2024 11:08 AM [facility] LABORATORYANION GAP95 - 18105/31/2024 11:08 AM [facility] TPEEQOEICWYIMHRBN245(H)70 - 99 mg/dL03/30/2025 11:08 AM [facility] LABORATORYCALCIUM 9.38.8 - 10.4 mg/dL03/30/2025 11:08 AM [facility] LABORATORYComment: Reference ranges for this test were updated on 02/15/2024 to reflect our healthy population more accurately. Reference range changes are not retroactively applied to results, but previous results using the same methodology can be interpreted in the context of the new reference range. AMQ018 - 23 mg/dL03/30/2025 11:08 AM [facility] LABORATORYCREATININE1.180.70 - 1.20 mg/dL03/30/2025 11:08 AM [facility]ORATORYBUN/CREAT HCIGB4046 - 11:08 AM [facility] UIMEACDOKEdBCE42(L)>90 mL/min/1.71i04103/30/2025 11:08 AM [facility] LABORATORYComment:As of 06/24/2021, eGFR is calculated by the CKD-EPI creatinine equation without race adjustment. ??eGFR can be influenced by muscle mass, exercise, and diet. ??The reported eGFR is an estimation onlyand is only applicable if the renal function is stable. Specimen (Source)Anatomical Location / LateralityCollection Method / Volume Collection TimeReceived TimeBloodBLOOD SPECIMEN / UnknownCapillary / Unknown 03/30/2025 10:25 AM CST03/30/2025 10:38 AM TAX MANAGER CPA Narrative Authorizing ProviderResult TypeResult StatusYale Keo Ma MDCHEMISTRYFinal ResultPerforming OrganizationAddressCity/State/ZIP CodePhone Number [facility] [address] [place] [phone], * (ABNORMAL) CBC WITH AUTO DIFFERENTIAL (03/14/2025 11:55 AM TAX MANAGER CPA)ComponentValue Ref RangeTest MethodAnalysis TimePerformed AtPathologist SignatureWHITE BLOOD CELL COUNT6.03.8 - 10.8 Thousand/uL03/14/2025 12:14 PM [facility] LABRED BLOOD CELL COUNT3.90(L)4.20 - 5.80 Million/uL03/14/2025 12:14 PM [facility] LAB LXFNKUYHYL75.5(L)13.2 - 17.1 g/dL03/14/2025 12:14 PM [facility] EFCDBIMBLRLDX31.9(L)39.4 - 51.1 %03/14/2025 12:14 PM [facility] CGYPDV74.581.4 - 101.7 fL 03/14/2025 12:14 PM [facility] USZJOI69.5 27.0 - 33.0 pg03/14/2025 12:14 PM [facility] FGUSFVZ08.031.6 - 35.4 g/dL03/14/2025 12:14 PM [facility] LABComment: For adults, a slight decrease in the calculated MCHC value (in the range of 30 to 32 g/dL) is most likely not clinically significant; however, it should be interpreted with caution in correlation with other red cell parameters and the patient's clinical condition. RDW14.211.0 - 15.0 %03/14/2025 12:14 PM [facility] LABPLATELET DYFHK335787 - 400 Thousand/uL03/14/2025 12:14 PM [facility] LABMPV9.97.5 - 12.5 fL03/14/2025 12:[address] [facility] HNIDXKLQGBOICX14.8%03/14/2025 12:14 PM [facility] SCKGNEQBXOTQZB17.8%03/14/2025 12:14 PM [facility] NKHXYWFGJFKA19.1% 03/14/2025 12:14 PM [facility] LABEOSINOPHILS 3.0%03/14/2025 12:14 PM [facility] LAB BASOPHILS0.3%03/14/2025 12:14 PM [facility] LABABSOLUTE CBGQZPWWBKS28682960 - 7800 cells/uL03/14/2025 12:14 PM [facility] LABABSOLUTE UYYGLXIYAXA8251002 - 3900 cells/uL03/14/2025 12:14 PM [facility] LAB ABSOLUTE SNJKDQIHR100154 - 950 cells/uL03/14/2025 12:14 PM [facility] LABABSOLUTE IHNTLVLFIKE15509 - 500 cells/uL 03/14/2025 12:14 PM [facility] LABABSOLUTE RQZNUICZB874 - 200 cells/uL03/14/2025 12:14 PM [facility] LABSpecimen (Source)Anatomical Location / LateralityCollection Method / VolumeCollection TimeReceived TimeBloodBLOOD SPECIMEN / UnknownQuest Collect / Ddjhewo2403/14/2025 11:55 AM CST03/14/2025 11:57 AM TAX MANAGER CPA Narrative Authorizing ProviderResult TypeResult StatusPriya Wasserman Case PAHEMATOLOGY Final ResultPerforming OrganizationAddressCity/State/ZIP CodePhone Number [facility] [address] [place] [address], [place] [phone] [facility] [address] [place] [address], [place] * CT CARDIAC CORONARY ARTERIES CV DUAL READ (03/14/2025 10:52 AM TAX MANAGER CPA)Anatomical RegionLateralityModalityHEARTComputed TomographySpecimen (Source)Anatomical Location / LateralityCollection Method / VolumeCollection TimeReceived Time Impressions 03/14/2025 12:34 PM TAX MANAGER CPA See separate radiology report for non-cardiac findings. 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 Total calcium score is 518. Severe stenosis in the proximal LAD may contribute to symptoms and should warrant coronary angiography with possible PCI if clinically warranted. Aggressive medical management also recommended. Anatomically normal pulmonary venous anatomy. Well-opacified left atrial appendage without evidence of thrombus. Please see separate radiology report for review of noncardiovascular structures. FINDINGS: CORONARY ANATOMY: Right dominant LEFT MAIN: The left main has mild plaque and degree of stenosis less than 25%. LEFT ANTERIOR DESCENDING: The LAD is a type 3 vessel that wraps around the left ventricular apex. It gives rise to two small diagonal branches which are patent. The body of the LAD has a severe stenosis in the proximal segment (greater than 70%). The mid segment has a moderate stenosis (50%) and a moderate distal stenosis (approximately 50%). CIRCUMFLEX: The left circumflex is nondominant. It gives rise to several small obtuse marginal branches which are patent. The body of the left circumflex has moderate plaque burden with 25-49% stenosis in the proximal and mid vessel and less than 25% stenosis distally. RIGHT CORONARY ARTERY: The right coronary artery is the dominant vessel. It gives rise to the RV marginal branch as well as the right posterior descending artery and posterolateral branch system. The right coronary artery has mixed calcified and noncalcified plaque throughout its course with a 25-49% stenosis in the proximal, mid, and distal vessel. ADDITIONAL FINDINGS: LEFT ATRIAL APPENDAGE: The left atrial appendage is well opacified with contrast without evidence of thrombus. PULMONARY VENOUS ANATOMY: The pulmonary venous anatomy is normal. Coronal measurements are as follows: Right upper pulmonary vein: 19 mm Right lower pulmonary vein: 22 mm Left upper pulmonary vein: 20 mm Left lower pulmonary vein: 17 mm AORTA: The aortic root is normal caliber at 36 x 34 x 36 mm. The ascending aorta is 37 x 37 mm. The aortic valve is anatomically trileaflet. PERICARDIUM: Normal thickness and without an effusion. MD RHONDA Rodriguez/dolly Narrative 03/14/2025 12:34 PM TAX MANAGER CPA Results are automatically released to your [employer] account once available, in compliance with federal regulations. ??This means that you may see your results before your provider has had a chance to review them. ??Please allow 2-3 business days for your provider to comment on the results. THIS IS THE CARDIOLOGY REPORT OF A DUAL READ STUDY. READ THE SEPARATE RADIOLOGY REPORT FOR POTENTIAL INCIDENTAL FINDINGS. REPORTS MAY BE FINALIZED AT DIFFERENT TIMES. STUDY: CT CORONARY ANGIOGRAM, CT CARDIAC MORPHOLOGY, 03/14/2025 STUDY PARAMETERS: Contrast used: 200 cc Omnipaque 350; Medications: Nitro 0.8 mg sublingual x1; heart rate at the time of the scan 126 beats per minute; scan protocol is sequential, followed by FLASH; total DLP 476; Siemens SOMATOM Force [address] INDICATIONS: Atrial fibrillation. PERIPHERAL RISK FACTORS: Diabetes: No. PLAQUE TYPE: Hard: Calcium score = 518. ?? SCAN QUALITY: ??Good. Authorizing ProviderResult TypeResult StatusOctaviaazeb Wasserman Case PACTFinal Result * CT CARDIAC CORONARY ARTERIES RAD DUAL READ (03/14/2025 10:52 AM TAX MANAGER CPA)Anatomical RegionLateralityModalityHEARTComputed TomographySpecimen (Source)Anatomical Location / LateralityCollection Method / VolumeCollection TimeReceived Time 03/15/2025 7:01 AM TAX MANAGER CPA Impressions 03/15/2025 7:01 AM TAX MANAGER CPA : 1. ??See separate cardiology report for cardiac findings. 2. ??No acute pulmonary findings. Please note that all CT scans at this facility use dose modulation, iterative reconstruction and/orweight-based dosing when appropriate to reduce radiation dose to as low as reasonably achievable. Please note that all CT scans at this facility use dose modulation, iterative reconstruction, and/or weight-based dosing when appropriate to reduce radiation dose to as low as reasonably achievable. Dictated by Simi Smith MD @ 03/15/2025 7:01:02 AM (Electronically Signed) Narrative 03/15/2025 7:01 AM TAX MANAGER CPA For Patients: As a result of the Cures Act, medical imaging exams and procedure reports are released immediately into your electronic medical record. You may view this report before your referring provider. If you have questions, please contact your health care provider. THIS IS THE RADIOLOGY OVER READ REPORT OF A DUAL READ STUDY. READ THE SEPARATE CARDIOLOGY REPORT FOR CARDIOVASCULAR FINDINGS. REPORTS MAY BE FINALIZED AT DIFFERENT TIMES. : COMPARISON: ??: No comparison TECHNIQUE: ??: Please see cardiology report for technical information. ?? This exam is being performed in conjunction with the services provided by the [facility] ([facility]). INDICATION: Cardiac over-read. ?? FINDINGS: No central pulmonary emboli. Basilar atelectasis. Procedure Note Simi Smith MD - 03/15/2025 For Patients: As a result of the Cures Act, medical imagingexams and procedure reports are released immediately into your electronicmedical record. You may view this report before your referring provider.If you have questions, please contact your health care provider. THIS IS THE RADIOLOGY OVER READ REPORT OF A DUAL READ STUDY. READ THESEPARATE CARDIOLOGY REPORT FOR CARDIOVASCULAR FINDINGS. REPORTS MAY BEFINALIZED AT DIFFERENT TIMES. : COMPARISON: : No comparison TECHNIQUE: : Please see cardiology report for technical information. This exam is being performed in conjunction with the services provided bythe [facility] ([facility]). INDICATION: Cardiac over-read. FINDINGS: No central pulmonary emboli. Basilar atelectasis. IMPRESSION: : 1. See separate cardiology report for cardiac findings. 2. No acute pulmonary findings. Please note that all CT scans at this facility use dose modulation,iterative reconstruction and/or weight-based dosing when appropriate toreduce radiation dose to as low as reasonably achievable. Please note that all CT scans at this facility use dose modulation,iterative reconstruction, and/or weight-based dosing when appropriate toreduce radiation dose to as low as reasonably achievable. Dictated by Simi Smith MD @ 03/15/2025 7:01:02 AM (Electronically Signed) Authorizing ProviderResult TypeResult StatusMarazeb Wasserman Case PACTFinal Result * TSH WITH REFLEX (03/14/2025 9:45 AM TAX MANAGER CPA)ComponentValueRef RangeTest Method Analysis TimePerformed AtPathologist SignatureTSH W/REFLEX TO FT42.160.40 - 4.50 mIU/L105/16/2024 3:44 AM CSTQUEST DIAGNOSTICSSpecimen (Source)Anatomical Location / LateralityCollection Method / VolumeCollection TimeReceived Time BloodBLOOD SPECIMEN / UnknownQuest Collect / Igikhrx9703/14/2025 9:45 AM TAX MANAGER CPA 03/14/2025 9:52 AM TAX MANAGER CPA Narrative [facility] - 03/15/2025 3:44 AM TAX MANAGER CPA FASTING:YES FASTING: YES Authorizing ProviderResult TypeResult StatusLisa Smith MD CHEMISTRYFinal ResultPerforming OrganizationAddressty/State/ZIP CodePhone Number [facility] [address] [place] [address], [place] [phone] * CREATININE,ISTAT (03/14/2025 9:45 AM TAX MANAGER CPA)ComponentValueRef RangeTest Method Analysis TimePerformed AtPathologist SignaturePOCT,CREATININE, ISTAT1.30.6 - 1.3 mg/dL03/14/2025 9:59 AM [facility] Specimen (Source)Anatomical Location / LateralityCollection Method / Volume Collection TimeReceived TimeBloodBLOOD SPECIMEN / UnknownQuest Collect / Paevpzw1803/14/2025 9:45 AM CST03/14/2025 9:48 AM TAX MANAGER CPA Narrative [facility] - 03/14/2025 9:59 AM TAX MANAGER CPA FASTING:YES FASTING: YES Authorizing ProviderResult TypeResult StatusPriya Lisy Leonardo PACHEMISTRYFinal ResultPerforming OrganizationAddressCity/State/ZIP CodePhone Number [facility] [address] [place] [address], [place] [phone] [facility] [address] [place] [address], * LIPID PANEL (03/14/2025 9:45 AM TAX MANAGER CPA)ComponentValueRef RangeTest MethodAnalysis TimePerformed AtPathologist SignatureCHOLESTEROL, EKRCT494<200 mg/dL 03/15/2025 3:44 AM CSTQUEST MPQROHVYQEMJSQGRNXXOURRJ222<150 mg/dL03/15/2025 3:44 AM CSTQUEST DIAGNOSTICSHDL RZREJUIHNOB20> OR = 40 mg/dL03/15/2025 3:44 AM CSTQUEST DIAGNOSTICSNON HDL IJWWHPDARPU423<130 mg/dL (calc)03/15/2025 3:44 AM CSTQUEST DIAGNOSTICSComment: For patients with diabetes plus 1 major ASCVD risk factor, treating to a non-HDL-C goal of <100 mg/dL (LDL-C of <70 mg/dL) is considered a therapeutic option. CHOL/HDLC RATIO2.5<5.0 (calc)03/15/2025 3:44 AM [facility] LDL-QHNFWNNJRKQ90ka/dL (calc)03/15/2025 3:44 AM CSTQUEST DIAGNOSTICSComment: Reference range: <100 Desirable range <100 mg/dL for primary prevention; <70 mg/dL for patients with CHD or diabetic patients with > or = 2 CHD risk factors. LDL-C is now calculated using the Khoa calculation, which is a validated novel method providing better accuracy than the Friedewald equation in the estimation of LDL-C. Edgar SS et al. VICENTA. 2013;310(82): 1618-3000 (http://education.Mingyian/faq/YUZ566) Specimen (Source)Anatomical Location / LateralityCollection Method / Volume Collection TimeReceived TimeBloodBLOOD SPECIMEN / UnknownQuest Collect / Unknown 03/14/2025 9:45 AM CST03/14/2025 9:52 AM TAX MANAGER CPA Narrative [facility] - 03/15/2025 3:44 AM TAX MANAGER CPA FASTING:YES FASTING: YES Authorizing ProviderResult TypeResult StatusPriya Lisy Case PACHEMISTRYFinal ResultPerforming OrganizationAddressCity/State/ZIP CodePhone Number [facility] [address] [address], [place] [phone] * SCAN CORRESP-LABORATORY RESULTS (03/13/2025 12:00 AM TAX MANAGER CPA) Narrative Authorizing ProviderResult TypeResult StatusScannerOTHERFinal Result * SCAN CORRESP-EKG RESULTS (03/13/2025 12:00 AM TAX MANAGER CPA) Narrative Authorizing ProviderResult TypeResult StatusScannerOTHERFinal Result * SCAN CORRESP-IMAGING (03/13/2025 12:00 AM TAX MANAGER CPA)Anatomical RegionLaterality ModalityOther Narrative Authorizing ProviderResult TypeResult StatusScannerOTHERFinal Result * US THYROID/PARATHYROID (03/05/2025 3:37 PM TAX MANAGER CPA)Anatomical RegionLaterality ModalityTHYROIDUltrasoundSpecimen (Source)Anatomical Location / Laterality Collection Method / VolumeCollection TimeReceived Time03/05/2025 5:56 PM TAX MANAGER CPA Impressions 03/05/2025 5:56 PM TAX MANAGER CPA There is no suspicious right-sided thyroid nodule. Dictated by Aneesh Tamayo MD @ 03/05/2025 5:56:06 PM (Electronically Signed) Narrative 03/05/2025 5:56 PM TAX MANAGER CPA For Patients: As a result of the Cures Act, medical imaging exams and procedure reports are released immediately into your electronic medical record. You may view this report before your referring provider. If you have questions, please contact your health care provider. INDICATION: Follow-up PET scan COMPARISON: CT-PET 02/15/2025 TECHNIQUE: Cedillo scale and color Doppler images were acquired of the thyroid gland. FINDINGS: The thyroid gland demonstrates normal uniform echogenicity and has a smooth outer contour. The right lobe measures 3.6 x 1.8 x 1.6 cm and the left lobe measures 3.9 x 1.4 x 1.3 cm in size. Isthmus measures 1.7 millimeters. Mostly solid TR 4 nodule left thyroid lobe measures 6 x 6 x 10 millimeters. Hyperechoic nodule right thyroid lobe measures 8 x 6 x 6 millimeters, TR 3. The color Doppler imagesdemonstrate normal vascularity. There is no evidence of cervical lymphadenopathy or parathyroid mass. Procedure Note Aneesh Tamayo MD - 03/05/2025 For Patients: As a result of the s Act, medical imagingexams and procedure reports are released immediately into your electronicmedical record. You may view this report before your referring provider.If you have questions, please contact your health care provider. INDICATION: Follow-up PET scan COMPARISON: CT-PET 02/15/2025 TECHNIQUE: Cedillo scale and color Doppler images were acquired of the thyroid gland. FINDINGS: The thyroid gland demonstrates normal uniform echogenicity and has asmooth outer contour. The right lobe measures 3.6 x 1.8 x 1.6 cm and theleft lobe measures 3.9 x 1.4 x 1.3 cm in size. Isthmus measures 1.7millimeters. Mostly solid TR 4 nodule left thyroid lobe measures 6 x 6 x10 millimeters. Hyperechoic nodule right thyroid lobe measures 8 x 6 x 6millimeters, TR 3. The color Doppler images demonstrate normalvascularity. There is no evidence of cervical lymphadenopathy orparathyroid mass. IMPRESSION: There is no suspicious right-sided thyroid nodule. Dictated by Aneesh Tamayo MD @ 03/05/2025 5:56:06 PM (Electronically Signed) Authorizing ProviderResult TypeResult StatusCyntfaby Smith MDUSFinal Result * ECHO TTE COMPLETE WO CONTRAST (02/19/2025 2:43 PM TAX MANAGER CPA)ComponentValueRef Range Test MethodAnalysis TimePerformed AtPathologist SignatureAORTIC VALVE MEAN PG8 mmHgEJECTION WUYHDGHA62%PEAK TR VELOCITY2.6m/sLVEDD4.4cmEJECTION ZUDIDDER65 - 55%Anatomical RegionLateralityModalityUltrasoundSpecimen (Source)Anatomical Location / LateralityCollection Method / VolumeCollection TimeReceived Time 02/19/2025 2:09 PM TAX MANAGER CPA Narrative 02/19/2025 2:57 PM TAX MANAGER CPA ECHOCARDIOGRAM JAYSON TAO ? Accession#: ?? [id number] : ?1940 84 years Study Date: ?? 02/19/2025 2:09:40 PM Gender: M ?BP: ? 139/93 mmHg Height: 183.00 cm ?BSA: ?2.00 m? Weight: 78.00 kg ? Tech: ? MJS ? Referring MD: LISA SMITH Site: ? [facility] [place] Location: Mobile OP Patient Location: Outpatient. Procedure: 2D, Color Doppler and Spectral Doppler. Indication for study: Aorta enlarged on CT At-fib Cardiac Rhythm: Irregular.Study quality: Good. Final Impressions: 1. Normal left ventricular size, normal wall thickness, low normal global systolic function, calculated EF of 53 %. 2. Moderately enlarged left atrium. 3. The aortic valve is sclerotic, mild stenosis and no regurgitation. 4. Tricuspid valve is normal, moderate-severe tricuspid regurgitation. 5. The ascending aorta is normal for age/sex/bsa, diameter of 3.9 cm (upper limit of normal for age, sex, and BSA is 4.4 cm*), Height Index 2.13. Chamber Sizes and Function Normal left ventricular size, normal wall thickness, low normal global systolic function, calculated EF of 53 %. No resting regional wall motion abnormality visualized. Left atrial size is moderatelyenlarged. Right ventricular cavity size is normal, global systolic RV function is normal. The rightatrium is moderately enlarged. Right atrial area is 24 cm?. The pulmonary artery is of normal size and origin. The sinus of Valsalva is normal sized. The ascending aorta is normal for age/sex/bsa. Valves, RV Pressures and Diastolic Function The aortic valve is sclerotic, mild stenosis and no regurgitation. The mitral valve is normal in structure, mild mitral regurgitation. Indeterminate pattern of LV diastolic filling. The tricuspid valve is normal in structure, moderate- severe tricuspid regurgitation. The tricuspid regurgitant velocity is 2.6 m/s, the estimated right ventricular systolic pressure is 27 mmHg plus right atrial pressure. There is normal estimated pulmonary pressure by tricuspid regurgitation velocity and right atrial pressure. The pulmonic valve is normal. Mild pulmonary regurgitation. TTE images do not appear adequate for transcather intervention with patient supine. Masses, Effusion, Shunts There is no pericardial effusion. The inferior vena cava is normal sized, respiratory size variation greater than 50%. No left to right shunting was detected by limited color flow Doppler interrogation of the interatrial septum. MEASUREMENTS AND CALCULATIONS 2-D Measurements and LV Function: LVID (d) ? 4.4 cm ? Planimetered EF 53 % LVID (s) ? 3.2 cm ? LV FS% (2D) ? 27 % IVS (d) ?1.0 cm ? LVOT diameter ?? 2.2 cm LVPW (d) ? 1.0 cm ? HR ?87 bpm Ao Sinus ? 3.6 cm ? LA Vol index ?48 ml/m2 Ao Sinus ULN 4.2 cm * ? RA area ? 24 cm? Asc Ao ? 3.9 cm Asc Ao ULN ?? 4.4 cm * * Input age outside of range, reported values correspond to Age = 78 Diastology: Mitral ?Tissue Doppler E Peak 0.9 m/s ??e', Septum ? 0.08 m/s A Peak 0.3 m/s ??e', Lateral ?0.13 m/s E/A ?2.6 ?E/e' Average ?? 8.73 DT ? 128 msec Aortic Valve: Vmax ? 1.8 m/s ??CHU (V) ?? 1.79 cm? VTI ?0.42 m ?? CHU (I) ?? 1.57 cm? LVOT V max 0.8 m/s ??Max PG ?13 mmHg LVOT VTI ?? 0.17 m ?? Mean PG ?? 8 mmHg SV ? 67 ml ?Dim Index 0.41 SV index ?? 33 ml/m? CO ?5.8 l/min ?CI ?2.9 l/min/m? Mitral Valve: MVA ?5.9 cm? MV P 1/2 37 msec Tricuspid Valve and estimated PA pressures: TR Vmax 2.6 m/s TAPSE 1.7 cm TR maxG 27 mmHg . This study was interpreted by an [facility] accredited facility. ??Final ?? Procedure Note Elio Holloway MD - 02/19/2025 ECHOCARDIOGRAM JAYSON TAO : 1940 84 years Study Date: 02/19/2025 2:09:40 PM Gender: M BP: 139/93 mmHg Height: 183.00 cm BSA: 2.00 m? Weight: 78.00 kg Tech: RESHMA Referring MD: LISA SMITH Site: [facility] [place] Location: Mobile OP Patient Location: Outpatient. Procedure: 2D, Color Doppler and Spectral Doppler. Indication for study: Aorta enlarged on CT At-fib Cardiac Rhythm: Irregular.Study quality: Good. Final Impressions: 1. Normal left ventricular size, normal wall thickness, low normal global systolic function, calculated EF of 53 %. 2. Moderately enlarged left atrium. 3. The aortic valve is sclerotic, mild stenosis and no regurgitation. 4. Tricuspid valve is normal, moderate-severe tricuspid regurgitation. 5. The ascending aorta is normal for age/sex/bsa, diameter of 3.9 cm(upper limit of normal for age, sex, and BSA is 4.4 cm*), Height Index2.13. Chamber Sizes and Function Normal left ventricular size, normal wall thickness, low normal globalsystolic function, calculated EF of 53 %. No resting regional wall motionabnormality visualized. Left atrial size is moderately enlarged. Rightventricular cavity size is normal, global systolic RV function is normal.The right atrium is moderately enlarged. Right atrial area is 24 cm?. Thepulmonary artery is of normal size and origin. The sinus of Valsalva isnormal sized. The ascending aorta is normal for age/sex/bsa. Valves, RV Pressures and Diastolic Function The aortic valve is sclerotic, mild stenosis and no regurgitation. Themitral valve is normal in structure, mild mitral regurgitation.Indeterminate pattern of LV diastolic filling. The tricuspid valve isnormal in structure, moderate- severe tricuspid regurgitation. Thetricuspid regurgitant velocity is 2.6 m/s, the estimated right ventricularsystolic pressure is 27 mmHg plus right atrial pressure. There is normalestimated pulmonary pressure by tricuspid regurgitation velocity and rightatrial pressure. The pulmonic valve is normal. Mild pulmonary regurgitation. TTE images do not appear adequate for transcatherintervention with patient supine. Masses, Effusion, Shunts There is no pericardial effusion. The inferior vena cava is normal sized, respiratory size variation greater than 50%. No left to right shunting was detected by limited color flow Doppler interrogation of the interatrialseptum. MEASUREMENTS AND CALCULATIONS 2-D Measurements and LV Function: LVID (d) 4.4 cm Planimetered EF 53% LVID (s) 3.2 cm LV FS% (2D) 27% IVS (d) 1.0 cm LVOT diameter2.2 cm LVPW (d) 1.0 cm HR 87bpm Ao Sinus 3.6 cm LA Vol index 48ml/m2 Ao Sinus ULN 4.2 cm * RA area 24cm? Asc Ao 3.9 cm Asc Ao ULN 4.4 cm * * Input age outside of range, reported values correspond to Age = 78 Diastology: Mitral Tissue Doppler E Peak 0.9 m/s e', Septum 0.08 m/s A Peak 0.3 m/s e', Lateral 0.13 m/s E/A 2.6 E/e' Average 8.73 DT 128 msec Aortic Valve: Vmax 1.8 m/s CHU (V) 1.79 cm? VTI 0.42 m CHU (I) 1.57 cm? LVOT V max 0.8 m/s Max PG 13 mmHg LVOT VTI 0.17 m Mean PG 8 mmHg SV 67 ml Dim Index 0.41 SV index 33 ml/m? CO 5.8 l/min CI 2.9 l/min/m? Mitral Valve: MVA 5.9 cm? MV P 1/2 37 msec Tricuspid Valve and estimated PA pressures: TR Vmax 2.6 m/s TAPSE 1.7 cm TR maxG 27 mmHg . This study was interpreted by an [facility] accredited facility. Final Authorizing ProviderResult TypeResult StatusCynthia Michaela Smith MDECHO ORDFinal Result * PET CT SKULL BASE TO MID THIGH INITIAL TREAT (02/15/2025 9:37 AM TAX MANAGER CPA) Anatomical RegionLateralityModalityPositron Emission Tomography (PET)Specimen (Source)Anatomical Location / LateralityCollection Method / VolumeCollection TimeReceived Time02/16/2025 8:21 AM TAX MANAGER CPA Impressions 02/16/2025 8:21 AM TAX MANAGER CPA 1. Faintly FDG avid 1.5 x 0.9 cm lung nodule in the left lower lobe raises concern for a primary lung neoplasm with low-level metabolic uptake. Suggest correlation with tissue sampling pathology. 2. A faintly FDG avid 0.8 x 0.6 cm perifissural polygonal lung nodule in the left lower lobe is nonspecific. This may represent an intrapulmonary lymph node. No definite evidence to support a high-grade metabolically active primary lung neoplasm at this site. 3. Multistation moderately FDG avid lymphadenopathy in the mediastinal and bilateral hilar vilma stations are nonspecific. Given the sequela of granulomatous disease as seen with a calcified lung granuloma in the right lower lobe, the FDG avid lymph nodes may represent inflammatory process such as s arcoidosis, or metabolically active lymphoma. Vilma metastatic disease related to the faintly FDG avid left lower lobe lung nodule is less likely. 4. Moderate FDG uptake in the right thyroid corresponding to a 1.4 cm thyroid nodule best seen on coronal views raises concern for a primary thyroid neoplasm. Correlate with thyroid ultrasound. 5. Moderately FDG avid 1.0 x 0.6 cm left level 2 cervical node is nonspecific and may be inflammatory. Dictated by Jared Young MD @ 02/16/2025 8:21:05 AM (Electronically Signed) Narrative 02/16/2025 8:21 AM TAX MANAGER CPA For Patients: As a result of the Cures Act, medical imaging exams and procedure reports are released immediately into your electronic medical record. You may view this report before your referring provider. If you have questions, please contact your health care provider. EXAM: FDG PET-CT Skull Base to Thighs CLINICAL INFORMATION: 84-year-old man with history of lung nodules. ??PET CT ordered for additional characterization. TECHNIQUE: Radiopharmaceutical: 18F-fluorodeoxyglucose (18F-FDG) Dose: 10.8 milliCurie. Blood glucose: 99 mg/dL. Image acquisition: At approximately 60 minutes following IV tracer administration, positron emission tomography was performed from the skull base through the mid thigh. Non-contrast low-dose helical CT imaging was performed over the same range without breath-hold for attenuation correction of PET images and anatomic correlation; it is neither sufficient, nor should it be substituted for diagnostic purposes. COMPARISON: CT chest abdomen and pelvis 01/26/2025. FINDINGS: Mediastinal blood pool FDG uptake: ??SUVmax 2.6 (image 116). Liver background parenchymal FDG uptake: ?? SUVmax 2.9 (image 159). PET Findings: Moderate FDG uptake in the right thyroid corresponding to a 1.4 cm thyroid nodule best seen on coronal views (images 78-82). Faintly FDG avid 1.5 x 0.9 cm lung nodule in the ??left lower lobe ??SUVmax 2.2 (image 143). Faint FDG uptake is demonstrated at a perifissural polygonal lung nodule in the left lower lobe measuring 0.8 x 0.6 cm, SUVmax 1.1 (image 136) Multistation moderately FDG avid lymphadenopathy in the mediastinal and bilateral hilar vilma stations, for example as below: -1.5 cm x 1.2 cm subcarinal node ??SUVmax 7.6 (image 105). -Right hilar node ??SUVmax 6.8 (image 117). -Left hilar node ??SUVmax 4.7 (image 114). Moderately FDG avid 1.0 x 0.6 cm left level 2 cervical node is nonspecific and may be inflammatory ??SUVmax 3.5 (image 41). No abnormal FDG uptake in the visualized skeleton. Tracer uptake elsewhere is physiologic. Non-PET findings: Sequela of granulomatous disease. Coronary artery calcifications. Atherosclerotic calcifications ofthe thoracic and abdominal aorta. ??Prostatomegaly. Multilevel degenerative changes in the spine. Left-sided scoliosis of the thoracolumbar spine. Procedure Note Jared Young MD - 02/16/2025 For Patients: As a result of the Century Cures Act, medical imagingexams and procedure reports are released immediately into your electronicmedical record. You may view this report before your referring provider.If you have questions, please contact your health care provider. EXAM: FDG PET-CT Skull Base to Thighs CLINICAL INFORMATION: 84-year-old man with history of lung nodules. PET CT ordered foradditional characterization. TECHNIQUE: Radiopharmaceutical: 18F-fluorodeoxyglucose (18F-FDG) Dose: 10.8 milliCurie. Blood glucose: 99 mg/dL. Image acquisition: At approximately 60 minutes following IV tracer administration, positron emission tomography was performed from the skullbase through the mid thigh. Non-contrast low-dose helical CT imaging wasperformed over the same range without breath-hold for attenuationcorrection of PET images and anatomic correlation; it is neithersufficient, nor should it be substituted for diagnostic purposes. COMPARISON: CT chest abdomen and pelvis 01/26/2025. FINDINGS: Mediastinal blood pool FDG uptake: SUVmax 2.6 (image 116). Liver background parenchymal FDG uptake: SUVmax 2.9 (image 159). PET Findings: Moderate FDG uptake in the right thyroid corresponding to a 1.4 cm thyroidnodule best seen on coronal views (images 78-82). Faintly FDG avid 1.5 x 0.9 cm lung nodule in the left lower lobe SUVmax2.2 (image 143). Faint FDG uptake is demonstrated at a perifissural polygonal lung nodulein the left lower lobe measuring 0.8 x 0.6 cm, SUVmax 1.1 (image 136) Multistation moderately FDG avid lymphadenopathy in the mediastinal andbilateral hilar vilma stations, for example as below: -1.5 cm x 1.2 cm subcarinal node SUVmax 7.6 (image 105). -Right hilar node SUVmax 6.8 (image 117). -Left hilar node SUVmax 4.7 (image 114). Moderately FDG avid 1.0 x 0.6 cm left level 2 cervical node is nonspecificand may be inflammatory SUVmax 3.5 (image 41). No abnormal FDG uptake in the visualized skeleton. Tracer uptake elsewhere is physiologic. Non-PET findings: Sequela of granulomatous disease. Coronary artery calcifications.Atherosclerotic calcifications of the thoracic and abdominal aorta.Prostatomegaly. Multilevel degenerative changes in the spine. Left-sidedscoliosis of the thoracolumbar spine. IMPRESSION: 1. Faintly FDG avid 1.5 x 0.9 cm lung nodule in the left lower lobe raises concern for a primary lung neoplasm with low-level metabolic uptake.Suggest correlation with tissue sampling pathology. 2. A faintly FDG avid 0.8 x 0.6 cm perifissural polygonal lung nodule inthe left lower lobe is nonspecific. This may represent an intrapulmonarylymph node. No definite evidence to support a high-grade metabolicallyactive primary lung neoplasm at this site. 3. Multistation moderately FDG avid lymphadenopathy in the mediastinal and bilateral hilar vilma stations are nonspecific. Given the sequela of granulomatous disease as seen with a calcified lung granuloma in the rightlower lobe, the FDG avid lymph nodes may represent inflammatory processsuch as sarcoidosis, or metabolically active lymphoma. Vilma metastaticdisease related to the faintly FDG avid left lower lobe lung nodule isless likely. 4. Moderate FDG uptake in the right thyroid corresponding to a 1.4 cmthyroid nodule best seen on coronal views raises concern for a primarythyroid neoplasm. Correlate with thyroid ultrasound. 5. Moderately FDG avid 1.0 x 0.6 cm left level 2 cervical node isnonspecific and may be inflammatory. Dictated by Jared Young MD @ 02/16/2025 8:21:05 AM (Electronically Signed) Authorizing ProviderResult TypeResult StatusCynthiadele Smith [facility] Final Result * ZIO PATCH XT - weekly to monthly symptoms. (02/07/2025)Specimen (Source) Anatomical Location / LateralityCollection Method / VolumeCollection Time Received Time02/07/2025 Narrative Carlos Flores MD - 03/15/2025 12:00 AM TAX MANAGER CPA Atrial fib throughout. Average HR 103 bpm. Rare PVCs. No symptoms. Please see scan document for full report. Signed By Carlos Flores MD Procedure Note Carlos Flores MD - 03/15/2025 Atrial fib throughout. Average HR 103 bpm. Rare PVCs. No symptoms. Please see scan document for full report. Signed By Carlos Flores MD Authorizing ProviderResult TypeResult StatusCynttnadele Smith MDCARDIAC SERVICES ORDFinal Result * SCAN-RADIOLOGY REPORT (01/26/2025 12:00 AM CDT)Anatomical RegionLaterality ModalityOther Narrative Authorizing ProviderResult TypeResult StatusScannerOTHERFinal Result * SCAN-CT INTERPRETATION (01/26/2025 12:00 AM CDT) Only the most recent of2 resultswithin the time period is included. Anatomical RegionLateralityModalityOther Narrative Authorizing ProviderResult TypeResult StatusScannerOTHERFinal Result from Last 3 Months Insurance Advance Directives * Full Code (Latest Code Status on File) Date ActivatedDate [id number]/19/2025 5:04 PM03/30/2025 10:35 PM QuestionAnswerCommentsCode Status Discussion:* Reviewed Preferences Care Teams Team MemberRelationshipSpecialtyStart DateEnd Date Lisa Smith MD [address] [place] [address] PCP - GeneralFamily Practice08/27/14 Kayden Gonzales Jr., MD Ophthalmology Surgery06/26/11 Milena March, RN, BSN Nurse Navigator - OncologyRegistered Nurse02/22/25 Oc Hutton MD [address] [address] Surgery - Khvsvhvejgastf79/25/25
[2025-03-31 09:00] VITALS: BP 108/73; PULSE 86; RESP 18; TEMP 36.8; O2SAT 98; BMI 23.2
--- NOTE | 2025-03-31 09:20 | ED.GENADULT ---
HPI - General Adult General Chief complaint: Sore Throat Stated complaint: trouble swallowing, had STENTS put in. Time Seen by Provider: 03/31/25 09:04 History of Present Illness HPI narrative: Patient is a 84-year-old gentleman who had cardiac stents x2 placed yesterday. He comes in today as he feels like it is painful to swallow. He states this started when he was having his procedure in the give him oral medications without any water. He is able to swallow soft foods and liquids without any difficulty. He has coughed up a small amount of blood but only minimal. No other significant symptoms other than right wrist pain in the area where his wrist has been splinted and hemostasis device placed. He stated that he is able take the wound dressing off this morning. Related Data Home Medications ?Medication ?Instructions ?Recorded ?Confirmed clopidogrel 75 mg tablet 75 mg PO DAILY 03/31/25 03/31/25 Previous Rx's ?Medication ?Instructions ?Recorded amoxicillin 250 mg-potassium 10 ml PO TID #150 mL 04/24/22 clavulanate 62.5 mg/5 mL oral suspension (Augmentin) apixaban 5 mg tablet (Eliquis) 5 mg PO BID #60 tabs 04/24/22 Allergies Allergy/AdvReac Type Severity Reaction Status Date / Time No Known Drug Allergies Allergy Verified 01/26/25 18:06 Review of Systems Status of ROS: Reports: 10 or more systems reviewed and unremarkable except as noted in History and below [facility] Medical History [place] (hard of hearing) ?H91.90 - Unspecified hearing loss, unspecified ear (ICD-10) 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, 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) ?G62.9 - Polyneuropathy, unspecified (ICD-10) ?H90.5 - Unspecified sensorineural hearing loss (ICD-10) Surgical History H/O rectal sphincterotomy ?Z98.890 - Other specified postprocedural states (ICD-10) H/O hemicolectomy ?Z90.49 - Acquired absence of other specified parts of digestive tract (ICD-10) History of total left knee replacement ?Z96.652 - Presence of left artificial knee joint (ICD-10) H/O fracture of ankle ?Z87.81 - Personal history of (healed) traumatic fracture (ICD-10) H/O hernia repair ?Z98.890 - Other specified postprocedural states (ICD-10) ?Z87.19 - Personal history of other diseases of the digestive system (ICD-10) Social History Smoking Status: Unknown if ever smoked How often do you have a drink containing alcohol: never AUDIT-C Alcohol total score: 0 Non-prescribed substance use: denies use service: No Exam Narrative: Exam Narrative: EXAM GENERAL: Patient appears comfortable and well. EYES: No scleral icterus. LYMPH: No supraclavicular or cervical lymphadenopathy. SKIN: Bruising ecchymosis around the right radial access site. Dressing was removed and no signs of pseudo aneurysm or significant bleeding. EXT: No dependent lower extremity pedal edema. HEART: Regular rate and rhythm with no murmurs, rubs, or gallops. LUNGS: Clear to auscultation bilaterally with no crackles or wheezes. ABD: Soft, non tender, non distended. PSYCH: Good eye contact, speech is not pressured. Const: Vital Signs, click to edit/add: Vital Signs - 24 hr 03/31/25 09:00 Temperature 98.2 F Pulse Rate [Pulse Oximeter] 86 Respiratory Rate 18 Blood Pressure [Le ft Upper Arm] 108/73 Pulse Oximetry 98 Oxygen Delivery Me thod Room Air Course Course ED Course: Patient seen and examined. He clearly has a soft vaginal abrasion. He does not need endoscopy as he is able to take soft foods and liquids. I do not think he would benefit from proton pump inhibitor. I did remove the packing from his right wrist and he is doing well. He will follow a liquid/soft diet for the next 3 days and then advance as tolerated. Vital Signs Vital signs: Initial Vital Signs Temperature 98.2 F 03/31/25 09:00 Temperature Source Temporal Artery Scan 03/31/25 09:00 Pulse Rate 86 03/31/25 09:00 Respiratory Rate 18 03/31/25 09:00 Blood Pressure 108/73 03/31/25 09:00 Blood Pressure Mean 84 03/31/25 09:00 Blood Pressure Position Supine 03/31/25 09:00 Pulse Oximetry 98 03/31/25 09:00 Oxygen Delivery Method Room Air 03/31/25 09:00 Vital Signs Temperature 98.2 F 03/31/25 09:00 Pulse Rate 86 03/31/25 09:00 Respiratory Rate 18 03/31/25 09:00 Blood Pressure 108/73 03/31/25 09:00 Pulse Oximetry 98 03/31/25 09:00 Oxygen Delivery Method Room Air 03/31/25 09:00 Temperature 98.2 F 03/31/25 09:00 Pulse Rate 86 03/31/25 09:00 Respiratory Rate 18 03/31/25 09:00 Blood Pressure 108/73 03/31/25 09:00 Pulse Oximetry 98 03/31/25 09:00 Oxygen Delivery Method Room Air 03/31/25 09:00 Discharge Plan Discharge Clinical Impression: Abrasion of esophagus Patient Disposition: Home, Self-Care Condition: Stable Additional Instructions: Continue current medications Soft diet with plenty of fluids for the next 3 days and then advance as tolerated. Reported any bleeding at the right wrist site. Follow-up as per schedule. Activity Level: No Restrictions Discharge Diet: Regular Prescriptions: No Action clopidogrel 75 mg tablet 75 mg PO DAILY Eliquis 5 mg tablet 5 mg PO BID Qty: 60 2RF amoxicillin-pot clavulanate [Augmentin] 250-62.5 mg/5 mL suspension for reconstitution 10 ml PO TID Qty: 150 0RF Rx Instructions: finish three days of antibiotics; three doses each day Follow Up/Referrals: Lisa Marcus MD [Primary Care Provider, Family Practice] Stand Alone Forms: MyHealth Info Instructions
== END 2025-03-31 09:32 | disposition home or self-care (01) ==
PROVIDERS: Emergency Provider Internal Medicine; PCP Family Medicine
DX: S27.818A Other injury of esophagus (thoracic part), initial encounter (principal); Y83.8 Other surgical procedures as the cause of abnormal reaction of the patient, or of later complication, without mention of misadventure at the time of the procedure
CPT/HCPCS: 99282; 99283